=== PATIENT | male | born 1955 | race Caucasian/White ===

== ENCOUNTER 2017-02-06 07:41 | Emergency (ER) | payer BC ==
[~2017-02-06] VITALS: Ht 167.6 cm; Wt 81.6 kg
[2017-02-06 08:59] LABS: BASO % 0.2 % (0.0-1.0); EOS # 0.1 K/mm3 (0.0-0.50); EOS % 0.5 % (0.0-3.0); LARGE UNSTAINED CELL # 0.2 K/mm3 (0.0-0.4); LARGE UNSTAINED CELL % 1.4 % (0.0-4.0); LYMPH # 1.1 K/mm3 (1.5-4.5); LYMPH % 5.9 % (24.0-44.0); MEAN CORPUSCULAR HEMOGLOBIN 31.2 pg (27.0-33.0); MEAN CORPUSCULAR VOLUME 91.8 fl (80.0-96.0); MONO % 6.5 % (0.0-5.0); NEUTROPHILS # 12.7 K/mm3 (1.8-7.7); NEUTROPHILS % 85.5 % (36.0-66.0); PLATELET COUNT, AUTOMATED 191 k/mm3 (150-450); RED CELL DISTRIBUTION WIDTH 12.6 % (11.5-14.5); WHITE BLOOD COUNT 14.9 K/mm3 (4.0-10.0)
[2017-02-06 09:13] LABS: ALBUMIN 3.1 GM/DL (3.2-5.2); ALBUMIN/GLOBULIN RATIO 0.67 (1.00-1.93); ALKALINE PHOSPHATASE 101 U/L (45-117); ALT/SGPT 22 U/L (12-78); ANION GAP 9 MEQ/L (8-16); AST/SGOT 16 U/L (15-37); BILIRUBIN,DIRECT 0.2 MG/DL (0.0-0.2); BILIRUBIN,TOTAL 0.7 MG/DL (0.2-1.0); BLOOD UREA NITROGEN 14 MG/DL (7-18); CALCIUM LEVEL 9.4 MG/DL (8.8-10.2); CARBON DIOXIDE LEVEL 26 MEQ/L (21-32); CHLORIDE LEVEL 101 MEQ/L (98-107); GLOMERULAR FILTRATION RATE > 60.0 (>49); GLUCOSE, FASTING 304 MG/DL (80-110); POTASSIUM SERUM 3.9 MEQ/L (3.5-5.1); SODIUM LEVEL 136 MEQ/L (136-145); TOTAL PROTEIN 7.7 GM/DL (6.4-8.2)
[2017-02-06 09:15] LABS: ERYTHROCYTE SEDIMENTATION RATE 65 mm/hr (0-20)
--- NOTE | 2017-02-06 09:29 | ECGEPIP ---
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
[2017-02-06] MEDS ORDERED: ERTAPENEM SODIUM 1 GM in NS MINI-BAG PLUS 50 ML IV ONE (09:45)
--- NOTE | 2017-02-06 10:02 | REP ---
History of ulcer/osteomyelitis. I have not been given history of recent trauma, however, there is a divergent Lisfranc variant with the first cuneiform displaced medially and the second cuneiform displaced laterally along with abnormal widening between the bases of the 1st and 2nd metatarsals. There is evidence of a comminuted fracture involving all three cuneiforms and I cannot rule out the possibility of a concomitant cuboid fracture. There is a fracture of the navicular along its distal and lateral margins. The bones are demineralized. There is extensive soft tissue swelling. There is a plantar calcaneal heel spur. IMPRESSION: Marked mid foot abnormalities with fractures and Lisfranc divergent variant as described above. Plain film examination cannot rule out osteomyelitis. Signed by Edin Barboza DO 02/06/2017 10:11 A
--- NOTE | 2017-02-06 10:05 | REP ---
REASON: Hypertension. COMPARISON: None. FINDINGS: The superior mediastinal structures are midline. The cardiac silhouette is unremarkable in size, shape, and position. The diaphragmatic surfaces of the lungs are regular, and the costophrenic angles are clear. The pulmonary avendaño are clear. The imaged osseous structures are intact. IMPRESSION: There is no acute cardiopulmonary disease. Signed by Edin Barboza DO 02/06/2017 10:11 A
[2017-02-06 10:50] VITALS: BP 199/84
[2017-02-06] MEDS ORDERED: HumuLIN R (REGULAR) INSULIN (NovoLIN R) **100U/ML** PER UNIT SC STA (11:37)
[2017-02-06] MEDS ORDERED: LISINOPRIL 10 MG TAB PO ONE (13:00)
[2017-02-06 13:21] VITALS: BP 209/71
== END 2017-02-06 14:51 | disposition short-term general hospital (02) ==
LOC: M ED 08:36
DX: E11.618 Type 2 diabetes mellitus with other diabetic arthropathy (principal); I10 Essential (primary) hypertension; M86.172 Other acute osteomyelitis, left ankle and foot; M77.32 Calcaneal spur, left foot; S92.242A Displaced fracture of medial cuneiform of left foot, initial encounter for closed fracture; S92.222A Displaced fracture of lateral cuneiform of left foot, initial encounter for closed fracture; S92.252A Displaced fracture of navicular [scaphoid] of left foot, initial encounter for closed fracture; X58.XXXA Exposure to other specified factors, initial encounter; Y92.9 Unspecified place or not applicable; Y93.9 Activity, unspecified; Y99.9 Unspecified external cause status; Z82.49 Family history of ischemic heart disease and other diseases of the circulatory system; Z83.49 Family history of other endocrine, nutritional and metabolic diseases; Z82.3 Family history of stroke; Z79.4 Long term (current) use of insulin; Z79.899 Other long term (current) drug therapy
CPT/HCPCS: 36415; 71020; 73630; 80048; 80076; 82550; 82553; 83036; 83605; 84443; 85025; 85652; 86140; 87040; 87070; 87077; 87186; 87205; 93005; 93041; 94760; 96372; 96374; 99285; J1335

== ENCOUNTER 2017-02-16 10:28 | Inpatient (IN) | payer BC ==
[~2017-02-16] VITALS: Ht 167.6 cm; Wt 87.6 kg
[2017-02-18] MEDS: MIRALAX *UNIT DOSE* 17GM PACKET PO SCH (09:00)
[2017-02-18] MEDS ORDERED: FLEET ENEMA PR PRN (13:30)
[2017-02-18] MEDS ORDERED: MOM 30ML SUSPENSION UDC PO PRN (13:30)
[2017-02-18 14:00] VITALS: BP 168/74
--- NOTE | 2017-02-18 14:24 | CR.PDOC ---
[facility] Consultation Consultation DATE OF ADMISSION: 02/18/17 ATTENDING: Dr. Rivera PCP: HPI: 61yoM transferred from [facility] to [facility] under the care of Dr Rivera. Pt was treated there after developing a left foot ulcer approximately 2 weeks prior to admission seen in the ED 02/06/17 and transferred to [facility]. He had I/D 02/07 and was found to have sepsis, S aureus/Strep milleri OM as per bone culture. He was newly diagnosed IDDM during the admission with A1c 10.0. Noted to have PVD undergoing left femoral endarterectomy/ Femoral popliteal bypass 02/10/17. Found to have RLE DVT 02/15/17 now on Xarelto. Denies any fevers , chills, weakness, fatigue, DOUGLAS, CP, SOB, cough, palpitations, abdominal pain, N /V/D or changes in bowel or bladder habits. Upon presentation to the hospital the hospitalist team was consulted to assist with medical management. PMHx: OM left foot. Bone culture S aureus/Strep milleri. Seen by ID, Dr Arnav Jang , IV cefazolin until 03/25/17. PICC placed. H/O MSSA/left foot ulcer Left Charcot foot. DM HTN PVD. Iliac artery occlusion, S/P left femoral endarterectomy/Left fem pop bypass 02/10/17. Vascular-Dr Dodge. Peripheral neuropathy CKD2 alcohol use DVT RLE TTE [facility] 02/07/17 EF 55%, nml diastolic function. Thrombocytopenia. Hematology Dr Yaa Jang. PSHX: Left foot wound I/D 02/07 [facility] PICC 02/11 [facility]. S/P left femoral endarterectomy/Left fem pop bypass 02/10/17 [facility] SOCHX: Resides in: [facility] Marital Status: Tobacco use: former smoker, quit 1991 ETOH: 2-3 beers daily Illicit Drugs: Denies FAMHX: Mother: Alive, DM, HTN Father: , CAD, CVA, HTN Siblings: Alive, well Children: Alive, well Unexpected deaths due to medical reasons: None. ROS: As noted in HPI, otherwise 11pt ROS of systems reviewed and unremarkable. PE: GEN: 61yoM, appears stated age. Well-nourished, well developed. No acute distress. Alert and oriented x 3. Flat affect, avoids eye contact. HEENT: Normocephalic, atraumatic. Pupils are equal, round, and reactive to light. Extraocular movements are intact. No nystagmus appreciated. Sclera are nonicteric. Conjunctiva without injection. Nose midline. Nasal turbinates without bogginess. Moist mucous membranes. Dentition fair. Pharynx pink and moist, no cobblestoning. Neck supple, trachea midline. No lymphadenopathy or thyromegaly appreciated. CHEST: Regular rate and rhythm, +S1, +S2 LUNGS: Clear to auscultation bilaterally. No wheezes, rales, or rhonchi. Breathing appears symmetric and easy. Patient is speaking in full sentences. No accessory muscle use. ABD: Round, soft, non-tender, non-distended. +Bowel sounds throughout. No rebound or guarding. No costovertebral angle tenderness. EXT: dressing intact Left foot. 1-2mm distal pretib edema. SKIN: [place], dry, warm. Capillary refill <2sec. No rashes. NEURO: Alert and oriented x 3. Cranial nerves III-XII are intact. No focal deficits appreciated. labs pending. CBC/CMP/UA/UC A&P: 61yoM transferred from [facility] to [facility] under the care of Dr Rivera. Pt was treated there after developing a left foot ulcer approximately 2 weeks prior to admission seen in the ED 02/06/17 and transferred to [facility]. He had I/D 02/07/17 and was found to have S aureus/Strep milleri OM as per bone culture. He was newly diagnosed IDDM during the admission with A1c 10.0. Noted to have PVD undergoing left femoral endarterectomy/ Femoral popliteal bypass 02/10/17. Found to have RLE DVT 02/15/17 now on Xarelto. The patient is admitted to PRU Dr. Rivera's service. 1. Sepsis/Left foot OM, S/P ID 02/07/17. S aureus/Strep Milleri. Seen by ID at [facility]. PICC in place. IV Ancef to be cont'd until 03/25/17. Plan for f/u with ID 2-3 weeks as per notes. Labs pending. 2. PVD/Left femoral endarterectomy/ Left femoral popliteal bypass. Plan for f/u with Vasc Surgery 2 weeks. Rehab as per ARU. Wound care, PT/OT, Pain control,Bowel care 3. IDDM. CC diet, Levemir/SSI. Cont Statin. Arrange podiatry at d/c. 4. RLE DVT. On Xarelto. Plan for outpt f/u with hematology to determine long- term anticoagulation. 5. Thrombocytopenia. Etiology c/w infection/antibiotics. HIT Ab screen/ Serotonin release assay as per [facility] Hematology. Peripheral smear with toxic granulation noted indicative of infection. Monitor CBC. Outpt f/u with hematology 2 weeks. 6. HTN. Continue Norvasc, Lisinopril, Coreg. 7. CKD2. SCr 1.13. Labs pending. 8. Diabetic neuropathy. Patient remains on gabapentin. 9. History of alcohol use. Continue multivitamin and thiamine supplement. 10. Hyperlipidemia. Continue Lipitor 20 mg daily. 11. GERD. Continue Protonix. DVT prophylaxis. Pt on Xarelto as above. Vital Signs/I&O Vital Signs Label Value Date Time Patient Temperature 99.0 degrees F 02/18/17 1400 Temperature Source Temporal 02/18/17 1400 Pulse 72 02/18/17 1400 Respiratory Rate 16 bpm 02/18/17 1400 Blood Pressure Assessment 168/74 (105) 02/18/17 1400 Bedside Pulse Oximetry 96 % 02/18/17 1400 Item Value Date Time Oxygen Delivery Method Room Air 02/18/17 1400 Laboratory Data Labs 24H pending. Allergies Coded Allergies: No Known Allergies (Unverified , 02/06/17) Home Medications Scheduled (Daily Ben) 1 Tab Tab, 1 TAB PO DAILY, (Reported) STARTED AT [facility] (Senna Plus 8.6-50 mg) 1 Tab Tab, 2 TAB PO BID, (Reported) STARTED AT [facility] Amlodipine Besylate (Amlodipine Besylate) 5 Mg Tab, 5 MG PO BID, (Reported) STARTED AT [facility] Atorvastatin Calcium (Atorvastatin Calcium) 20 Mg Tab, 20 MG PO QHS, (Reported) STARTED AT [facility] Bimatoprost (Lumigan) 50 Drop/2.5 Ml Flora, 1 DROP OU QHS, (Reported) Carvedilol (Carvedilol) 12.5 Mg Tab, 12.5 MG PO BID, (Reported) STARTED AT [facility] Cefazolin Sodium (Cefazolin Sodium) 2 Gm/20 Ml Inj, 2 GM IV Q8H, (Reported) STARTED AT [facility] Docusate Sodium (Docusate Sodium) 100 Mg Cap, 100 MG PO BID, (Reported) STARTED AT [facility] Insulin Glargine (Lantus) 1 Units/0.01 Ml Susp, 20 UNITS SC QHS, (Reported) STARTED AT [facility] Insulin Human Lispro (Humalog) 100 Unit/Ml Inj, 1 DOSE SC WM, (Reported) STARTED AT [facility] Lactobacillus Acidophilus (Bacid) 1 Tab Tab, 1 TAB PO BID, (Reported) STARTED AT [facility] Lisinopril (Lisinopril) 20 Mg Tab, 20 MG PO DAILY, (Reported) STARTED AT [facility] Pantoprazole Sodium (Pantoprazole Sodium) 40 Mg Tab, 40 MG PO DAILY, (Reported) STARTED AT [facility] Polyethylene Glycol (Miralax) 1 Pow Pow, 17 GM PO DAILY, (Reported) STARTED AT [facility] Rivaroxaban (Xarelto) 15 Mg Tab, 15 MG PO BID, (Reported) TAKE FOR 19 DAYS - STARTED AT [facility] Thiamine Hcl (Thiamine Hcl) 100 Mg Tab, 100 MG PO DAILY, (Reported) STARTED AT [facility] Timolol Maleate (Timolol Maleate) 0.5 % Flora, 1 DROP OU BID, (Reported) Scheduled PRN Oxycodone HCl (Oxycodone HCl) 10 Mg Tab, 10 MG PO Q4H PRN for PAIN, (Reported) STARTED AT [facility] Nereida Phillips Feb 18, 2017 14:24
[2017-02-18] MEDS ORDERED: CEFA2INJ IV (14:56)
[2017-02-18] MEDS ORDERED: THIA100TA PO (14:56)
[2017-02-18] MEDS ORDERED: ATOR1TAB21 PO (14:56)
[2017-02-18] MEDS ORDERED: PANT40TA2 PO (14:56)
[2017-02-18] MEDS ORDERED: LISI-538 PO (14:56)
[2017-02-18] MEDS ORDERED: OXYC10TA12 PO (14:56)
[2017-02-18] MEDS ORDERED: MIRA33504 PO (14:56)
[2017-02-18] MEDS ORDERED: BACITAB3 PO (14:56)
[2017-02-18] MEDS ORDERED: DOCU100C PO (14:56)
[2017-02-18] MEDS ORDERED: DAILTAB51 PO (14:56)
[2017-02-18] MEDS ORDERED: INSULANT SC (14:56)
[2017-02-18] MEDS ORDERED: SENN1TAB2 PO (14:56)
[2017-02-18] MEDS ORDERED: AMLO5TAB2 PO (14:56)
[2017-02-18] MEDS ORDERED: CARV12.5 PO (14:56)
[2017-02-18] MEDS ORDERED: HUMA100I3 SC (14:56)
[2017-02-18] MEDS ORDERED: XARE15TA PO (14:57)
[2017-02-18] MEDS ORDERED: TIMO5OPD OU (14:58)
[2017-02-18] MEDS ORDERED: BIMA01SOL OU (14:58)
--- NOTE | 2017-02-18 15:33 | PMRNOTEPD ---
PMR Note This is an addendum to the history and physical just dictated. Patient does have a thrombocythemia that has been progressive today being approximately 75, 000 platelets. This is felt by the care team in [place] to be secondary to the MSSA infection. He does have CBC with differential for tomorrow and additional CBC ordered. They felt it was acceptable risk to put patient on the Xarelto to prevent any further DVTs and other clotting problems. DEIRDRE VILLEGAS MD Feb 18, 2017 15:33
[2017-02-18] MEDS ORDERED: HEPARIN SOD (PORCINE) 5000 UNITS/ML VIAL SC SCH (16:00)
--- NOTE | 2017-02-18 16:19 | PMRHPE ---
DATE OF ADMISSION: 02/18/2017 REASON FOR ADMISSION: Rehabilitation of diabetic foot ulcer on the left lower extremity status post 02/10/2017, femoral-popliteal bypass grafting and 02/08/2017, left foot diabetic ulcer debridement, that were done at [facility] in [place]. HISTORY OF PRESENT ILLNESS: The patient is a 61-year-old white male who had unrecognized diabetes mellitus type 2, and had already started developing renal disease, peripheral vascular disease, polyneuropathy, which led to the development of the ulceration on the medial left foot. 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 The patient, in further evaluation, was found to have the other illnesses of diabetes noted above, along with acute on chronic kidney disease, has hypertension. His stay was complicated by the development of a deep venous thrombosis (DVT) he reports of the right leg, and does have palpable cord and discharge instruction report left popliteal vein. Wound did culture two bacteria: Methicillin-sensitive Staphylococcus aureus and Streptococcus aeruginosa, both of which were sensitive to cefazolin, and the patient was treated with that and continues in treatment with it. He is transferred today to [facility] for ongoing care of his medical problems, but also rehabilitation to regain mobility and activities of daily living (ADL) skills to transition to home and home care. It is recommended for the patient that he should also followup with the wound care clinic including hyperbaric oxygen treatments. He is to see Dr. José 03/09/2017, at 1 p.m. at [address] [place] [address], [address] Huggins on 03/02/2017, at 2:15 p.m. at [facility], [address] [place] [address], [id number], [place], and to see Dr. Miranda in oncology in about 2-3 weeks, and his respiratory care assistant for ongoing wound care when he leaves this facility. The patient's past medical history was negative with no basic prior medical problems and no prior surgeries, and the patient was on no prescription medications prior to admission. He has no known drug allergies. He is transferred to us today on: - amlodipine 5 mg every 12 hours - atorvastatin 20 mg nightly - Coreg 12.5 mg twice a day - cefazolin 2 grams infused every eight hours - multivitamin once a day - Colace twice a day by mouth - long-acting insulin 20 units subcutaneous at bedtime, patient to check blood sugars before meals and at bedtime, and use short-acting regular insulin, sliding scale - lactobacillus probiotic one capsule twice a day - lisinopril 20 mg daily - oxycodone recommended 10 mg every four hours as needed for severe pain, maximum of 60 mg per day - pantoprazole 40 mg daily - MiraLax 17 grams daily - Xarelto 15 mg twice a day - Lucy-Colace two tablets of 8.6/50 twice a day - half-strength Dakin's solution to flush wound for cleaning two times a day for the next seven days - thiamine 100 mg daily I am transitioning the oxycodone to OxyContin 10 mg twice a day with oxycodone 5 mg every four hours as needed pain on a 6/10 scale. Also adding Tylenol for pain and fever, and gabapentin 100 mg twice a day, and then 200 mg at bedtime for neurogenic pain from diabetic polyneuropathy. REVIEW OF SYSTEMS: Basically, left foot pain and drainage. Some pain in the left thigh along his femoral-popliteal (fem-pop) bypass surgery, and some pain behind the right knee into the calf on the DVT. Otherwise negative on 12-point system. PHYSICAL EXAMINATION: The patient is a well-nourished, well-developed vbzg-atrnat-dee white male who is alert and oriented times four. Speech is clear, coherent and appropriate. Affect is pleasant and cooperative. He appears to be in mild musculoskeletal distress principally for his left lower extremity. He is lying with the left lower extremity rotated out so there is no pressure on the wound which is enclosed in a bulky dressing, and there is no dressing and erin have been removed for the groin incision from the fem-pop surgery. VITAL SIGNS: Are not yet available from nursing. HEENT: Normocephalic, atraumatic. Pupils show conjugate vision and are equal size and reactive to light and accommodation. Hearing is good. Oropharynx without notable lesion. NECK: Supple. No carotid bruits appreciated on auscultation. LUNGS: Clear in all avendaño to auscultation. HEART: Coronary shows a regular rate and rhythm with normal S1, S2. 2/4 radial pulses. ABDOMEN: Has mild distention with diffuse tympany and some small stool is felt on palpation. Left groin incision is healing well. EXTREMITIES: Motor is intact in bilateral upper extremities. Sensation to light touch and vibration is intact in bilateral upper extremities. In bilateral lower extremities, the patient shows decreased light touch in the distal third of the leg into the foot and normal sensation proximal to that to light touch and normal sensation in both lower extremities for the foot, leg and thigh. LABORATORY AND DIAGNOSTICS: No discharge summary was sent so I do not have any current laboratory, x-ray data or diagnostic data. IMPRESSION/DIAGNOSES: 1. Diabetic ulcer of the left ulcer secondary to diabetic-caused peripheral vascular disease, polyneuropathy. This has resulted in the patient with recent sepsis causing some debilitation, but also an ongoing MSSA and Streptococcus aeruginosa infected left diabetic ulcer that he is not able to bear weight on, and he needs to learn adaptive mobility and activities of daily living (ADLs) to return to home, as well as continue his antibiotic and debridement cleaning treatments to the wound. Therefore, I do feel the patient has extensive medical problems as well as rehabilitation needs that are requiring acute intensive rehabilitation unit. He requires physical and occupational therapy, wound PT, rehabilitation nursing, and medicine and physiatry management. Consideration for possible podiatry consultation will be considered as the patient proceeds in evaluation and treatment here. 2. Diabetes mellitus. The patient is a new type 2 diabetic who has had this silently for quite a while to have all these multiple complications, which were also partially shown by a hemoglobin A1c of 10.0 on admission to [facility]. He will need diabetic education, consistent carbohydrate diet, and at this point in time, is on long-acting insulin at night and sliding scale to gain greater control of his diabetes. 3. Hypertension. This is fairly stable. We will continue with medications noted above. POST-ADMISSION PHYSICIAN EVALUATION: The patient as noted above with multiple medical problems related to diabetes that resulted in the diabetic ulcer, that he is now unable to bear weight on his left lower extremity, needs ongoing treatment including deep venous thrombosis (DVT) prophylaxis, as well as the care as noted above. He is reasonably complex and will benefit from treatment here in an acute intensive rehabilitation environment. Right now, he is notably impaired in mobility and ADLs, and must make significant progress before he is able to transition to home care status, and he is very motivated to do this and does appear quite capable of participating in three hours of physical and occupational therapy per day. It is anticipated he will return home with his who is very supportive to him, and he has a good prognosis for the program and return to home. However, to totally heal the wound and not transition to an amputation, I would say his prognosis is only fair. My estimated length of stay for this gentleman is 7-10 days, depending on how medical management of the infection proceeds and his ability to consistently participate in therapy. I have transitioned him on to some OxyContin to give him some continuous relief, because every time he gets up, the pressure to the lower extremity markedly increases the pain and so, as we are going to have him up and active quite a bit, he will need continuous relief, and I will have backup for severe pain with some oxycodone. Also, I think part of his pain is neurogenic due to the diabetic polyneuropathy, and I am starting him on the gabapentin 100 mg twice a day and 200 at bedtime, and we will look to transition up to a more therapeutic dose as the patient tolerates. Time spent on this chart review, history and physical (H and P), and documentation is greater than 70 minutes.
[2017-02-18] MEDS ORDERED: HumuLIN R (REGULAR) INSULIN (NovoLIN R) **100U/ML** PER UNIT SC SCH ×2 (17:30→21:00)
[2017-02-18] MEDS: RIVAROXABAN 15 MG TAB (XARELTO) PO SCH (17:51)
[2017-02-18] MEDS: HumaLOG INSULIN (NovoLOG) PER UNIT SC SCH ×2 (17:52→21:00)
[2017-02-18] MEDS: SODIUM CHLORIDE 0.9% INJ 10 ML SYR IV PRN (18:40)
[2017-02-18 20:00] VITALS: BP 166/74
[2017-02-18] MEDS: CARVedilol 12.5 MG TAB PO SCH (20:57)
[2017-02-18] MEDS: ATORVASTATIN 20 MG TAB PO SCH (20:58)
[2017-02-18] MEDS: DOCUSATE SODIUM 100 MG CAP PO SCH (20:58)
[2017-02-18] MEDS: GABAPENTIN 100 MG CAP PO SCH (20:58)
[2017-02-18] MEDS: oxyCODONE 10 MG CR TAB PO SCH (20:59)
[2017-02-18] MEDS: LEVEMIR (INSULIN DETEMIR) 1 UNITS/0.01ML SC SCH (20:59)
[2017-02-18] MEDS: SENNA 8.6 MG TAB (SENOKOT) PO SCH (20:59)
[2017-02-18] MEDS: LACTOBACILLUS ACIDOPHILUS CAP (BACID) PO SCH (20:59)
[2017-02-18] MEDS: DAKIN'S 0.25% HALF-STRENGTH SOLN 480 ML TOP SCH (21:00)
[2017-02-19] MEDS: SODIUM CHLORIDE 0.9% INJ 10 ML SYR IV PRN ×3 (00:23→23:13)
[2017-02-19 05:30] VITALS: BP 164/74
[2017-02-19] MEDS: SODIUM CHLORIDE 0.9% INJ 10 ML SYR IV SCH ×2 (06:04→17:11)
[2017-02-19] MEDS: GABAPENTIN 100 MG CAP PO SCH ×3 (06:07→21:05)
[2017-02-19 06:47] LABS: BASO # 0.1 K/mm3 (0.0-0.2); BASO % 0.7 % (0.0-1.0); EOS # 0.4 K/mm3 (0.0-0.50); EOS % 3.8 % (0.0-3.0); LARGE UNSTAINED CELL # 0.2 K/mm3 (0.0-0.4); LARGE UNSTAINED CELL % 1.5 % (0.0-4.0); LYMPH % 15.2 % (24.0-44.0); MEAN CORPUSCULAR HGB CONC 31.7 g/dl (32.0-36.5); MEAN CORPUSCULAR VOLUME 91.5 fl (80.0-96.0); MONO # 0.9 K/mm3 (0.0-0.8); MONO % 7.4 % (0.0-5.0); NEUTROPHILS # 8.4 K/mm3 (1.8-7.7); NEUTROPHILS % 71.4 % (36.0-66.0); RED CELL DISTRIBUTION WIDTH 12.4 % (11.5-14.5); WHITE BLOOD COUNT 11.7 K/mm3 (4.0-10.0)
[2017-02-19 06:56] LABS: ALBUMIN 1.8 GM/DL (3.2-5.2); ALBUMIN/GLOBULIN RATIO 0.49 (1.00-1.93); ALKALINE PHOSPHATASE 62 U/L (45-117); ALT/SGPT 6 U/L (12-78); ANION GAP 6 MEQ/L (8-16); AST/SGOT 17 U/L (15-37); BILIRUBIN,TOTAL 0.3 MG/DL (0.2-1.0); BLOOD UREA NITROGEN 11 MG/DL (7-18); CALCIUM LEVEL 7.9 MG/DL (8.8-10.2); CARBON DIOXIDE LEVEL 32 MEQ/L (21-32); CHLORIDE LEVEL 105 MEQ/L (98-107); CREATININE FOR GFR 0.98 MG/DL (0.70-1.30); GLOMERULAR FILTRATION RATE > 60.0 (>49); GLUCOSE, FASTING 73 MG/DL (80-110); POTASSIUM SERUM 3.7 MEQ/L (3.5-5.1); SODIUM LEVEL 143 MEQ/L (136-145); TOTAL PROTEIN 5.5 GM/DL (6.4-8.2)
[2017-02-19 07:15] LABS: PLATELET COUNT, AUTOMATED 93 k/mm3 (150-450)
[2017-02-19] MEDS: HumaLOG INSULIN (NovoLOG) PER UNIT SC SCH ×4 (07:30→21:00)
[2017-02-19] MEDS: MIRALAX *UNIT DOSE* 17GM PACKET PO SCH (08:35)
[2017-02-19] MEDS: THIAMINE 100 MG TAB PO SCH (08:36)
[2017-02-19] MEDS: PANTOPRAZOLE 40MG TAB (PROTONIX) PO SCH (08:36)
[2017-02-19] MEDS: RIVAROXABAN 15 MG TAB (XARELTO) PO SCH ×2 (08:36→17:11)
[2017-02-19] MEDS: LACTOBACILLUS ACIDOPHILUS CAP (BACID) PO SCH ×2 (08:37→21:05)
[2017-02-19] MEDS: MULTIVITAMINS/MINERALS THERAP 1 TAB PO SCH (08:37)
[2017-02-19] MEDS: SENNA 8.6 MG TAB (SENOKOT) PO SCH ×2 (08:37→21:05)
[2017-02-19] MEDS: DOCUSATE SODIUM 100 MG CAP PO SCH ×2 (08:37→21:04)
[2017-02-19] MEDS: oxyCODONE 10 MG CR TAB PO SCH ×2 (08:37→21:06)
[2017-02-19] MEDS: amLODIPine 5 MG TAB PO SCH (08:38)
[2017-02-19] MEDS: CARVedilol 12.5 MG TAB PO SCH ×2 (08:38→21:06)
[2017-02-19] MEDS: LISINOPRIL 20 MG TAB PO SCH (08:38)
[2017-02-19] MEDS ORDERED: MULTIVITAMINS/MINERALS THERAP 1 TAB PO SCH (09:00)
[2017-02-19] MEDS: TIMOLOL MALEATE 0.5% OPHTH SOLN 5 ML OU SCH (09:00)
[2017-02-19] MEDS ORDERED: CLOPIDOGREL 75 MG TAB PO SCH (09:00)
[2017-02-19] MEDS: DAKIN'S 0.25% HALF-STRENGTH SOLN 480 ML TOP SCH ×2 (12:08→21:07)
[2017-02-19 14:00] VITALS: BP 125/60
[2017-02-19] MEDS: oxyCODONE 5MG TAB PO PRN (14:46)
[2017-02-19] MEDS ORDERED: FUROSEMIDE 20 MG/2 ML VIAL (J1940) IV ONE (15:00)
[2017-02-19 21:00] VITALS: BP 151/83
[2017-02-19] MEDS: LUMIGAN EYE DROPS (PATIENT'S OWN MED) OU SCH (21:04)
[2017-02-19] MEDS: ATORVASTATIN 20 MG TAB PO SCH (21:05)
[2017-02-19] MEDS: LEVEMIR (INSULIN DETEMIR) 1 UNITS/0.01ML SC SCH (21:07)
[2017-02-20 06:00] VITALS: BP 161/73
[2017-02-20] MEDS: GABAPENTIN 100 MG CAP PO SCH ×3 (06:02→20:26)
[2017-02-20] MEDS: SODIUM CHLORIDE 0.9% INJ 10 ML SYR IV SCH ×2 (06:02→16:15)
[2017-02-20] MEDS: HumaLOG INSULIN (NovoLOG) PER UNIT SC SCH ×4 (07:30→20:33)
[2017-02-20] MEDS: PANTOPRAZOLE 40MG TAB (PROTONIX) PO SCH (08:07)
[2017-02-20] MEDS: RIVAROXABAN 15 MG TAB (XARELTO) PO SCH ×2 (08:07→17:41)
[2017-02-20] MEDS: DOCUSATE SODIUM 100 MG CAP PO SCH ×2 (08:07→20:26)
[2017-02-20] MEDS: MULTIVITAMINS/MINERALS THERAP 1 TAB PO SCH (08:07)
[2017-02-20] MEDS: LISINOPRIL 20 MG TAB PO SCH (08:08)
[2017-02-20] MEDS: THIAMINE 100 MG TAB PO SCH (08:08)
[2017-02-20] MEDS: LACTOBACILLUS ACIDOPHILUS CAP (BACID) PO SCH ×2 (08:08→20:24)
[2017-02-20] MEDS: SENNA 8.6 MG TAB (SENOKOT) PO SCH ×2 (08:08→20:24)
[2017-02-20] MEDS: CARVedilol 12.5 MG TAB PO SCH ×2 (08:09→20:25)
[2017-02-20] MEDS: amLODIPine 5 MG TAB PO SCH (08:09)
[2017-02-20] MEDS: MIRALAX *UNIT DOSE* 17GM PACKET PO SCH (08:10)
[2017-02-20] MEDS: TIMOLOL MALEATE 0.5% OPHTH SOLN 5 ML OU SCH (08:10)
[2017-02-20] MEDS: oxyCODONE 10 MG CR TAB PO SCH ×2 (08:10→20:24)
[2017-02-20] MEDS: DAKIN'S 0.25% HALF-STRENGTH SOLN 480 ML TOP SCH ×2 (11:30→20:29)
[2017-02-20] MEDS: oxyCODONE 5MG TAB PO PRN (11:31)
[2017-02-20 14:00] VITALS: BP 111/57
[2017-02-20 20:00] VITALS: BP 142/80
[2017-02-20] MEDS: ATORVASTATIN 20 MG TAB PO SCH (20:26)
[2017-02-20] MEDS: ACETAMINOPHEN TAB 650MG DOSE (2X325MG) PO PRN (20:27)
[2017-02-20] MEDS: LUMIGAN EYE DROPS (PATIENT'S OWN MED) OU SCH (20:32)
[2017-02-20] MEDS: LEVEMIR (INSULIN DETEMIR) 1 UNITS/0.01ML SC SCH (20:32)
[2017-02-20 20:34] LABS: MEAN CORPUSCULAR HEMOGLOBIN 30.9 pg (27.0-33.0); MEAN CORPUSCULAR HGB CONC 34.1 g/dl (32.0-36.5); MEAN CORPUSCULAR VOLUME 90.6 fl (80.0-96.0); RED CELL DISTRIBUTION WIDTH 12.5 % (11.5-14.5); WHITE BLOOD COUNT 12.3 K/mm3 (4.0-10.0)
[2017-02-20 20:57] LABS: CREATININE FOR GFR 1.45 MG/DL (0.70-1.30); GLOMERULAR FILTRATION RATE 52.3 (>49)
[2017-02-20 20:58] LABS: ALBUMIN 1.9 GM/DL (3.2-5.2); ALBUMIN/GLOBULIN RATIO 0.49 (1.00-1.93); BILIRUBIN,TOTAL 0.3 MG/DL (0.2-1.0); CALCIUM LEVEL 7.6 MG/DL (8.8-10.2); POTASSIUM SERUM 3.8 MEQ/L (3.5-5.1); TOTAL PROTEIN 5.8 GM/DL (6.4-8.2)
[2017-02-21] MEDS: SODIUM CHLORIDE 0.9% INJ 10 ML SYR IV PRN ×2 (00:02→00:49)
[2017-02-21] MEDS: SODIUM CHLORIDE 0.9% INJ 10 ML SYR IV SCH ×2 (05:57→17:37)
[2017-02-21 06:00] VITALS: BP 138/70
[2017-02-21] MEDS: GABAPENTIN 100 MG CAP PO SCH ×3 (08:34→20:50)
[2017-02-21] MEDS: PANTOPRAZOLE 40MG TAB (PROTONIX) PO SCH (08:34)
[2017-02-21] MEDS: amLODIPine 5 MG TAB PO SCH (08:34)
[2017-02-21] MEDS: HumaLOG INSULIN (NovoLOG) PER UNIT SC SCH ×4 (08:34→20:51)
[2017-02-21] MEDS: DOCUSATE SODIUM 100 MG CAP PO SCH ×2 (08:35→20:50)
[2017-02-21] MEDS: LISINOPRIL 20 MG TAB PO SCH (08:35)
[2017-02-21] MEDS: LACTOBACILLUS ACIDOPHILUS CAP (BACID) PO SCH ×2 (08:35→20:50)
[2017-02-21] MEDS: MULTIVITAMINS/MINERALS THERAP 1 TAB PO SCH (08:35)
[2017-02-21] MEDS: oxyCODONE 10 MG CR TAB PO SCH ×2 (08:35→20:56)
[2017-02-21] MEDS: CARVedilol 12.5 MG TAB PO SCH ×2 (08:35→20:55)
[2017-02-21] MEDS: THIAMINE 100 MG TAB PO SCH (08:36)
[2017-02-21] MEDS: MIRALAX *UNIT DOSE* 17GM PACKET PO SCH (08:36)
[2017-02-21] MEDS: TIMOLOL MALEATE 0.5% OPHTH SOLN 5 ML OU SCH (08:36)
[2017-02-21] MEDS: SENNA 8.6 MG TAB (SENOKOT) PO SCH ×2 (08:37→20:50)
[2017-02-21] MEDS: DAKIN'S 0.25% HALF-STRENGTH SOLN 480 ML TOP SCH (08:37)
[2017-02-21] MEDS: RIVAROXABAN 15 MG TAB (XARELTO) PO SCH ×2 (08:38→17:37)
[2017-02-21 09:21] LABS: MEAN CORPUSCULAR HEMOGLOBIN 29.8 pg (27.0-33.0); MEAN CORPUSCULAR HGB CONC 32.9 g/dl (32.0-36.5); MEAN CORPUSCULAR VOLUME 90.7 fl (80.0-96.0); RED CELL DISTRIBUTION WIDTH 12.4 % (11.5-14.5); WHITE BLOOD COUNT 12.6 K/mm3 (4.0-10.0)
--- NOTE | 2017-02-21 10:24 | IPNPDOC ---
Cv/Cvn Cv Tsc System Operator Progress Note DATE OF SERVICE: 02/21/17 DATE OF ADMISSION: Feb 18, 2017 at 13:39 INPATIENT REHABILITATION ADMISSION DAY: #3 SUBJECTIVE: Patient is a 61-year-old white male with new-onset diabetes with polyneuropathy and peripheral vascular disease leading to diabetic ulcer of left foot and left femoral popiteal bypass. Patient with some pain overall doing better without other complaints. Patient very motivated and working with therapy. ALLERGIES: See Below MEDICATIONS: Reviewed, see below. OBJECTIVE: VITAL SIGNS: Please see below. PHYSICAL EXAMINATION: GENERAL: Well-nourished well-developed middle-aged white male in mild musculoskeletal distress favoring his left lower extremity which she is doing very good job with keeping from weightbearing on it. He is alert and oriented 4. Speech is clear coherent and appropriate. Affect is pleasant and cooperative. HEENT: Normocephalic/atraumatic. CARDIOVASCULAR: Regular rate and rhythm with normal S1 and S2 and normal 2 out 4 bilateral radial pulses. LUNGS: All avendaño are clear to auscultation with good air movement. ABDOMEN: Benign with normal bowel sounds in all quadrants. NEUROLOGICAL: As above with good motor control of bilateral upper extremities and right lower extremity. SKIN: Healing Left groin incision but still draining left foot incision. LABORATORY DATA: Reviewed. Please see below. MICROBIOLOGY: Please see below. IMAGING: No imaging during this admission. DVT prophylaxis ordered?: Patient doing well on Xeralto. ASSESSMENT AND PLAN: 1. Rehabilitation of diabetic foot ulcer due to polyneuropathy of diabetes and peripheral vascular disease of diabetes: Patient doing well in following instructions and learning mobility/transfer and ADL activities with physical and occupational therapy. 2. Type 2 diabetes mellitus: Late sugars of been under fairly good control since admission , so no change in treatment at this time. 3. Diabetic left foot wound: Wound care consult has been sent and anticipate recommendations soon. Patient continuing on IV Ancef. Wound cultures pending. 4. Anemia: The anemia is improving slowly but white count is also rising slowly and will need to continue to be monitored. 5. Acute on chronic renal disease: BUN still rising creatinine still elevated will continue to with medical consultants. TIME SPENT: Chart Review, examination and documentation greater than 35 minutes. Allergies Coded Allergies: No Known Allergies (Unverified , 02/06/17) Vital Signs Vital Signs Date Time Temp Pulse Resp B/P (MAP) Pulse Ox O2 Delivery O2 Flow Rate FiO2 02/21/17 08:35 18 02/21/17 08:34 78 138/70 02/21/17 06:00 99.1 90 Room Air Laboratory Data CBC/BMP Laboratory Tests 02/20/17 20:21 Red Blood Count 2.85 L, Mean Corpuscular Volume 90.6, Mean Corpuscular Hemoglobin 30.9, Mean Corpuscular Hemoglobin Concent 34.1, Red Cell Distribution Width 12.5, Calcium Level 7.6 L, Aspartate Amino Transf (AST/SGOT) 20, Alanine Aminotransferase (ALT/SGPT) 6 L, Alkaline Phosphatase 62, Total Bilirubin 0.3, Total Protein 5.8 L, Albumin 1.9 L 02/21/17 08:55 Red Blood Count 3.10 L, Mean Corpuscular Volume 90.7, Mean Corpuscular Hemoglobin 29.8, Mean Corpuscular Hemoglobin Concent 32.9, Red Cell Distribution Width 12.4 Labs 24H Laboratory Tests 2 02/20/17 12:01: Bedside Glucose (Misc Panel) 201H 02/20/17 16:23: Bedside Glucose (Misc Panel) 100 02/20/17 20:20: Bedside Glucose (Misc Panel) 191H 02/20/17 20:21: Anion Gap 6L, Glomerular Filtration Rate 52.3, Blood Urea Nitrogen 19#H, Creatinine 1.45H, Sodium Level 137, Potassium Level 3.8, Chloride Level 101, Carbon Dioxide Level 30, Calcium Level 7.6L, Aspartate Amino Transf (AST/SGOT) 20, Alanine Aminotransferase (ALT/SGPT) 6L, Alkaline Phosphatase 62, Total Bilirubin 0.3, Total Protein 5.8L, Albumin 1.9L, Albumin/Globulin Ratio 0.49L 02/21/17 06:01: Bedside Glucose (Misc Panel) 113 Microbiology Microbiology 02/20/17 Blood Culture, Received Pending 02/20/17 Blood Culture, Received Pending 02/18/17 Urine Culture - Final, Complete 02/20/17 Wound Culture, Received Pending Current Medications Current Medications Current Medications Acetaminophen (Tylenol Tab) 650 mg Q4HP PRN PO MILD PAIN (PS 1-4) Last administered on 02/20/17t 20:27; Start 02/18/17 at 13:30; Stop 03/20/17 at 13:29 Amlodipine Besylate (Norvasc) 5 mg DAILY PO Last administered on 02/21/17 08:34 ; Start 02/19/17 at 09:00; Stop 03/21/17 at 08:59 Atorvastatin Calcium (Lipitor) 20 mg QHS PO Last administered on 02/20/17 20: 26; Start 02/18/17 at 21:00; Stop 03/20/17 at 20:59 Carvedilol (COReg) 12.5 mg BID PO Last administered on 02/21/17 08:35; Start at 21:00; Stop 03/20/17 at 20:59 Cefazolin Sodium/ Dextrose 2 gm/IV Miscellaneous Supplies 50 ml @ 75 mls/hr Q8H IV Last administered on 02/21/17 08:36; Start 02/18/17 at 16:00; Stop 02/25/17 at 15:59 Clopidogrel Bisulfate (PLAVix) 75 mg DAILY PO ; Start 02/19/17 at 09:00; Stop at 08:59; Status UNV Docusate Sodium (Colace) 100 mg BID PO Last administered on 02/21/17 08:35; Start 02/18/17 at 21:00; Stop 03/20/17 at 20:59 Gabapentin (Neurontin) 100 mg BID@0700,1300 PO Last administered on 02/21/17 08 :34; Start 02/19/17 at 07:00; Stop 03/21/17 at 06:59 Gabapentin (Neurontin) 200 mg QHS PO Last administered on 02/20/17 20:26; Start 02/18/17 at 21:00; Stop 03/20/17 at 20:59 Heparin Sodium (Heparin (Flush)) 200 units ASDIRECTED PRN IV SEE LABEL COMMENTS Last administered on 02/21/17 00:49; Start 02/18/17 at 18:30; Stop at 18:29 Heparin Sodium (Heparin (Flush)) 200 units PICC IV Last administered on 16:15; Start 02/19/17 at 06:00; Stop 03/21/17 at 05:59 Heparin Sodium (Porcine) (Heparin) 5,000 units RQ8H SC ; Start 02/18/17 at 16:00 ; Stop 02/23/17 at 15:59; Status UNV Home Med (Med Rec Complete!) ASDIRECTED XX ; Start 02/18/17 at 15:00; Stop at 15:14; Status DC Insulin Detemir (Levemir Insulin) 20 units QHS SC Last administered on 20:32; Start 02/18/17 at 21:00; Stop 03/20/17 at 20:59 Insulin Human Lispro (HumaLOG INSULIN) See Protocol Table AC SC Last administered on 02/21/17 08:34; Start 02/18/17 at 17:30; Stop 03/20/17 at 17:29 Insulin Human Lispro (HumaLOG INSULIN) See Protocol Table QHS SC ; Start at 21:00; Stop 03/20/17 at 20:59 Insulin Human Regular (HumuLIN R INSULIN) Sliding Scale 0U for 0-1... AC SC ; Start 02/18/17 at 17:30; Stop 02/18/17 at 17:30; Status DC Insulin Human Regular (HumuLIN R INSULIN) Sliding Scale 0U for 0-1... QHS SC ; Start 02/18/17 at 21:00; Stop 02/18/17 at 21:00; Status DC Lactobacillus Acidophilus (Bacid) 1 ea BID PO Last administered on 02/21/17 08: 35; Start 02/18/17 at 21:00; Stop 03/20/17 at 20:59 Lisinopril (Prinivil) 20 mg DAILY PO Last administered on 02/21/17 08:35; Start 02/19/17 at 09:00; Stop 03/21/17 at 08:59 Magnesium Hydroxide (Milk Of Magnesia) 30 ml DAILYPRN PRN PO CONSTIPATION; Start 02/18/17 at 13:30; Stop 03/20/17 at 13:29 Multivitamins (Theragram-M) 1 tab DAILY PO ; Start 02/19/17 at 09:00; Stop 02/19 at 09:00; Status DC Multivitamins (Theragram-M) 1 tab DAILY PO Last administered on 02/21/17 08:35 ; Start 02/19/17 at 09:00; Stop 03/21/17 at 08:59 Oxycodone HCl (OxyCONTIN) 10 mg BID PO Last administered on 02/21/17 08:35; Start 02/18/17 at 21:00; Stop 02/25/17 at 12:00 Oxycodone HCl (Roxicodone, Oxyir) 5 mg Q6HP PRN PO PAIN SCALE 6-10 Last administered on 02/20/17 11:31; Start 02/18/17 at 15:00; Stop 02/25/17 at 12:00 Pantoprazole Sodium (Protonix) 40 mg DAILY PO Last administered on 02/21/17 08: 34; Start 02/19/17 at 09:00; Stop 03/21/17 at 08:59 Patient Own Medication (Patient'S Own Med) 1 DROP QHS OU Last administered on 20:32; Start 02/19/17 at 21:00; Stop 03/21/17 at 20:59 Polyethylene Glycol (Miralax) 1 pkt DAILY PO Last administered on 02/20/17 08: 10; Start 02/18/17 at 09:00; Stop 03/20/17 at 08:59 Rivaroxaban (Xarelto) 15 mg BID@08,18 PO Last administered on 02/21/17 08:38; Start 02/18/17 at 18:00; Stop 03/09/17 at 12:00 Senna (Senokot) 2 tab BID PO Last administered on 02/20/17 20:24; Start at 21:00; Stop 03/20/17 at 20:59 Sodium Biphosphate/ Sodium Phosphate (Fleet Enema) 1 ea DAILYPRN PRN SD CONSTIPATION; Start 02/18/17 at 13:30; Stop 03/20/17 at 13:29 Sodium Hypochlorite (Dakin'S Solution) 1/2 strength flush... BID TOP Last administered on 02/21/17 08:37; Start 02/18/17 at 21:00; Stop 03/20/17 at 20:59 Sodium Chloride (Saline Lock Flush) 10 ML PICC IV Last administered on 16:15; Start 02/19/17 at 06:00; Stop 03/21/17 at 05:59 Sodium Chloride (Saline Lock Flush) 10ML ASDIRECTED PRN IV SEE LABEL COMMENTS Last administered on 02/21/17 00:49; Start 02/18/17 at 18:30; Stop 03/20/17 at 18:29 Thiamine HCl (Thiamine HCl) 100 mg DAILY PO Last administered on 02/21/17 08:36 ; Start 02/19/17 at 09:00; Stop 03/21/17 at 08:59 Timolol Maleate (Timoptic 0.5% Ophth Flora) 1 drop QAM OU Last administered on 08:36; Start 02/19/17 at 09:00; Stop 03/21/17 at 08:59 DEIRDRE VILLEGAS MD February 21, 2017 10:24
[2017-02-21 14:00] VITALS: BP 153/71
[2017-02-21 20:00] VITALS: BP 175/81
[2017-02-21] MEDS: ATORVASTATIN 20 MG TAB PO SCH (20:50)
[2017-02-21] MEDS: LEVEMIR (INSULIN DETEMIR) 1 UNITS/0.01ML SC SCH (20:51)
[2017-02-21] MEDS: LUMIGAN EYE DROPS (PATIENT'S OWN MED) OU SCH (20:52)
[2017-02-21] MEDS: ACETAMINOPHEN TAB 650MG DOSE (2X325MG) PO PRN (20:56)
[2017-02-22] MEDS: SODIUM CHLORIDE 0.9% INJ 10 ML SYR IV SCH ×2 (05:52→17:43)
[2017-02-22] MEDS: DAKIN'S 0.25% HALF-STRENGTH SOLN 480 ML TOP SCH ×3 (05:53→20:28)
[2017-02-22] MEDS: GABAPENTIN 100 MG CAP PO SCH ×3 (05:53→20:26)
[2017-02-22 06:00] VITALS: BP 138/66
[2017-02-22] MEDS: ACETAMINOPHEN TAB 650MG DOSE (2X325MG) PO PRN (06:15)
[2017-02-22] MEDS: HumaLOG INSULIN (NovoLOG) PER UNIT SC SCH ×4 (07:59→20:26)
[2017-02-22] MEDS: MIRALAX *UNIT DOSE* 17GM PACKET PO SCH (09:00)
[2017-02-22] MEDS: THIAMINE 100 MG TAB PO SCH (09:02)
[2017-02-22] MEDS: MULTIVITAMINS/MINERALS THERAP 1 TAB PO SCH (09:02)
[2017-02-22] MEDS: LACTOBACILLUS ACIDOPHILUS CAP (BACID) PO SCH ×2 (09:02→20:26)
[2017-02-22] MEDS: amLODIPine 5 MG TAB PO SCH (09:03)
[2017-02-22] MEDS: oxyCODONE 10 MG CR TAB PO SCH ×2 (09:03→20:27)
[2017-02-22] MEDS: PANTOPRAZOLE 40MG TAB (PROTONIX) PO SCH (09:03)
[2017-02-22] MEDS: CARVedilol 12.5 MG TAB PO SCH ×2 (09:04→20:26)
[2017-02-22] MEDS: LISINOPRIL 20 MG TAB PO SCH (09:04)
[2017-02-22] MEDS: RIVAROXABAN 15 MG TAB (XARELTO) PO SCH ×2 (09:04→17:43)
[2017-02-22] MEDS: DOCUSATE SODIUM 100 MG CAP PO SCH ×2 (09:04→20:26)
[2017-02-22] MEDS: SENNA 8.6 MG TAB (SENOKOT) PO SCH ×2 (09:05→20:26)
[2017-02-22] MEDS: TIMOLOL MALEATE 0.5% OPHTH SOLN 5 ML OU SCH (09:05)
[2017-02-22 14:00] VITALS: BP 142/65
--- NOTE | 2017-02-22 15:01 | IPNPDOC ---
G[facility] Aide Progress Note DATE OF SERVICE: 02/22/2017 DATE OF ADMISSION: Feb 18, 2017 at 13:39 INPATIENT REHABILITATION ADMISSION DAY: #4 SUBJECTIVE: Patient is a 61-year-old white male with diabetic left foot ulcer secondary to diabetic neuropathy and peripheral vascular disease. Patient notes that his pain trying about 4 out of 10 which is tolerable and denies any GI/, pulmonary or cardiac problems. ALLERGIES: See Below MEDICATIONS: Reviewed, see below. OBJECTIVE: VITAL SIGNS: Please see below. PHYSICAL EXAMINATION: GENERAL: Well-nourished well-developed middle-aged white male ambulating with a walker when see PT and earlier using manual wheelchair mobility doing fairly good at keeping off of his left foot with the diabetic ulcer. Patient appears to be in very mild musculoskeletal distress. HEENT: Normocephalic atraumatic. CARDIOVASCULAR: Regular rate and rhythm with normal S1 and S2 without S3-S4 murmurs or rubs. 2 out 4 bilateral radial pulses. LUNGS: All avendaño clear to auscultation. ABDOMEN: Normal bowel sounds in all quadrants abdomen is soft and nontender. NEUROLOGICAL: Patient is alert and oriented 4. Speech is clear coherent and appropriate. Affect is slightly anxious but he is very pleasant and cooperative to staff. Patient able focus on and work hard in the activities as directed by therapy and nursing and is seen to be incorporating the recommendations into his techniques. Balance is good. Bilateral upper extremity and right lower extremity motor is good and patient is doing good job of monitoring and keeping off of his left lower extremity (foot). SKIN: No change. LABORATORY DATA: Reviewed. Please see below. MICROBIOLOGY: Please see below. IMAGING: No new. DVT prophylaxis ordered?: Patient continues on Xarelto. ASSESSMENT AND PLAN: 1. Rehabilitation of left foot ulcer secondary to diabetic polyneuropathy/ peripheral vascular disease: Patient as anticipated is doing a very good job of learning safe mobility with wheelchair walker and is advancing his transfers technique. Patient needs to also make improvements with ADLs which I did not observe him and OT today. Overall still anticipate patient progressing well enough to transition to home on Tuesday with home care: Nursing, PT and OT. 2. Diabetic ulcer: Patient seems to be responding to antibiotics and nutrition in that is hemoglobin and hematocrit are increasing/reducing his level of anemia. However he is also increasing his white count which I suspect is a sign of fighting infection along with the low-grade fevers he has been having the last 24 hours plus. We'll continue to monitor these and continue the IV Ancef. 3. Anemia: as noted above is improving. 4. Diabetes under good control at this time. TIME SPENT: Chart Review, examination and documentation greater than 25 minutes. Allergies Coded Allergies: No Known Allergies (Unverified , 02/06/17) Vital Signs Vital Signs Date Time Temp Pulse Resp B/P (MAP) Pulse Ox O2 Delivery O2 Flow Rate FiO2 02/22/17 09:04 75 138/66 02/22/17 09:03 18 02/22/17 06:00 100.0 92 Room Air Laboratory Data Labs 24H Laboratory Tests 2 02/21/17 16:37: Bedside Glucose (Misc Panel) 105 02/21/17 20:07: Bedside Glucose (Misc Panel) 154H 02/22/17 06:34: Bedside Glucose (Misc Panel) 95 02/22/17 11:28: Bedside Glucose (Misc Panel) 98 Microbiology Microbiology 02/20/17 Blood Culture - Preliminary, Resulted No growth after 24 hours . All specim... 02/20/17 Blood Culture - Preliminary, Resulted No growth after 24 hours . All specim... 02/18/17 Urine Culture - Final, Complete 02/20/17 Wound Culture - Final, Complete Current Medications Current Medications Current Medications Acetaminophen (Tylenol Tab) 650 mg Q4HP PRN PO MILD PAIN (PS 1-4) Last administered on 02/22/17 06:15; Start 02/18/17 at 13:30; Stop 03/20/17 at 13:29 Amlodipine Besylate (Norvasc) 5 mg DAILY PO Last administered on 02/22/17 09:03 ; Start 02/19/17 at 09:00; Stop 03/21/17 at 08:59 Atorvastatin Calcium (Lipitor) 20 mg QHS PO Last administered on 02/21/17 20:50 ; Start 02/18/17 at 21:00; Stop 03/20/17 at 20:59 Carvedilol (COReg) 12.5 mg BID PO Last administered on 02/22/17 09:04; Start at 21:00; Stop 03/20/17 at 20:59 Cefazolin Sodium/ Dextrose 2 gm/IV Miscellaneous Supplies 50 ml @ 75 mls/hr Q8H IV Last administered on 02/22/17 09:02; Start 02/18/17 at 16:00; Stop 02/25/17 at 15:59 Clopidogrel Bisulfate (PLAVix) 75 mg DAILY PO ; Start 02/19/17 at 09:00; Stop at 08:59; Status UNV Docusate Sodium (Colace) 100 mg BID PO Last administered on 02/22/17 09:04; Start 02/18/17 at 21:00; Stop 03/20/17 at 20:59 Gabapentin (Neurontin) 100 mg BID@0700,1300 PO Last administered on 02/22/17 12 :55; Start 02/19/17 at 07:00; Stop 03/21/17 at 06:59 Gabapentin (Neurontin) 200 mg QHS PO Last administered on 02/21/17 20:50; Start 02/18/17 at 21:00; Stop 03/20/17 at 20:59 Heparin Sodium (Heparin (Flush)) 200 units ASDIRECTED PRN IV SEE LABEL COMMENTS Last administered on 02/21/17 00:49; Start 02/18/17 at 18:30; Stop at 18:29 Heparin Sodium (Heparin (Flush)) 200 units PICC IV Last administered on 05:52; Start 02/19/17 at 06:00; Stop 03/21/17 at 05:59 Heparin Sodium (Porcine) (Heparin) 5,000 units RQ8H SC ; Start 02/18/17 at 16:00 ; Stop 02/23/17 at 15:59; Status UNV Home Med (Med Rec Complete!) ASDIRECTED XX ; Start 02/18/17 at 15:00; Stop at 15:14; Status DC Insulin Detemir (Levemir Insulin) 20 units QHS SC Last administered on 20:51; Start 02/18/17 at 21:00; Stop 03/20/17 at 20:59 Insulin Human Lispro (HumaLOG INSULIN) See Protocol Table AC SC Last administered on 02/21/17 17:37; Start 02/18/17 at 17:30; Stop 03/20/17 at 17:29 Insulin Human Lispro (HumaLOG INSULIN) See Protocol Table [facility] SC ; Start at 21:00; Stop 03/20/17 at 20:59 Insulin Human Regular (HumuLIN R INSULIN) Sliding Scale 0U for 0-1... SC ; Start 02/18/17 at 17:30; Stop 02/18/17 at 17:30; Status DC Insulin Human Regular (HumuLIN R INSULIN) Sliding Scale 0U for 0-1... [facility] SC ; Start 02/18/17 at 21:00; Stop 02/18/17 at 21:00; Status DC Lactobacillus Acidophilus (Bacid) 1 ea BID PO Last administered on 02/22/17 09: 02; Start 02/18/17 at 21:00; Stop 03/20/17 at 20:59 Lisinopril (Prinivil) 20 mg DAILY PO Last administered on 02/22/17 09:04; Start 02/19/17 at 09:00; Stop 03/21/17 at 08:59 Magnesium Hydroxide (Milk Of Magnesia) 30 ml DAILYPRN PRN PO CONSTIPATION; Start 02/18/17 at 13:30; Stop 03/20/17 at 13:29 Multivitamins (Theragram-M) 1 tab DAILY PO ; Start 02/19/17 at 09:00; Stop 02/19 at 09:00; Status DC Multivitamins (Theragram-M) 1 tab DAILY PO Last administered on 02/22/17 09:02 ; Start 02/19/17 at 09:00; Stop 03/21/17 at 08:59 Oxycodone HCl (OxyCONTIN) 10 mg BID PO Last administered on 02/22/17 09:03; Start 02/18/17 at 21:00; Stop 02/25/17 at 12:00 Oxycodone HCl (Roxicodone, Oxyir) 5 mg Q6HP PRN PO PAIN SCALE 6-10 Last administered on 02/20/17 11:31; Start 02/18/17 at 15:00; Stop 02/25/17 at 12:00 Pantoprazole Sodium (Protonix) 40 mg DAILY PO Last administered on 02/22/17 09: 03; Start 02/19/17 at 09:00; Stop 03/21/17 at 08:59 Patient Own Medication (Patient'S Own Med) 1 DROP QHS OU Last administered on 20:52; Start 02/19/17 at 21:00; Stop 03/21/17 at 20:59 Polyethylene Glycol (Miralax) 1 pkt DAILY PO Last administered on 02/20/17 08: 10; Start 02/18/17 at 09:00; Stop 03/20/17 at 08:59 Rivaroxaban (Xarelto) 15 mg BID@18 PO Last administered on 02/22/17 09:04; Start 02/18/17 at 18:00; Stop 03/09/17 at 12:00 Senna (Senokot) 2 tab BID PO Last administered on 02/21/17 20:50; Start at 21:00; Stop 03/20/17 at 20:59 Sodium Biphosphate/ Sodium Phosphate (Fleet Enema) 1 ea DAILYPRN PRN IN CONSTIPATION; Start 02/18/17 at 13:30; Stop 03/20/17 at 13:29 Sodium Hypochlorite (Dakin'S Solution) 1/2 strength flush... BID TOP Last administered on 02/22/17 09:05; Start 02/18/17 at 21:00; Stop 03/20/17 at 20:59 Sodium Chloride (Saline Lock Flush) 10 ML PICC IV Last administered on 05:52; Start 02/19/17 at 06:00; Stop 03/21/17 at 05:59 Sodium Chloride (Saline Lock Flush) 10ML ASDIRECTED PRN IV SEE LABEL COMMENTS Last administered on 02/21/17 00:49; Start 02/18/17 at 18:30; Stop 03/20/17 at 18:29 Thiamine HCl (Thiamine HCl) 100 mg DAILY PO Last administered on 02/22/17 09:02 ; Start 02/19/17 at 09:00; Stop 03/21/17 at 08:59 Timolol Maleate (Timoptic 0.5% Ophth Flora) 1 drop QAM OU Last administered on 09:05; Start 02/19/17 at 09:00; Stop 03/21/17 at 08:59 DEIRDRE VILLEGAS MD February 22, 2017 15:01
[2017-02-22 20:00] VITALS: BP 156/72
[2017-02-22] MEDS: ATORVASTATIN 20 MG TAB PO SCH (20:26)
[2017-02-22] MEDS: LEVEMIR (INSULIN DETEMIR) 1 UNITS/0.01ML SC SCH (20:26)
[2017-02-22] MEDS: LUMIGAN EYE DROPS (PATIENT'S OWN MED) OU SCH (20:27)
[2017-02-23] MEDS: GABAPENTIN 100 MG CAP PO SCH ×3 (05:58→21:52)
[2017-02-23] MEDS: SODIUM CHLORIDE 0.9% INJ 10 ML SYR IV SCH ×2 (05:58→18:00)
[2017-02-23 06:00] VITALS: BP 129/64
[2017-02-23 07:18] LABS: MEAN CORPUSCULAR HEMOGLOBIN 30.2 pg (27.0-33.0); MEAN CORPUSCULAR HGB CONC 33.2 g/dl (32.0-36.5); MEAN CORPUSCULAR VOLUME 91.2 fl (80.0-96.0); RED CELL DISTRIBUTION WIDTH 12.4 % (11.5-14.5)
[2017-02-23] MEDS: HumaLOG INSULIN (NovoLOG) PER UNIT SC SCH ×4 (07:30→21:00)
[2017-02-23 07:44] LABS: ANION GAP 6 MEQ/L (8-16); BLOOD UREA NITROGEN 22 MG/DL (7-18); CARBON DIOXIDE LEVEL 30 MEQ/L (21-32); CHLORIDE LEVEL 100 MEQ/L (98-107); CREATININE FOR GFR 1.24 MG/DL (0.70-1.30); GLOMERULAR FILTRATION RATE > 60.0 (>49); GLUCOSE, FASTING 72 MG/DL (80-110); POTASSIUM SERUM 3.8 MEQ/L (3.5-5.1); SODIUM LEVEL 136 MEQ/L (136-145)
[2017-02-23] MEDS: SODIUM CHLORIDE 0.9% INJ 10 ML SYR IV PRN (08:39)
[2017-02-23] MEDS: PANTOPRAZOLE 40MG TAB (PROTONIX) PO SCH (08:41)
[2017-02-23] MEDS: ACETAMINOPHEN TAB 650MG DOSE (2X325MG) PO PRN (08:41)
[2017-02-23] MEDS: MULTIVITAMINS/MINERALS THERAP 1 TAB PO SCH (08:42)
[2017-02-23] MEDS: RIVAROXABAN 15 MG TAB (XARELTO) PO SCH ×2 (08:42→17:48)
[2017-02-23] MEDS: LISINOPRIL 20 MG TAB PO SCH (08:44)
[2017-02-23] MEDS: THIAMINE 100 MG TAB PO SCH (08:44)
[2017-02-23] MEDS: oxyCODONE 10 MG CR TAB PO SCH ×2 (08:45→21:53)
[2017-02-23] MEDS: amLODIPine 5 MG TAB PO SCH (08:46)
[2017-02-23] MEDS: CARVedilol 12.5 MG TAB PO SCH ×2 (08:46→21:52)
[2017-02-23] MEDS: LACTOBACILLUS ACIDOPHILUS CAP (BACID) PO SCH ×2 (08:47→21:52)
[2017-02-23] MEDS: TIMOLOL MALEATE 0.5% OPHTH SOLN 5 ML OU SCH (08:47)
[2017-02-23] MEDS: SENNA 8.6 MG TAB (SENOKOT) PO SCH ×2 (08:50→21:51)
[2017-02-23] MEDS: DOCUSATE SODIUM 100 MG CAP PO SCH ×2 (08:50→21:51)
[2017-02-23] MEDS: DAKIN'S 0.25% HALF-STRENGTH SOLN 480 ML TOP SCH (08:51)
[2017-02-23] MEDS: MIRALAX *UNIT DOSE* 17GM PACKET PO SCH (09:00)
--- NOTE | 2017-02-23 13:03 | IPNPDOC ---
Engineering Production Liaison Progress Note DATE OF SERVICE: 02/23/17 DATE OF ADMISSION: Feb 18, 2017 at 13:39 INPATIENT REHABILITATION ADMISSION DAY: #5 SUBJECTIVE: Patient is a 61-year-old white male with diabetic left foot ulcer secondary to diabetic neuropathy and peripheral vascular disease. Patient notes that his pain trying about 4 out of 10 which is tolerable and denies any GI/, pulmonary or cardiac problems. ALLERGIES: See Below MEDICATIONS: Reviewed, see below. OBJECTIVE: VITAL SIGNS: Please see below. PHYSICAL EXAMINATION: GENERAL: Well-nourished well-developed middle-aged white male ambulating with a walker when see PT and earlier using manual wheelchair mobility doing fairly good at keeping off of his left foot with the diabetic ulcer. Patient appears to be in very mild musculoskeletal distress. HEENT: Normocephalic atraumatic. CARDIOVASCULAR: Regular rate and rhythm with normal S1 and S2 without S3-S4 murmurs or rubs. 2 out 4 bilateral radial pulses. LUNGS: All avendaño clear to auscultation. ABDOMEN: Normal bowel sounds in all quadrants abdomen is soft and nontender. NEUROLOGICAL: Patient is alert and oriented 4. Speech is clear coherent and appropriate. Affect is slightly anxious but he is very pleasant and cooperative to staff. Patient able focus on and work hard in the activities as directed by therapy and nursing and is seen to be incorporating the recommendations into his techniques. Balance is good. Bilateral upper extremity and right lower extremity motor is good and patient is doing good job of monitoring and keeping off of his left lower extremity (foot). SKIN: No change. LABORATORY DATA: Reviewed. Please see below. MICROBIOLOGY: Please see below. IMAGING: No new. DVT prophylaxis ordered?: Patient continues on Xarelto. ASSESSMENT AND PLAN: 1. Rehabilitation of left foot ulcer secondary to diabetic polyneuropathy/ peripheral vascular disease: Patient as anticipated is doing a very good job of learning safe mobility with wheelchair, walker, crutches and is advancing his transfers technique. He did 4 stairs in PT today with rail and one crutch. Overall still anticipate patient progressing well enough to transition to home on Tuesday with home care: Nursing, PT and OT. 2. Diabetic ulcer: Little drainage and wound culture was negative along with Blood cultures times 2. Patient has had good AC and QHS Blood Sugars except for lows (60s) on 02/20 that he did not feel or notice. I will recommend patient's PCP consult Endocrine to optimize home management program as diet/Metformin and low levels of insulin with meals is usually keeping Blood sugars in the 70 to 130 range. IV Ancef till early March. TIME SPENT: Chart Review, examination and documentation greater than 25 minutes. Allergies Coded Allergies: No Known Allergies (Unverified , 02/06/17) Vital Signs Vital Signs Date Time Temp Pulse Resp B/P (MAP) Pulse Ox O2 Delivery O2 Flow Rate FiO2 02/23/17 08:46 76 02/23/17 08:45 18 02/23/17 08:44 148/70 02/23/17 06:00 100.1 93 Room Air Laboratory Data CBC/BMP Laboratory Tests 02/23/17 07:01 Red Blood Count 2.91 L, Mean Corpuscular Volume 91.2, Mean Corpuscular Hemoglobin 30.2, Mean Corpuscular Hemoglobin Concent 33.2, Red Cell Distribution Width 12.4, Calcium Level 8.0 L Labs 24H Laboratory Tests 2 02/22/17 16:32: Bedside Glucose (Misc Panel) 156H 02/22/17 19:48: Bedside Glucose (Misc Panel) 175H 02/23/17 06:51: Bedside Glucose (Misc Panel) 82 02/23/17 07:01: Anion Gap 6L, Glomerular Filtration Rate > 60.0, Blood Urea Nitrogen 22H, Creatinine 1.24, Sodium Level 136, Potassium Level 3.8, Chloride Level 100, Carbon Dioxide Level 30, Calcium Level 8.0L 02/23/17 12:04: Bedside Glucose (Misc Panel) 89 Microbiology Microbiology 02/20/17 Blood Culture - Preliminary, Resulted No Growth after 48 hours. All Specime... 02/20/17 Blood Culture - Preliminary, Resulted No Growth after 48 hours. All Specime... 02/18/17 Urine Culture - Final, Complete 02/20/17 Wound Culture - Final, Complete Current Medications Current Medications Current Medications Acetaminophen (Tylenol Tab) 650 mg Q4HP PRN PO MILD PAIN (PS 1-4) Last administered on 02/23/17 08:41; Start 02/18/17 at 13:30; Stop 03/20/17 at 13:29 Amlodipine Besylate (Norvasc) 5 mg DAILY PO Last administered on 02/23/17 08:46 ; Start 02/19/17 at 09:00; Stop 03/21/17 at 08:59 Atorvastatin Calcium (Lipitor) 20 mg QHS PO Last administered on 02/22/17 20:26 ; Start 02/18/17 at 21:00; Stop 03/20/17 at 20:59 Carvedilol (COReg) 12.5 mg BID PO Last administered on 02/23/17 08:46; Start at 21:00; Stop 03/20/17 at 20:59 Cefazolin Sodium 2 gm/Dextrose 50 ml @ 75 mls/hr Q8H IV ; Start 02/23/17 at 16:00 ; Stop 03/02/17 at 15:59 Cefazolin Sodium/ Dextrose 2 gm/IV Miscellaneous Supplies 50 ml @ 75 mls/hr Q8H IV Last administered on 02/23/17 08:40; Start 02/18/17 at 16:00; Stop 02/23/17 at 09:01; Status DC Clopidogrel Bisulfate (PLAVix) 75 mg DAILY PO ; Start 02/19/17 at 09:00; Stop at 08:59; Status UNV Docusate Sodium (Colace) 100 mg BID PO Last administered on 02/23/17 08:50; Start 02/18/17 at 21:00; Stop 03/20/17 at 20:59 Gabapentin (Neurontin) 100 mg BID@0700,1300 PO Last administered on 02/23/17 05 :58; Start 02/19/17 at 07:00; Stop 03/21/17 at 06:59 Gabapentin (Neurontin) 200 mg QHS PO Last administered on 02/22/17 20:26; Start 02/18/17 at 21:00; Stop 03/20/17 at 20:59 Heparin Sodium (Heparin (Flush)) 200 units ASDIRECTED PRN IV SEE LABEL COMMENTS Last administered on 02/21/17 00:49; Start 02/18/17 at 18:30; Stop at 18:29 Heparin Sodium (Heparin (Flush)) 200 units PICC IV Last administered on 05:58; Start 02/19/17 at 06:00; Stop 03/21/17 at 05:59 Heparin Sodium (Porcine) (Heparin) 5,000 units RQ8H SC ; Start 02/18/17 at 16:00 ; Stop 02/23/17 at 15:59; Status UNV Home Med (Med Rec Complete!) ASDIRECTED XX ; Start 02/18/17 at 15:00; Stop at 15:14; Status DC Insulin Detemir (Levemir Insulin) 20 units QHS SC Last administered on 20:26; Start 02/18/17 at 21:00; Stop 03/20/17 at 20:59 Insulin Human Lispro (HumaLOG INSULIN) See Protocol Table AC SC Last administered on 02/22/17 17:43; Start 02/18/17 at 17:30; Stop 03/20/17 at 17:29 Insulin Human Lispro (HumaLOG INSULIN) See Protocol Table QHS SC ; Start at 21:00; Stop 03/20/17 at 20:59 Insulin Human Regular (HumuLIN R INSULIN) Sliding Scale 0U for 0-1... AC SC ; Start 02/18/17 at 17:30; Stop 02/18/17 at 17:30; Status DC Insulin Human Regular (HumuLIN R INSULIN) Sliding Scale 0U for 0-1... QHS SC ; Start 02/18/17 at 21:00; Stop 02/18/17 at 21:00; Status DC Lactobacillus Acidophilus (Bacid) 1 ea BID PO Last administered on 02/23/17 08: 47; Start 02/18/17 at 21:00; Stop 03/20/17 at 20:59 Lisinopril (Prinivil) 20 mg DAILY PO Last administered on 02/23/17 08:44; Start 02/19/17 at 09:00; Stop 03/21/17 at 08:59 Magnesium Hydroxide (Milk Of Magnesia) 30 ml DAILYPRN PRN PO CONSTIPATION; Start 02/18/17 at 13:30; Stop 03/20/17 at 13:29 Multivitamins (Theragram-M) 1 tab DAILY PO ; Start 02/19/17 at 09:00; Stop 02/19 at 09:00; Status DC Multivitamins (Theragram-M) 1 tab DAILY PO Last administered on 02/23/17 08:42 ; Start 02/19/17 at 09:00; Stop 03/21/17 at 08:59 Oxycodone HCl (OxyCONTIN) 10 mg BID PO Last administered on 02/23/17 08:45; Start 02/18/17 at 21:00; Stop 02/25/17 at 12:00 Oxycodone HCl (Roxicodone, Oxyir) 5 mg Q6HP PRN PO PAIN SCALE 6-10 Last administered on 02/20/17 11:31; Start 02/18/17 at 15:00; Stop 02/25/17 at 12:00 Pantoprazole Sodium (Protonix) 40 mg DAILY PO Last administered on 02/23/17 08: 41; Start 02/19/17 at 09:00; Stop 03/21/17 at 08:59 Patient Own Medication (Patient'S Own Med) 1 DROP QHS OU Last administered on 20:27; Start 02/19/17 at 21:00; Stop 03/21/17 at 20:59 Polyethylene Glycol (Miralax) 1 pkt DAILY PO Last administered on 02/20/17 08: 10; Start 02/18/17 at 09:00; Stop 03/20/17 at 08:59 Rivaroxaban (Xarelto) 15 mg BID@,18 PO Last administered on 02/23/17 08:42; Start 02/18/17 at 18:00; Stop 03/09/17 at 12:00 Senna (Senokot) 2 tab BID PO Last administered on 02/23/17 08:50; Start at 21:00; Stop 03/20/17 at 20:59 Sodium Biphosphate/ Sodium Phosphate (Fleet Enema) 1 ea DAILYPRN PRN [place] CONSTIPATION; Start 02/18/17 at 13:30; Stop 03/20/17 at 13:29 Sodium Hypochlorite (Dakin'S Solution) 1/2 strength flush... BID TOP Last administered on 02/23/17 08:51; Start 02/18/17 at 21:00; Stop 03/20/17 at 20:59 Sodium Chloride (Saline Lock Flush) 10 ML PICC IV Last administered on 05:58; Start 02/19/17 at 06:00; Stop 03/21/17 at 05:59 Sodium Chloride (Saline Lock Flush) 10ML ASDIRECTED PRN IV SEE LABEL COMMENTS Last administered on 02/23/17 08:39; Start 02/18/17 at 18:30; Stop 03/20/17 at 18:29 Thiamine HCl (Thiamine HCl) 100 mg DAILY PO Last administered on 02/23/17 08:44 ; Start 02/19/17 at 09:00; Stop 03/21/17 at 08:59 Timolol Maleate (Timoptic 0.5% Ophth Flora) 1 drop QAM OU Last administered on 08:47; Start 02/19/17 at 09:00; Stop 03/21/17 at 08:59 DEIRDRE VILLEGAS MD February 23, 2017 13:03
[2017-02-23 14:27] VITALS: BP 129/63
[2017-02-23] MEDS: LUMIGAN EYE DROPS (PATIENT'S OWN MED) OU SCH (21:00)
[2017-02-23 21:30] VITALS: BP 143/70
[2017-02-23] MEDS: ATORVASTATIN 20 MG TAB PO SCH (21:51)
[2017-02-23] MEDS: LEVEMIR (INSULIN DETEMIR) 1 UNITS/0.01ML SC SCH (21:51)
[2017-02-24] MEDS: SODIUM CHLORIDE 0.9% INJ 10 ML SYR IV PRN ×2 (01:08→09:46)
[2017-02-24 06:00] VITALS: BP 151/71
[2017-02-24] MEDS: SODIUM CHLORIDE 0.9% INJ 10 ML SYR IV SCH ×2 (06:14→17:47)
[2017-02-24] MEDS: GABAPENTIN 100 MG CAP PO SCH ×3 (06:14→21:40)
[2017-02-24] MEDS: HumaLOG INSULIN (NovoLOG) PER UNIT SC SCH ×4 (07:30→21:00)
[2017-02-24] MEDS: MULTIVITAMINS/MINERALS THERAP 1 TAB PO SCH (08:49)
[2017-02-24] MEDS: amLODIPine 5 MG TAB PO SCH (08:49)
[2017-02-24] MEDS: RIVAROXABAN 15 MG TAB (XARELTO) PO SCH ×2 (08:49→17:44)
[2017-02-24] MEDS: oxyCODONE 10 MG CR TAB PO SCH ×2 (08:49→21:41)
[2017-02-24] MEDS: DOCUSATE SODIUM 100 MG CAP PO SCH ×2 (08:49→21:39)
[2017-02-24] MEDS: LACTOBACILLUS ACIDOPHILUS CAP (BACID) PO SCH ×2 (08:49→21:40)
[2017-02-24] MEDS: THIAMINE 100 MG TAB PO SCH (08:50)
[2017-02-24] MEDS: PANTOPRAZOLE 40MG TAB (PROTONIX) PO SCH (08:50)
[2017-02-24] MEDS: LISINOPRIL 20 MG TAB PO SCH (08:50)
[2017-02-24] MEDS: SENNA 8.6 MG TAB (SENOKOT) PO SCH ×2 (08:50→21:40)
[2017-02-24] MEDS: MIRALAX *UNIT DOSE* 17GM PACKET PO SCH (08:51)
[2017-02-24] MEDS: CARVedilol 12.5 MG TAB PO SCH ×2 (08:51→21:40)
[2017-02-24] MEDS: TIMOLOL MALEATE 0.5% OPHTH SOLN 5 ML OU SCH (08:56)
[2017-02-24 14:00] VITALS: BP 127/61
--- NOTE | 2017-02-24 15:17 | IPNPDOC ---
Practice Representative Progress Note DATE OF SERVICE: 02/24/17 DATE OF ADMISSION: Feb 18, 2017 at 13:39 INPATIENT REHABILITATION ADMISSION DAY: #6 SUBJECTIVE: Patient is a 61-year-old white male with diabetic left foot ulcer secondary to diabetic neuropathy and peripheral vascular disease. Patient notes that his pain trying about 4 out of 10 which is tolerable and denies any GI/, pulmonary or cardiac problems. ALLERGIES: See Below MEDICATIONS: Reviewed, see below. OBJECTIVE: VITAL SIGNS: Please see below. PHYSICAL EXAMINATION: GENERAL: Well-nourished well-developed middle-aged white male ambulating with a walker when see PT doing fairly good at keeping off of his left foot with the diabetic ulcer including stairs. Patient appears to be in very mild musculoskeletal distress. HEENT: Normocephalic atraumatic. CARDIOVASCULAR: Regular rate and rhythm with normal S1 and S2 without S3-S4 murmurs or rubs. 2 out 4 bilateral radial pulses. LUNGS: All avendaño clear to auscultation. ABDOMEN: Normal bowel sounds in all quadrants abdomen is soft and nontender. NEUROLOGICAL: Patient is alert and oriented 4. Speech is clear coherent and appropriate. Affect is slightly anxious but he is very pleasant and cooperative to staff. Patient able focus on and work hard in the activities as directed by therapy and nursing and is seen to be incorporating the recommendations into his techniques. Balance is good. Bilateral upper extremity and right lower extremity motor is good and patient is doing good job of monitoring and keeping off of his left lower extremity (foot). SKIN: Very mild erythema and serosanguineous drainage at popliteal surgery incision, but no older or purulence seen at this time. No appreciable drainage from the left foot ulcer. Femoral artery site healing very well again without a inflammation signs. LABORATORY DATA: Reviewed. Please see below. MICROBIOLOGY: Please see below. IMAGING: No new. DVT prophylaxis ordered?: Patient continues on Xarelto. ASSESSMENT AND PLAN: 1. Rehabilitation of left foot ulcer secondary to diabetic polyneuropathy/ peripheral vascular disease: Patient as anticipated is doing a very good job of learning safe mobility with wheelchair, walker, crutches and is advancing his transfers technique. He did 4 stairs in PT today with rail and one crutch. Overall, after reviewing patient team has need for infusion of Ancef Q8hrs, family training and wound care with home care: Nursing, PT and OT safe discharge to home is not felt to be practical by Tuesday. Therefore, we will focus on getting in for family training on ADLs/Transfers/Mobility, along with wound dressing and trial/training on car transfers. 2. Diabetic ulcer: Little drainage and wound culture was negative along with Blood cultures times 2. Patient has had good AC and QHS Blood Sugars. I will recommend patient's PCP consult Endocrine to optimize home management program as diet/Metformin and low levels of insulin with meals is usually keeping Blood sugars in the 70 to 130 range. IV Ancef till early March.(03/25/17) I will consult Dr. Trivedi/Wound Cllinic and Dr. Perez for ID for following and managing wounds and antibiotics in the outpatient environment after discussing it with the team and the patient. TIME SPENT: Chart Review, examination and documentation >35 minutes. Allergies Coded Allergies: No Known Allergies (Unverified , 02/06/17) Vital Signs Vital Signs Date Time Temp Pulse Resp B/P (MAP) Pulse Ox O2 Delivery O2 Flow Rate FiO2 02/24/17 14:00 98.7 75 18 127/61 (83) 95 Room Air Laboratory Data Labs 24H Laboratory Tests 2 02/23/17 16:47: Bedside Glucose (Misc Panel) 99 02/23/17 20:23: Bedside Glucose (Misc Panel) 191H 02/24/17 06:36: Bedside Glucose (Misc Panel) 72L 02/24/17 11:26: Bedside Glucose (Misc Panel) 81 Microbiology Microbiology 02/20/17 Blood Culture - Preliminary, Resulted No Growth after 72 hours. All specime... 02/20/17 Blood Culture - Preliminary, Resulted No Growth after 72 hours. All specime... 02/18/17 Urine Culture - Final, Complete 02/20/17 Wound Culture - Final, Complete Current Medications Current Medications Current Medications Acetaminophen (Tylenol Tab) 650 mg Q4HP PRN PO MILD PAIN (PS 1-4) Last administered on 02/23/17 08:41; Start 02/18/17 at 13:30; Stop 03/20/17 at 13:29 Amlodipine Besylate (Norvasc) 5 mg DAILY PO Last administered on 02/24/17 08:49 ; Start 02/19/17 at 09:00; Stop 03/21/17 at 08:59 Atorvastatin Calcium (Lipitor) 20 mg QHS PO Last administered on 02/23/17 21:51 ; Start 02/18/17 at 21:00; Stop 03/20/17 at 20:59 Carvedilol (COReg) 12.5 mg BID PO Last administered on 02/24/17 08:51; Start at 21:00; Stop 03/20/17 at 20:59 Cefazolin Sodium 2 gm/Dextrose 50 ml @ 75 mls/hr Q8H IV Last administered on 08:48; Start 02/23/17 at 16:00; Stop 03/02/17 at 15:59 Cefazolin Sodium/ Dextrose 2 gm/IV Miscellaneous Supplies 50 ml @ 75 mls/hr Q8H IV Last administered on 02/23/17 08:40; Start 02/18/17 at 16:00; Stop 02/23/17 at 09:01; Status DC Clopidogrel Bisulfate (PLAVix) 75 mg DAILY PO ; Start 02/19/17 at 09:00; Stop at 08:59; Status UNV Docusate Sodium (Colace) 100 mg BID PO Last administered on 02/24/17 08:49; Start 02/18/17 at 21:00; Stop 03/20/17 at 20:59 Gabapentin (Neurontin) 100 mg BID@0700,1300 PO Last administered on 02/24/17 12 :59; Start 02/19/17 at 07:00; Stop 03/21/17 at 06:59 Gabapentin (Neurontin) 200 mg QHS PO Last administered on 02/23/17 21:52; Start 02/18/17 at 21:00; Stop 03/20/17 at 20:59 Heparin Sodium (Heparin (Flush)) 200 units ASDIRECTED PRN IV SEE LABEL COMMENTS Last administered on 02/24/17 09:46; Start 02/18/17 at 18:30; Stop at 18:29 Heparin Sodium (Heparin (Flush)) 200 units PICC IV Last administered on 06:14; Start 02/19/17 at 06:00; Stop 03/21/17 at 05:59 Heparin Sodium (Porcine) (Heparin) 5,000 units RQ8H SC ; Start 02/18/17 at 16:00 ; Stop 02/23/17 at 15:59; Status UNV Home Med (Med Rec Complete!) ASDIRECTED XX ; Start 02/18/17 at 15:00; Stop at 15:14; Status DC Insulin Detemir (Levemir Insulin) 20 units QHS SC Last administered on 21:51; Start 02/18/17 at 21:00; Stop 03/20/17 at 20:59 Insulin Human Lispro (HumaLOG INSULIN) See Protocol Table AC SC Last administered on 02/22/17 17:43; Start 02/18/17 at 17:30; Stop 03/20/17 at 17:29 Insulin Human Lispro (HumaLOG INSULIN) See Protocol Table QHS SC ; Start at 21:00; Stop 03/20/17 at 20:59 Insulin Human Regular (HumuLIN R INSULIN) Sliding Scale 0U for 0-1... AC SC ; Start 02/18/17 at 17:30; Stop 02/18/17 at 17:30; Status DC Insulin Human Regular (HumuLIN R INSULIN) Sliding Scale 0U for 0-1... QHS SC ; Start 02/18/17 at 21:00; Stop 02/18/17 at 21:00; Status DC Lactobacillus Acidophilus (Bacid) 1 ea BID PO Last administered on 02/24/17 08: 49; Start 02/18/17 at 21:00; Stop 03/20/17 at 20:59 Lisinopril (Prinivil) 20 mg DAILY PO Last administered on 02/24/17 08:50; Start 02/19/17 at 09:00; Stop 03/21/17 at 08:59 Magnesium Hydroxide (Milk Of Magnesia) 30 ml DAILYPRN PRN PO CONSTIPATION; Start 02/18/17 at 13:30; Stop 03/20/17 at 13:29 Multivitamins (Theragram-M) 1 tab DAILY PO ; Start 02/19/17 at 09:00; Stop 02/19 at 09:00; Status DC Multivitamins (Theragram-M) 1 tab DAILY PO Last administered on 02/24/17 08:49 ; Start 02/19/17 at 09:00; Stop 03/21/17 at 08:59 Oxycodone HCl (OxyCONTIN) 10 mg BID PO Last administered on 02/24/17 08:49; Start 02/18/17 at 21:00; Stop 02/25/17 at 12:00 Oxycodone HCl (Roxicodone, Oxyir) 5 mg Q6HP PRN PO PAIN SCALE 6-10 Last administered on 02/20/17 11:31; Start 02/18/17 at 15:00; Stop 02/25/17 at 12:00 Pantoprazole Sodium (Protonix) 40 mg DAILY PO Last administered on 02/24/17 08: 50; Start 02/19/17 at 09:00; Stop 03/21/17 at 08:59 Patient Own Medication (Patient'S Own Med) 1 DROP QHS OU Last administered on 21:00; Start 02/19/17 at 21:00; Stop 03/21/17 at 20:59 Polyethylene Glycol (Miralax) 1 pkt DAILY PO Last administered on 02/20/17 08: 10; Start 02/18/17 at 09:00; Stop 03/20/17 at 08:59 Rivaroxaban (Xarelto) 15 mg BID@,18 PO Last administered on 02/24/17 08:49; Start 02/18/17 at 18:00; Stop 03/09/17 at 12:00 Senna (Senokot) 2 tab BID PO Last administered on 02/24/17 08:50; Start at 21:00; Stop 03/20/17 at 20:59 Sodium Biphosphate/ Sodium Phosphate (Fleet Enema) 1 ea DAILYPRN PRN [place] CONSTIPATION; Start 02/18/17 at 13:30; Stop 03/20/17 at 13:29 Sodium Hypochlorite (Dakin'S Solution) 1/2 strength flush... BID TOP Last administered on 02/23/17 08:51; Start 02/18/17 at 21:00; Stop 02/23/17 at 15:31; Status DC Sodium Chloride (Saline Lock Flush) 10 ML PICC IV Last administered on 06:14; Start 02/19/17 at 06:00; Stop 03/21/17 at 05:59 Sodium Chloride (Saline Lock Flush) 10ML ASDIRECTED PRN IV SEE LABEL COMMENTS Last administered on 02/24/17 09:46; Start 02/18/17 at 18:30; Stop 03/20/17 at 18:29 Thiamine HCl (Thiamine HCl) 100 mg DAILY PO Last administered on 02/24/17 08:50 ; Start 02/19/17 at 09:00; Stop 03/21/17 at 08:59 Timolol Maleate (Timoptic 0.5% Ophth Flora) 1 drop QAM OU Last administered on 08:56; Start 02/19/17 at 09:00; Stop 03/21/17 at 08:59 DEIRDRE VILLEGAS MD February 24, 2017 15:17
[2017-02-24] MEDS: SANTYL OINT 30GM TOP SCH (18:00)
[2017-02-24] MEDS: AQUAPHOR **100GM** OINT TOP SCH (18:00)
[2017-02-24 21:00] VITALS: BP 144/69
[2017-02-24] MEDS: LUMIGAN EYE DROPS (PATIENT'S OWN MED) OU SCH (21:00)
--- NOTE | 2017-02-24 21:24 | CR ---
DATE OF CONSULTATION: 02/24/2017 TELEMEDICINE CONSULT This is regarding a left diabetic foot wound, Hernandez grade 3. HISTORY OF PRESENT ILLNESS: Obtained from patient's admission record and discussion via telemedicine with the patient and Dr. Miguel Rivera, who was present in the patient's room. 61-year-old male, recently diagnosed with diabetes, who appears older than his stated age, was operated on in [place] for limb salvage involving a left diabetic foot wound. This required a left femoral-popliteal artery bypass, which was performed on 02/10/2017. The diabetic foot wound which was exacerbated by peripheral vascular disease stabilized, and the patient was discharged to [facility] for rehabilitation. The patient has multiple comorbidities including advanced renal disease secondary to his diabetes, diabetic neuropathy and recently diagnosed right deep venous thrombosis for which he is undergoing anticoagulation therapy. Original wound cultures showed Staphylococcus aureus and Strep anginosus, both of which were sensitive to cefazolin for which the patient was treated. Further workup revealed osteomyelitis involving the left mid foot. The patient will obtain a peripherally inserted central catheter (PICC) line for 6- 8 weeks of intravenous (IV) antibiotic therapy to treat the osteomyelitis. Ancef was prescribed. Originally the wound was treated with half strength Dakin's solution and a wet to dry dressing. The left femoral-popliteal artery bypass is patent, the inguinal incision appears clean and has healed. The popliteal incision located on the medial infrapopliteal area shows mild erythema with an isolated small blister formation. There is serous fluid within the blister which measures less than 1.0 cm x 1.0 cm and is located just off the incision line. There is no wound dehiscence present and no purulent drainage or signs of graft infection. The left foot on the medial midfoot area shows a wound measuring 5.0 cm x 2.0 cm with a wound depth of 0.5 cm. This wound base shows granulation tissue with isolated areas of epithelialization covered by fibrin slough. There is no bone, tendon or fascia exposed on visual exam. The patient does have sensation, and the wound is mildly tender to palpation. Wound edges are fixed without tunneling or undermining and the periwound shows no erythema, maceration or ischemic change. The patient's vital signs are stable with a low grade temperature of 100.2. Hemoglobin A1c is10. Wound care should include discontinuation of Dakin's solution, which is satisfactory for an initial treatment of necrotic tissue but should not be continued more than 3-4 days of which the patient has had. Wet-to-dry dressings should also be discontinued and replaced with a foam dressing to encourage moist wound care. The treatment will be Vashe, wound cleanser applied to the wound for 10 minutes, and then placing Santyl, a collagenase enzyme debrider on the wound base a nickel thick and then covering the wound with a foam dressing. This should be done on a daily basis. Vashe can also be used on the distal bypass incision, and this area should be covered with a foam dressing. The patient will have a PICC line and IV antibiotics will be initiated to treat his osteomyelitis. As this is a Hernandez grade 3 diabetic foot wound, hyperbaric oxygen therapy is indicated to improve oxygenation to the wound, which is hypoxic by nature. Hyperbaric oxygen (HBO) therapy will also potentiate his antibiotic therapy, will increase wound macrophage activity and induce wound neovascularization. Treatment for a Hernandez grade 3 diabetic foot wound associated with osteomyelitis would be 90-minute sessions 5 days a week at 2 TIMO for a total of 40 treatments. This would be performed on a daily basis 5 days per week. The patient would be periodically evaluated once a week for wound debridement and to assess the wound. The patient's nutritional status appears satisfactory; however, this should be supplemented with Hosea, an amino acid supplement, and Glucerna for added protein to improve wound healing. With further evaluation of the wound, additional wound treatment modalities can be considered. The patient will be scheduled at the wound clinic for wound care evaluation and followup and to orient him for HBO therapy. Thank you for this consultation. TONY
[2017-02-24] MEDS: ATORVASTATIN 20 MG TAB PO SCH (21:40)
[2017-02-24] MEDS: LEVEMIR (INSULIN DETEMIR) 1 UNITS/0.01ML SC SCH (21:41)
[2017-02-25] MEDS: SODIUM CHLORIDE 0.9% INJ 10 ML SYR IV PRN (00:38)
[2017-02-25 02:00] VITALS: BP 160/72
[2017-02-25 06:00] VITALS: BP 162/77
[2017-02-25] MEDS: GABAPENTIN 100 MG CAP PO SCH ×3 (06:24→22:11)
[2017-02-25] MEDS: SODIUM CHLORIDE 0.9% INJ 10 ML SYR IV SCH ×2 (06:24→17:48)
[2017-02-25] MEDS: HumaLOG INSULIN (NovoLOG) PER UNIT SC SCH ×4 (06:50→21:00)
[2017-02-25] MEDS: TIMOLOL MALEATE 0.5% OPHTH SOLN 5 ML OU SCH (09:00)
[2017-02-25] MEDS: LACTOBACILLUS ACIDOPHILUS CAP (BACID) PO SCH ×2 (09:19→22:09)
[2017-02-25] MEDS: RIVAROXABAN 15 MG TAB (XARELTO) PO SCH ×2 (09:19→17:47)
[2017-02-25] MEDS: MIRALAX *UNIT DOSE* 17GM PACKET PO SCH (09:19)
[2017-02-25] MEDS: MULTIVITAMINS/MINERALS THERAP 1 TAB PO SCH (09:20)
[2017-02-25] MEDS: DOCUSATE SODIUM 100 MG CAP PO SCH ×2 (09:20→22:11)
[2017-02-25] MEDS: THIAMINE 100 MG TAB PO SCH (09:20)
[2017-02-25] MEDS: oxyCODONE 10 MG CR TAB PO SCH (09:20)
[2017-02-25] MEDS: PANTOPRAZOLE 40MG TAB (PROTONIX) PO SCH (09:20)
[2017-02-25] MEDS: SENNA 8.6 MG TAB (SENOKOT) PO SCH ×2 (09:20→22:11)
[2017-02-25] MEDS: CARVedilol 12.5 MG TAB PO SCH ×2 (09:23→22:10)
[2017-02-25] MEDS: amLODIPine 5 MG TAB PO SCH (09:23)
[2017-02-25] MEDS: LISINOPRIL 20 MG TAB PO SCH (09:23)
[2017-02-25] MEDS: AQUAPHOR **100GM** OINT TOP SCH (09:24)
[2017-02-25] MEDS: SANTYL OINT 30GM TOP SCH (09:24)
--- NOTE | 2017-02-25 13:05 | IPNPDOC ---
[facility] Coordinator Progress Note DATE OF SERVICE: 02/25/17 DATE OF ADMISSION: Feb 18, 2017 at 13:39 INPATIENT REHABILITATION ADMISSION DAY: #7 SUBJECTIVE: Patient is a 61-year-old white male with left diabetic foot ulcers secondary to diabetic polyneuropathy and peripheral vascular disease. Patient is somewhat frustrated by not being able go home today. However we were able to yet some good family training in today. Additional training and having the get the home ready for patient's return to improve safety. Also patient be evaluated by Dr. Dave Perez to assess current antibiotic regimen and take over ID management of the infected foot. Dr. Trivedi's consultation last night is also appreciated and will help get patient set up for community care on the foot and hyperbaric oxygen. Patient without complaints of fever, chills, pain or GI symptoms. ALLERGIES: See Below MEDICATIONS: Reviewed, see below. OBJECTIVE: VITAL SIGNS: Please see below. PHYSICAL EXAMINATION: GENERAL: Well-nourished well-developed middle-aged white male who is alert and oriented 4. Speech is clear coherent and appropriate. Affect shows a low frustration but he is pleasant and cooperative with staff. Patient is in very mild musculoskeletal distress in the left lower extremity. HEENT: Normocephalic/atraumatic. CARDIOVASCULAR: Regular rate and rhythm with normal S1 and S2 with good color and warmth to all extremities and 2/4 radial pulses and palpable dorsalis pedis pulse. LUNGS: All avendaño clear to auscultation. ABDOMEN: Benign with normal bowel sounds in all quadrants. NEUROLOGICAL: Motor intact in bilateral upper and lower extremities with some guarding of the left lower extremity and some distal decrease in light touch in the feet and ankles. SKIN: Left foot arch with an oval ulcer approximately 3.5 x 1.5 centimeters without drainage or significant surrounding erythema. Left calf with popliteal incision line from the femoropopliteal small blister triangular in shape about 1.4 x 0.7 cm but no drainage or significant erythema around the wound. Left groin popliteal incision healing well drainage or inflammation. LABORATORY DATA: Reviewed. Please see below. MICROBIOLOGY: Please see below. IMAGING: No new imaging. DVT prophylaxis ordered?: Patient continues on Xarelto. ASSESSMENT AND PLAN: 1. Rehabilitation left diabetic foot ulcer with type 2 diabetes, peripheral vascular disease/polyneuropathy : Patient continuing to do well with training still can benefit from endurance but main point of care at this time is gaining family training and home environment ready for patient to return. This includes home infusion. The family training and home care goal should be reached on Tuesday . 2. Anemia: Will recheck CBC this weekend and watch for any further rise in white blood count. 3. Diabetes mellitus type 2: Patient has a fear of needles which makes fingersticks and self injection potentially difficult. Fortunately patient has been running consistently in the 80-200 range. Therefore he will probably not need insulin when he goes home but to watch his diet and continue with his other medications. TIME SPENT: Chart Review, examination and documentation greater than 25 minutes. Allergies Coded Allergies: No Known Allergies (Unverified , 02/06/17) Vital Signs Vital Signs Date Time Temp Pulse Resp B/P (MAP) Pulse Ox O2 Delivery O2 Flow Rate FiO2 02/25/17 09:23 66 02/25/17 09:23 156/74 02/25/17 09:20 18 02/25/17 06:00 99.0 94 Room Air Laboratory Data Labs 24H Laboratory Tests 2 02/24/17 16:45: Bedside Glucose (Misc Panel) 135H 02/24/17 21:28: Bedside Glucose (Misc Panel) 167H 02/25/17 06:43: Bedside Glucose (Misc Panel) 80 02/25/17 11:23: C-Reactive Protein, Quantitative 7.21H 02/25/17 11:31: Bedside Glucose (Misc Panel) 67L Microbiology Microbiology 02/20/17 Blood Culture - Preliminary, Resulted No Growth after 72 hours. All specime... 02/20/17 Blood Culture - Preliminary, Resulted No Growth after 72 hours. All specime... 02/18/17 Urine Culture - Final, Complete 02/20/17 Wound Culture - Final, Complete Current Medications Current Medications Current Medications Acetaminophen (Tylenol Tab) 650 mg Q4HP PRN PO MILD PAIN (PS 1-4) Last administered on 02/23/17 08:41; Start 02/18/17 at 13:30; Stop 03/20/17 at 13:29 Amlodipine Besylate (Norvasc) 5 mg DAILY PO Last administered on 02/25/17 09:23 ; Start 02/19/17 at 09:00; Stop 03/21/17 at 08:59 Atorvastatin Calcium (Lipitor) 20 mg QHS PO Last administered on 02/24/17 21:40 ; Start 02/18/17 at 21:00; Stop 03/20/17 at 20:59 Carvedilol (COReg) 12.5 mg BID PO Last administered on 02/25/17 09:23; Start at 21:00; Stop 03/20/17 at 20:59 Cefazolin Sodium 2 gm/Dextrose 50 ml @ 75 mls/hr Q8H IV Last administered on 09:19; Start 02/23/17 at 16:00; Stop 03/02/17 at 15:59 Cefazolin Sodium/ Dextrose 2 gm/IV Miscellaneous Supplies 50 ml @ 75 mls/hr Q8H IV Last administered on 02/23/17 08:40; Start 02/18/17 at 16:00; Stop 02/23/17 at 09:01; Status DC Clopidogrel Bisulfate (PLAVix) 75 mg DAILY PO ; Start 02/19/17 at 09:00; Stop at 08:59; Status UNV Collagenase (Santyl) 1 dose DAILY TOP Last administered on 02/25/17 09:24; Start 02/24/17 at 09:00; Stop 03/26/17 at 08:59 Docusate Sodium (Colace) 100 mg BID PO Last administered on 02/25/17 09:20; Start 02/18/17 at 21:00; Stop 03/20/17 at 20:59 Emollient Ointment (Aquaphor) 1 dose DAILY TOP Last administered on 02/25/17 09 :24; Start 02/24/17 at 09:00; Stop 03/26/17 at 08:59 Gabapentin (Neurontin) 100 mg BID@0700,1300 PO Last administered on 02/25/17 06 :24; Start 02/19/17 at 07:00; Stop 03/21/17 at 06:59 Gabapentin (Neurontin) 200 mg QHS PO Last administered on 02/24/17 21:40; Start 02/18/17 at 21:00; Stop 03/20/17 at 20:59 Heparin Sodium (Heparin (Flush)) 200 units ASDIRECTED PRN IV SEE LABEL COMMENTS Last administered on 02/25/17 00:38; Start 02/18/17 at 18:30; Stop at 18:29 Heparin Sodium (Heparin (Flush)) 200 units PICC IV Last administered on 06:25; Start 02/19/17 at 06:00; Stop 03/21/17 at 05:59 Heparin Sodium (Porcine) (Heparin) 5,000 units RQ8H SC ; Start 02/18/17 at 16:00 ; Stop 02/23/17 at 15:59; Status UNV Home Med (Med Rec Complete!) ASDIRECTED XX ; Start 02/18/17 at 15:00; Stop at 15:14; Status DC Insulin Detemir (Levemir Insulin) 10 units QHS SC ; Start 02/25/17 at 21:00; Stop 03/27/17 at 20:59 Insulin Detemir (Levemir Insulin) 20 units QHS SC Last administered on 21:41; Start 02/18/17 at 21:00; Stop 02/25/17 at 12:12; Status DC Insulin Human Lispro (HumaLOG INSULIN) See Protocol Table AC SC Last administered on 02/24/17 17:46; Start 02/18/17 at 17:30; Stop 03/20/17 at 17:29 Insulin Human Lispro (HumaLOG INSULIN) See Protocol Table QHS SC ; Start at 21:00; Stop 03/20/17 at 20:59 Insulin Human Regular (HumuLIN R INSULIN) Sliding Scale 0U for 0-1... AC SC ; Start 02/18/17 at 17:30; Stop 02/18/17 at 17:30; Status DC Insulin Human Regular (HumuLIN R INSULIN) Sliding Scale 0U for 0-1... QHS SC ; Start 02/18/17 at 21:00; Stop 02/18/17 at 21:00; Status DC Lactobacillus Acidophilus (Bacid) 1 ea BID PO Last administered on 02/25/17 09: 19; Start 02/18/17 at 21:00; Stop 03/20/17 at 20:59 Lisinopril (Prinivil) 20 mg DAILY PO Last administered on 02/25/17 09:23; Start 02/19/17 at 09:00; Stop 03/21/17 at 08:59 Magnesium Hydroxide (Milk Of Magnesia) 30 ml DAILYPRN PRN PO CONSTIPATION; Start 02/18/17 at 13:30; Stop 03/20/17 at 13:29 Multivitamins (Theragram-M) 1 tab DAILY PO ; Start 02/19/17 at 09:00; Stop 02/19 at 09:00; Status DC Multivitamins (Theragram-M) 1 tab DAILY PO Last administered on 02/25/17 09:20 ; Start 02/19/17 at 09:00; Stop 03/21/17 at 08:59 Oxycodone HCl (OxyCONTIN) 10 mg BID PO Last administered on 02/25/17 09:20; Start 02/18/17 at 21:00; Stop 02/25/17 at 12:00; Status DC Oxycodone HCl (Roxicodone, Oxyir) 5 mg Q6HP PRN PO PAIN SCALE 6-10 Last administered on 02/20/17 11:31; Start 02/18/17 at 15:00; Stop 02/25/17 at 12:00 ; Status DC Pantoprazole Sodium (Protonix) 40 mg DAILY PO Last administered on 02/25/17 09: 20; Start 02/19/17 at 09:00; Stop 03/21/17 at 08:59 Patient Own Medication (Patient'S Own Med) 1 DROP QHS OU Last administered on 21:00; Start 02/19/17 at 21:00; Stop 03/21/17 at 20:59 Polyethylene Glycol (Miralax) 1 pkt DAILY PO Last administered on 02/25/17 09: 19; Start 02/18/17 at 09:00; Stop 03/20/17 at 08:59 Rivaroxaban (Xarelto) 15 mg BID@,18 PO Last administered on 02/25/17 09:19; Start 02/18/17 at 18:00; Stop 03/09/17 at 12:00 Senna (Senokot) 2 tab BID PO Last administered on 02/25/17 09:20; Start at 21:00; Stop 03/20/17 at 20:59 Sodium Biphosphate/ Sodium Phosphate (Fleet Enema) 1 ea DAILYPRN PRN [place] CONSTIPATION; Start 02/18/17 at 13:30; Stop 03/20/17 at 13:29 Sodium Hypochlorite (Dakin'S Solution) 1/2 strength flush... BID TOP Last administered on 02/23/17 08:51; Start 02/18/17 at 21:00; Stop 02/23/17 at 15:31; Status DC Sodium Chloride (Saline Lock Flush) 10 ML PICC IV Last administered on 06:24; Start 02/19/17 at 06:00; Stop 03/21/17 at 05:59 Sodium Chloride (Saline Lock Flush) 10ML ASDIRECTED PRN IV SEE LABEL COMMENTS Last administered on 02/25/17 00:38; Start 02/18/17 at 18:30; Stop 03/20/17 at 18:29 Thiamine HCl (Thiamine HCl) 100 mg DAILY PO Last administered on 02/25/17 09:20 ; Start 02/19/17 at 09:00; Stop 03/21/17 at 08:59 Timolol Maleate (Timoptic 0.5% Ophth Flora) 1 drop QAM OU Last administered on 09:00; Start 02/19/17 at 09:00; Stop 03/21/17 at 08:59 DEIRDRE VILLEGAS MD February 25, 2017 13:05
[2017-02-25 14:00] VITALS: BP 160/72
--- NOTE | 2017-02-25 16:50 | CR ---
DATE OF CONSULTATION: 02/25/2017 REASON FOR CONSULTATION: Asked to consult for antibiotic management and followup of Staphylococcus aureus sepsis with left foot osteomyelitis polymicrobial infection. HISTORY OF PRESENT ILLNESS: Mr. Stewart is a 61-year-old gentleman with no significant past medical history until he presented to the emergency room on February 06 with complaint of left foot infection and abscess. The patient had not had medical care in many years. He had had a sore on his foot for about a month prior to admission. Then he developed fever, chills, large amount of drainage, came to our emergency room on 02/06. He had positive blood cultures for Staphylococcus aureus, methicillin-sensitive Staphylococcus aureus (MSSA), and the wound culture was positive for MSSA Streptococcus milleri and anginosis. The patient was transferred to [facility] for vascular intervention. He was also diagnosed with diabetes and Charcot neuropathy. He was found to have peripheral vascular disease and underwent a femoral popliteal bypass. His left leg bypass was done on 02/[address] Huggins. He also developed a deep venous thrombosis (DVT) of the right lower extremity. The patient was started on broad-spectrum antibiotic, eventually was switched to intravenous (IV) cefazolin 2 grams every eight hours based on positive culture results, and he was transferred to rehabilitation on 02/18 at [facility]. His is a licensed practical nurse (DISPOSAL MAN). 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 He feels better. His anticipated discharge date from rehab is on Tuesday, except that he has been reluctant to do his own IV antibiotics. PAST MEDICAL HISTORY: 1. History significant for diabetic foot ulcer, diabetes mellitus; HbA1c was 10. 2. Hypertension. 3. Peripheral vascular disease. 4. Chronic kidney disease stage II. 5. Alcohol use. 6. MSSA sepsis with positive blood cultures on 02/06 and left foot abscess with osteomyelitis and Charcot arthropathy. 7. DVT. PAST SURGICAL HISTORY: 1. Bilateral cataract surgeries done in 2012 at [facility]. 2. Left femoral-popliteal bypass on 02/10 MEDICATIONS: - Levemir 10 units subcutaneous at bedtime - Santyl one dose topically daily - Aquaphor - cefazolin 2 grams IV every eight hours - multivitamin one tablet daily - Norvasc 5 mg by mouth daily - lisinopril 20 mg by mouth daily - Protonix 40 mg by mouth daily - thiamine 100 mg daily - Timolol one drop both eyes every morning - gabapentin 100 mg by mouth twice a day and 200 mg by mouth at bedtime - Lipitor 20 mg by mouth at bedtime - Colace 100 mg by mouth twice a day - probiotics one tablet by mouth twice a day - senna two tablets by mouth twice a day - Coreg 12.5 mg daily - Xarelto 15 mg by mouth twice a day - insulin sliding scale ALLERGIES: No known drug allergies. LABORATORY DATA White count was 10 on 02/23, hemoglobin 8.8, hematocrit 26.5, platelets 138. His white count on 02/19 admission to [facility] was 11.7. Sodium 136, potassium 3.8, chloride 100, bicarb 30, BUN 22, creatinine 1.24, glucose 72, calcium 8. CRP is 7.21 down from 37.9 on 02/06. Albumin 1.9. MICROBIOLOGY: Blood cultures on 02/06 two sets were positive for MSSA. Left foot culture had MSSA and Streptococcus milleri and mitis. Urine culture 02/18 negative. Blood cultures 02/20 two sets are negative. Wound culture left foot was no growth either. IMAGING: Chest x-ray done on 02/06 was negative, and foot x-ray showed marked mid foot deformity with fractures and diversion and Lisfranc diverging variant with displaced cuneiform and first and second metatarsals. Extensive soft tissue swelling. PHYSICAL EXAMINATION: GENERAL: On physical exam, he is a pleasant healthy man in no acute distress. VITAL SIGNS: Temperature is 98.7. Temperature maximum (T-max) today was 99, pulse 62, respirations 18, blood pressure 160/72, oxygen saturation 98% on room air. Last fever was on 02/23, was 100.1. HEART: Normal S1, S2. No murmurs, rubs or gallops appreciated. LUNGS: Clear. No wheezes, rales or rhonchi. ABDOMEN: Obese, soft, nontender. No visceromegaly. BACK: No costovertebral angle tenderness. EXTREMITIES: Right foot +1 pitting edema. No clubbing or cyanosis. Left foot has medial incision along the mid metatarsal measuring about 5 cm with surrounding swelling, some maceration of the skin, serosanguineous discharge, +1 dorsalis pedis pulses appreciated, +2 pitting edema of the ankle. NEUROLOGIC: Exam is normal, alert and oriented times three. IMPRESSION: This is a 61-year-old gentleman with a new diagnosis of diabetes type 2 with a diabetic foot ulcer, osteomyelitis with Staphylococcus aureus, Streptococcus anginosis and milleri on foot culture, and Staphylococcus aureus sepsis with positive blood cultures. He had a transthoracic echocardiogram done at [facility] which was negative for vegetation with an ejection fraction of 55%. He underwent bypass surgery to his left leg with a femoral-popliteal bypass. He had a deep venous thrombosis (DVT) of his right calf. He is currently on Xarelto. The patient has slowly improved and will need IV antibiotics for total of six weeks. PLAN: Continue IV cefazolin 2 grams every eight hours. End of treatment will be March 25, 2017. [facility] has been consulted and they will do the teaching on Tuesday morning. The patient will have weekly blood work with complete blood count (CBC), C-reactive protein (CRP), erythrocyte sedimentation rate (ESR), basic profile. I have discussed the case with Dmitriy Paula from [facility]. He will followup in my office two weeks prior after discharge.
[2017-02-25 20:00] VITALS: BP 135/61
[2017-02-25] MEDS: LUMIGAN EYE DROPS (PATIENT'S OWN MED) OU SCH (21:00)
[2017-02-25] MEDS: ATORVASTATIN 20 MG TAB PO SCH (22:11)
[2017-02-25] MEDS: LEVEMIR (INSULIN DETEMIR) 1 UNITS/0.01ML SC SCH (22:13)
[2017-02-26 06:00] VITALS: BP 169/72
[2017-02-26] MEDS: GABAPENTIN 100 MG CAP PO SCH ×3 (06:05→20:29)
[2017-02-26] MEDS: SODIUM CHLORIDE 0.9% INJ 10 ML SYR IV SCH ×2 (06:05→17:37)
[2017-02-26] MEDS: RIVAROXABAN 15 MG TAB (XARELTO) PO SCH ×2 (08:27→17:37)
[2017-02-26] MEDS: HumaLOG INSULIN (NovoLOG) PER UNIT SC SCH ×4 (08:27→19:55)
[2017-02-26] MEDS: PANTOPRAZOLE 40MG TAB (PROTONIX) PO SCH (08:28)
[2017-02-26] MEDS: LACTOBACILLUS ACIDOPHILUS CAP (BACID) PO SCH ×2 (08:28→20:28)
[2017-02-26] MEDS: MULTIVITAMINS/MINERALS THERAP 1 TAB PO SCH (08:28)
[2017-02-26] MEDS: THIAMINE 100 MG TAB PO SCH (08:28)
[2017-02-26] MEDS: LISINOPRIL 20 MG TAB PO SCH (08:28)
[2017-02-26] MEDS: SENNA 8.6 MG TAB (SENOKOT) PO SCH ×2 (08:29→20:29)
[2017-02-26] MEDS: DOCUSATE SODIUM 100 MG CAP PO SCH ×2 (08:29→20:30)
[2017-02-26] MEDS: MIRALAX *UNIT DOSE* 17GM PACKET PO SCH (08:29)
[2017-02-26] MEDS: CARVedilol 12.5 MG TAB PO SCH ×2 (08:29→20:29)
[2017-02-26] MEDS: AQUAPHOR **100GM** OINT TOP SCH (08:30)
[2017-02-26] MEDS: SANTYL OINT 30GM TOP SCH (08:30)
[2017-02-26] MEDS: TIMOLOL MALEATE 0.5% OPHTH SOLN 5 ML OU SCH (08:31)
[2017-02-26] MEDS: amLODIPine 5 MG TAB PO SCH (08:32)
[2017-02-26 14:00] VITALS: BP 164/74
[2017-02-26] MEDS: SODIUM CHLORIDE 0.9% INJ 10 ML SYR IV PRN ×2 (15:36→16:36)
[2017-02-26 20:00] VITALS: BP 163/77
[2017-02-26] MEDS: LEVEMIR (INSULIN DETEMIR) 1 UNITS/0.01ML SC SCH (20:30)
[2017-02-26] MEDS: ATORVASTATIN 20 MG TAB PO SCH (20:30)
[2017-02-26] MEDS: LUMIGAN EYE DROPS (PATIENT'S OWN MED) OU SCH (20:31)
[2017-02-27] MEDS: SODIUM CHLORIDE 0.9% INJ 10 ML SYR IV PRN ×4 (00:21→16:26)
[2017-02-27 06:00] VITALS: BP 166/78
[2017-02-27] MEDS: GABAPENTIN 100 MG CAP PO SCH ×3 (06:02→20:58)
[2017-02-27] MEDS: SODIUM CHLORIDE 0.9% INJ 10 ML SYR IV SCH ×2 (06:02→17:32)
[2017-02-27] MEDS: RIVAROXABAN 15 MG TAB (XARELTO) PO SCH ×2 (07:50→17:10)
[2017-02-27] MEDS: HumaLOG INSULIN (NovoLOG) PER UNIT SC SCH ×4 (07:51→20:59)
[2017-02-27] MEDS: TIMOLOL MALEATE 0.5% OPHTH SOLN 5 ML OU SCH (09:00)
[2017-02-27] MEDS: ACETAMINOPHEN TAB 650MG DOSE (2X325MG) PO PRN (09:42)
[2017-02-27] MEDS: MULTIVITAMINS/MINERALS THERAP 1 TAB PO SCH (09:44)
[2017-02-27] MEDS: MIRALAX *UNIT DOSE* 17GM PACKET PO SCH (09:44)
[2017-02-27] MEDS: PANTOPRAZOLE 40MG TAB (PROTONIX) PO SCH (09:45)
[2017-02-27] MEDS: LACTOBACILLUS ACIDOPHILUS CAP (BACID) PO SCH ×2 (09:45→20:58)
[2017-02-27] MEDS: LISINOPRIL 20 MG TAB PO SCH (09:46)
[2017-02-27] MEDS: SENNA 8.6 MG TAB (SENOKOT) PO SCH ×2 (09:47→20:57)
[2017-02-27] MEDS: CARVedilol 12.5 MG TAB PO SCH ×2 (09:47→20:58)
[2017-02-27] MEDS: amLODIPine 5 MG TAB PO SCH (09:48)
[2017-02-27] MEDS: DOCUSATE SODIUM 100 MG CAP PO SCH ×2 (09:48→20:57)
[2017-02-27] MEDS: THIAMINE 100 MG TAB PO SCH (09:48)
[2017-02-27] MEDS: SANTYL OINT 30GM TOP SCH (09:50)
[2017-02-27] MEDS: AQUAPHOR **100GM** OINT TOP SCH (09:50)
[2017-02-27 14:00] VITALS: BP 165/77
[2017-02-27 20:00] VITALS: BP 173/78
[2017-02-27] MEDS: LEVEMIR (INSULIN DETEMIR) 1 UNITS/0.01ML SC SCH (20:57)
[2017-02-27] MEDS: LUMIGAN EYE DROPS (PATIENT'S OWN MED) OU SCH (20:58)
[2017-02-27] MEDS: ATORVASTATIN 20 MG TAB PO SCH (20:58)
[2017-02-28] MEDS: SODIUM CHLORIDE 0.9% INJ 10 ML SYR IV PRN ×2 (00:43→09:54)
[2017-02-28] MEDS: GABAPENTIN 100 MG CAP PO SCH (05:57)
[2017-02-28] MEDS: SODIUM CHLORIDE 0.9% INJ 10 ML SYR IV SCH (05:58)
[2017-02-28 06:00] VITALS: BP 160/80
[2017-02-28] MEDS: HumaLOG INSULIN (NovoLOG) PER UNIT SC SCH (08:35)
[2017-02-28] MEDS: LACTOBACILLUS ACIDOPHILUS CAP (BACID) PO SCH (08:36)
[2017-02-28] MEDS: THIAMINE 100 MG TAB PO SCH (08:36)
[2017-02-28] MEDS: PANTOPRAZOLE 40MG TAB (PROTONIX) PO SCH (08:42)
[2017-02-28] MEDS: MULTIVITAMINS/MINERALS THERAP 1 TAB PO SCH (08:43)
[2017-02-28] MEDS: DOCUSATE SODIUM 100 MG CAP PO SCH (08:43)
[2017-02-28] MEDS: SENNA 8.6 MG TAB (SENOKOT) PO SCH (08:43)
[2017-02-28] MEDS: RIVAROXABAN 15 MG TAB (XARELTO) PO SCH (08:43)
[2017-02-28] MEDS: CARVedilol 12.5 MG TAB PO SCH (08:46)
[2017-02-28 08:47] VITALS: BP 158/80
[2017-02-28] MEDS: LISINOPRIL 20 MG TAB PO SCH (08:47)
[2017-02-28] MEDS: amLODIPine 5 MG TAB PO SCH (08:47)
[2017-02-28] MEDS: TIMOLOL MALEATE 0.5% OPHTH SOLN 5 ML OU SCH (08:50)
[2017-02-28] MEDS: SANTYL OINT 30GM TOP SCH (08:52)
[2017-02-28] MEDS: AQUAPHOR **100GM** OINT TOP SCH (08:52)
[2017-02-28] MEDS: MIRALAX *UNIT DOSE* 17GM PACKET PO SCH (09:00)
[2017-02-28] MEDS ORDERED: TIMO5OPD OU (09:50)
[2017-02-28] MEDS ORDERED: LISI-538 PO (09:50)
[2017-02-28] MEDS ORDERED: PANT40TA2 PO (09:50)
[2017-02-28] MEDS ORDERED: XARE15TA PO (09:50)
[2017-02-28] MEDS ORDERED: SANT250O8 TOP ×2 (09:50→10:11)
[2017-02-28] MEDS ORDERED: AMLO5TAB2 PO (09:50)
[2017-02-28] MEDS ORDERED: CARV12.5 PO (09:50)
[2017-02-28] MEDS ORDERED: THIA100TA PO (09:50)
[2017-02-28] MEDS ORDERED: AQUA100OI TOP ×2 (09:50→10:11)
[2017-02-28] MEDS ORDERED: GABA-279 PO (09:50)
[2017-02-28] MEDS ORDERED: ATOR1TAB21 PO (09:50)
--- NOTE | 2017-02-28 15:59 | PMRDS ---
DATE OF ADMISSION: 02/18/2017 DATE OF DISCHARGE: 02/28/2017 DISCHARGE DIAGNOSES: 1. Rehabilitation of left foot diabetic ulcer secondary to diabetic-caused peripheral vascular disease and polyneuropathy. 2. Unrecognized type 2 diabetes mellitus with peripheral vascular disease and polyneuropathy and left foot ulcer. 3. Atherosclerotic cardiovascular disease, including hypertension and hyperlipidemia. 4. Hypoalbuminemia. 5. Status post left femoral popliteal bypass artery grafting on 02/10/2017 after having had his left foot ulcer debrided by dials supervisor on 02/08/2017. 6. Deep vein thrombosis (DVT), right leg, prior to this admission. 7. Patient with methicillin-sensitive Staphylococcus aureus (MSSA) and Streptococcal aeruginosa of the diabetic foot ulcer on the left. 8. Moderate anemia with thrombocytopenia. HISTORY: Patient found by to have ulcer on his left foot that he had been continuing to go work and walk on and he went and saw his dials supervisor on 02/08/2017, had debridement of the wound, and then was transferred down to [facility] for vascular surgery evaluation and management on 02/10/2017, and underwent a left femoral popliteal artery bypass to treat the peripheral vascular disease and hopefully regain some improvement in the polyneuropathy that had led to the left foot ulceration. The patient progressed in therapy there and was referred to [facility] for rehabilitation of his polyneuropathy-caused left foot ulcer and was admitted on 02/18/2017. PROCEDURES: None. DIAGNOSTIC/LABORATORY DATA: Patient with elevated white count on admission of 11.7 and hemoglobin and hematocrit diminished at 8.9/28.1%. As the patient progressed in therapy, he continued to show stability in the hemoglobin and hematocrit and his white count decreased to 10.0. Electrolytes remained stable throughout admission, though his BUN did climb mildly as he as here to 22 but had normal creatinine and glomerular filtration rate. The patient's albumin, however, remains low in the 1.8 to 1.9 range during prior evaluations. Blood sugars, however, on consistent-carbohydrate diet with four times a day blood sugar checks before meals and at bedtime and sliding scale tended to remain in the 70-190 range for most of the admission, generally in the 70-140 range. The patient participated in physical and occupations therapy, going from dynamic sitting and standing balance being fair plus to being good minus on these, and going from ambulating with occasional near assist in basic activities of daily living (ADLs) to modified-independent, and ambulating from 60 feet increased to greater than 90, and wheelchair mobility became greater than 100 feet with the patient able to do four steps up and down repeatedly. COMPLICATIONS: None. DISCHARGE PLAN: The patient is discharged to home with home care services to continue his Ancef 2 grams every eight hours infusions, he is to followup on that with Dr. Estella Perez of infectious disease in approximately two weeks. He is to see Dr. Huggins on 03/12/2017 as previously scheduled for followup on his vascular surgery. The patient has been assessed with palliative medicine by Dr. Trivedi will see him within the week and patient to see one of the residents for establishing primary care followup at the [facility] within two weeks. He is to have a referral by his new primary care provider (PCP) to Dr. Miranda to followup on platelets and other blood abnormalities. During the admission, platelets have climbed from admission at 93,000 to 138,000. DISCHARGE MEDICATIONS: - amlodipine 5 mg by mouth daily - atorvastatin 20 mg by mouth at bedtime - Coreg 12.5 mg by mouth twice a day - Santyl collagenase to foot ulcer daily - Aquaphor emollient ointment to treat skin around wounds daily - gabapentin 100 mg twice a day and 200 mg at bedtime - lisinopril 20 mg by mouth daily - pantoprazole 40 mg by mouth daily - Xarelto 15 mg twice a day for anticoagulation - thiamine 100 mg by mouth daily, he probably should be able to discontinue this after a month - timolol malleate 0.5% solution one drop each eye every morning - cephazolin sodium 2 grams per 20 mL infusion every eight hours to continue until 03/25/2017 - multivitamin daily - probiotic tablet by mouth twice a day The patient has not required opiate management of his pain. Simple Tylenol has been effective for him. The patient will continue with physical and occupational therapy as well as wound care and home antibiotic management with home infusion. TIME SPENT ON DISCHARGE: Greater than 35 minutes.
== END 2017-02-28 11:50 | disposition home health service (06) | DRG 380 ==
LOC: M PM&R 02-18 13:39
PROVIDERS: ADMIT Physical Medicine & Rehabilitation; ATTEND Physical Medicine & Rehabilitation
DX: E11.621 Type 2 diabetes mellitus with foot ulcer (principal); N17.9 Acute kidney failure, unspecified; E11.29 Type 2 diabetes mellitus with other diabetic kidney complication; L97.529 Non-pressure chronic ulcer of other part of left foot with unspecified severity; E11.42 Type 2 diabetes mellitus with diabetic polyneuropathy; E11.51 Type 2 diabetes mellitus with diabetic peripheral angiopathy without gangrene; D69.6 Thrombocytopenia, unspecified; E88.09 Other disorders of plasma-protein metabolism, not elsewhere classified; I12.9 Hypertensive chronic kidney disease with stage 1 through stage 4 chronic kidney disease, or unspecified chronic kidney disease; R26.9 Unspecified abnormalities of gait and mobility; E78.5 Hyperlipidemia, unspecified; N18.2 Chronic kidney disease, stage 2 (mild); K21.9 Gastro-esophageal reflux disease without esophagitis; F10.10 Alcohol abuse, uncomplicated; D64.9 Anemia, unspecified; Z79.899 Other long term (current) drug therapy; Z79.4 Long term (current) use of insulin; Z86.718 Personal history of other venous thrombosis and embolism; Z95.9 Presence of cardiac and vascular implant and graft, unspecified; Z87.891 Personal history of nicotine dependence; Z79.01 Long term (current) use of anticoagulants; Z83.3 Family history of diabetes mellitus; Z82.49 Family history of ischemic heart disease and other diseases of the circulatory system

== ENCOUNTER → 2017-03-07 | Outpatient (REF) | payer BC ==
[~2017-03-07] MED LIST: AMLO5TAB2 PO; AQUA100OI TOP; ATOR1TAB21 PO; BACITAB3 PO; BIMA01SOL OU; CARV12.5 PO; CEFA2INJ IV; DAILTAB51 PO; DOCU100C PO; GABA-279 PO; HUMA100I3 SC; INSULANT SC; LISI-538 PO; MIRA33504 PO; OXYC10TA12 PO; PANT40TA2 PO; SANT250O8 TOP; SENN1TAB2 PO; THIA100TA PO; TIMO5OPD OU; XARE15TA PO
== END ==
LOC: M LAB REF 13:59
PROVIDERS: ATTEND Internal Medicine Infectious Disease
DX: M86.9 Osteomyelitis, unspecified (principal)

== ENCOUNTER → 2017-03-08 | Outpatient (REF) | payer BC ==
[2017-03-08 14:05] LABS: ANION GAP 5 MEQ/L (8-16); BLOOD UREA NITROGEN 13 MG/DL (7-18); CALCIUM LEVEL 8.5 MG/DL (8.8-10.2); CARBON DIOXIDE LEVEL 31 MEQ/L (21-32); CHLORIDE LEVEL 104 MEQ/L (98-107); CREATININE FOR GFR 0.93 MG/DL (0.70-1.30); GLOMERULAR FILTRATION RATE > 60.0 (>49); GLUCOSE, FASTING 235 MG/DL (80-110); SODIUM LEVEL 140 MEQ/L (136-145)
[2017-03-08 14:08] LABS: POTASSIUM SERUM 4.8 MEQ/L (3.5-5.1)
== END ==
LOC: M LAB REF 13:16
PROVIDERS: ATTEND Internal Medicine Infectious Disease
DX: M86.9 Osteomyelitis, unspecified (principal)

== ENCOUNTER → 2017-03-10 | Outpatient (REF) | payer BC ==
[2017-03-10 15:56] LABS: MEAN CORPUSCULAR HEMOGLOBIN 28.8 pg (27.0-33.0); MEAN CORPUSCULAR HGB CONC 32.9 g/dl (32.0-36.5); MEAN CORPUSCULAR VOLUME 87.4 fl (80.0-96.0); RED CELL DISTRIBUTION WIDTH 13.5 % (11.5-14.5); WHITE BLOOD COUNT 8.1 K/mm3 (4.0-10.0)
[2017-03-10 16:52] LABS: ANION GAP 9 MEQ/L (8-16); BLOOD UREA NITROGEN 15 MG/DL (7-18); CALCIUM LEVEL 8.4 MG/DL (8.8-10.2); CARBON DIOXIDE LEVEL 29 MEQ/L (21-32); CHLORIDE LEVEL 101 MEQ/L (98-107); CREATININE FOR GFR 0.88 MG/DL (0.70-1.30); GLOMERULAR FILTRATION RATE > 60.0 (>49); GLUCOSE, FASTING 137 MG/DL (80-110); POTASSIUM SERUM 3.5 MEQ/L (3.5-5.1); SODIUM LEVEL 139 MEQ/L (136-145)
== END ==
LOC: M LAB REF 15:21
PROVIDERS: ATTEND Family Medicine
DX: E11.51 Type 2 diabetes mellitus with diabetic peripheral angiopathy without gangrene (principal)

== ENCOUNTER → 2017-03-15 | Outpatient (REF) | payer BC ==
[2017-03-15 18:17] LABS: BASO % 0.7 % (0.0-1.0); EOS # 0.6 K/mm3 (0.0-0.50); EOS % 7.3 % (0.0-3.0); LARGE UNSTAINED CELL # 0.2 K/mm3 (0.0-0.4); LARGE UNSTAINED CELL % 3.1 % (0.0-4.0); LYMPH # 1.9 K/mm3 (1.5-4.5); LYMPH % 24.3 % (24.0-44.0); MEAN CORPUSCULAR HEMOGLOBIN 28.4 pg (27.0-33.0); MEAN CORPUSCULAR HGB CONC 33.1 g/dl (32.0-36.5); MEAN CORPUSCULAR VOLUME 85.9 fl (80.0-96.0); MONO # 0.7 K/mm3 (0.0-0.8); MONO % 9.4 % (0.0-5.0); NEUTROPHILS # 4.2 K/mm3 (1.8-7.7); NEUTROPHILS % 55.2 % (36.0-66.0); PLATELET COUNT, AUTOMATED 213 k/mm3 (150-450); RED CELL DISTRIBUTION WIDTH 13.4 % (11.5-14.5); WHITE BLOOD COUNT 7.7 K/mm3 (4.0-10.0)
[2017-03-15 18:44] LABS: ANION GAP 9 MEQ/L (8-16); BLOOD UREA NITROGEN 34 MG/DL (7-18); CALCIUM LEVEL 8.6 MG/DL (8.8-10.2); CARBON DIOXIDE LEVEL 28 MEQ/L (21-32); CHLORIDE LEVEL 104 MEQ/L (98-107); CREATININE FOR GFR 1.22 MG/DL (0.70-1.30); GLOMERULAR FILTRATION RATE > 60.0 (>49); GLUCOSE, FASTING 188 MG/DL (80-110); SODIUM LEVEL 141 MEQ/L (136-145)
[2017-03-15 19:04] LABS: ERYTHROCYTE SEDIMENTATION RATE 3 mm/hr (0-20)
== END ==
LOC: M LAB REF 17:27
PROVIDERS: ATTEND Internal Medicine Infectious Disease
DX: M86.9 Osteomyelitis, unspecified (principal)

== ENCOUNTER → 2017-03-22 | Outpatient (REF) | payer BC | LOC: M LAB REF 16:30 | PROVIDERS: ATTEND Surgery | DX: E11.621 Type 2 diabetes mellitus with foot ulcer (principal) ==

== ENCOUNTER → 2017-05-18 | Outpatient (CLI) | payer BC ==
[~2017-05-18] MED LIST changes: +BACITAB PO; -BACITAB3 PO; +CLEO300C2 PO; -DOCU100C PO; +DOCU100C16 PO; +METF500T13 PO; +POTA20TA FT; +PROT1TAB2 PO; +TIMO0.5S29 OU; -TIMO5OPD OU
== END ==
LOC: M WUC 14:44
PROVIDERS: ATTEND Family Medicine
DX: E11.621 Type 2 diabetes mellitus with foot ulcer (principal)

== ENCOUNTER 2017-05-22 16:21 | Emergency (ER) | payer BC ==
[~2017-05-22] VITALS: Ht 167.6 cm; Wt 72.7 kg
[~2017-05-22 16:21] MED LIST changes: -CLEO300C2 PO; -METF500T13 PO; -POTA20TA FT; -PROT1TAB2 PO
[2017-05-22 16:22] VITALS: BP 168/77
[2017-05-22] MEDS ORDERED: POTA20TA FT (16:36)
[2017-05-22] MEDS ORDERED: METF500T13 PO (16:36)
[2017-05-22] MEDS ORDERED: PROT1TAB2 PO (16:36)
[2017-05-22] MEDS ORDERED: CLEO300C2 PO (16:48)
== END 2017-05-22 17:12 | disposition home or self-care (01) ==
LOC: M ED 16:21
DX: S91.302A Unspecified open wound, left foot, initial encounter (principal); X58.XXXA Exposure to other specified factors, initial encounter; Y92.9 Unspecified place or not applicable; Y93.9 Activity, unspecified; Y99.9 Unspecified external cause status; E78.00 Pure hypercholesterolemia, unspecified; I10 Essential (primary) hypertension; E11.9 Type 2 diabetes mellitus without complications; Z87.891 Personal history of nicotine dependence; Z79.899 Other long term (current) drug therapy; Z79.84 Long term (current) use of oral hypoglycemic drugs

== ENCOUNTER → 2017-05-27 | Outpatient (CLI) | payer BC ==
[~2017-05-27] MED LIST changes: +CLEO300C2 PO; +METF500T13 PO; +POTA20TA FT; +PROT1TAB2 PO
--- NOTE | 2017-05-27 16:46 | REP ---
HISTORY: Foot ulcer. COMPARISON: 02/06/2017 There is a new abnormal lucency seen involving the base of the first metatarsal with abnormal subluxation of the first cuneiform medially, which has increased from the prior exam. There is irregularity and a moth-eaten pattern involving the base of the first metatarsal. This, too, represents a change from the prior exam. The bones are markedly demineralized and degenerative change seen throughout the foot. IMPRESSION: Multiple midfoot abnormalities. Osteomyelitis cannot be ruled out. A Charcot's joint is suspected. The Lisfranc variant seen on the prior exam is again noted and it is unchanged with a separation between the bases of the first and second metatarsals. The comminuted fractures involving the cuneiforms are not as well imaged today compared to the prior exam. Some callus formation from healing may be occurring. MRI is recommended to search for marrow edema. Signed by Edin Barboza DO 05/27/2017 04:58 P
== END ==
LOC: M WUC 15:13
PROVIDERS: ATTEND Family Medicine
DX: E11.621 Type 2 diabetes mellitus with foot ulcer (principal)

== ENCOUNTER → 2017-07-08 | Outpatient (REF) | payer BC | LOC: M LAB REF 11:30 | PROVIDERS: ATTEND Surgery | DX: E11.621 Type 2 diabetes mellitus with foot ulcer (principal) ==

== ENCOUNTER 2017-07-17 12:47 | Emergency (ER) | payer BC ==
[~2017-07-17] VITALS: Ht 167.6 cm; Wt 68.2 kg
[2017-07-17] MEDS ORDERED: cefTRIAXone SOD 1 GM VIAL (J0696) IM ONE (14:00)
[2017-07-17] MEDS ORDERED: CLINDAMYCIN 150 MG CAP PO ONE (14:00)
[2017-07-17] MEDS ORDERED: CLEO300C2 PO (14:11)
[2017-07-17 14:44] VITALS: BP 168/71
== END 2017-07-17 14:44 | disposition home or self-care (01) ==
LOC: M ED 12:47
DX: L03.031 Cellulitis of right toe (principal); I10 Essential (primary) hypertension; E11.9 Type 2 diabetes mellitus without complications; I25.10 Atherosclerotic heart disease of native coronary artery without angina pectoris; Z95.1 Presence of aortocoronary bypass graft; Z79.899 Other long term (current) drug therapy; Z79.84 Long term (current) use of oral hypoglycemic drugs
CPT/HCPCS: 87070; 87077; 87205; 96372; 99282; J0696

== ENCOUNTER → 2017-07-18 | Outpatient (REF) | payer BC ==
[2017-07-19 16:26] LABS: MEAN CORPUSCULAR HEMOGLOBIN 29.3 pg (27.0-33.0); MEAN CORPUSCULAR HGB CONC 30.9 g/dl (32.0-36.5); MEAN CORPUSCULAR VOLUME 94.8 fl (80.0-96.0); RED CELL DISTRIBUTION WIDTH 15.3 % (11.5-14.5); WHITE BLOOD COUNT 9.7 10^3/uL (4.0-10.0)
[2017-07-19 16:46] LABS: ALBUMIN 3.4 GM/DL (3.2-5.2); ALBUMIN/GLOBULIN RATIO 1.03 (1.00-1.93); ALKALINE PHOSPHATASE 66 U/L (45-117); ALT/SGPT 23 U/L (12-78); ANION GAP 9 MEQ/L (8-16); AST/SGOT 10 U/L (15-37); BILIRUBIN,TOTAL 0.3 MG/DL (0.2-1.0); BLOOD UREA NITROGEN 32 MG/DL (7-18); CALCIUM LEVEL 9.1 MG/DL (8.8-10.2); CARBON DIOXIDE LEVEL 25 MEQ/L (21-32); CHLORIDE LEVEL 110 MEQ/L (98-107); CREATININE FOR GFR 1.27 MG/DL (0.70-1.30); GLOMERULAR FILTRATION RATE > 60.0 (>49); GLUCOSE, FASTING 128 MG/DL (80-110); POTASSIUM SERUM 4.3 MEQ/L (3.5-5.1); SODIUM LEVEL 144 MEQ/L (136-145); TOTAL PROTEIN 6.7 GM/DL (6.4-8.2)
== END ==
LOC: M LAB REF 12:44
PROVIDERS: ATTEND Surgery
DX: E11.621 Type 2 diabetes mellitus with foot ulcer (principal)

== ENCOUNTER → 2017-07-25 | Outpatient (CLI) | payer BC ==
[2017-07-25 16:27] LABS: CREATININE FOR GFR 1.3 MG/DL (0.70-1.30); GLOMERULAR FILTRATION RATE 59.4 (>49)
== END ==
LOC: M WUC 10:37
PROVIDERS: ATTEND Surgery Vascular Surgery
DX: I70.211 Atherosclerosis of native arteries of extremities with intermittent claudication, right leg (principal)

== ENCOUNTER → 2017-11-19 | Outpatient (CLI) | payer BC ==
[2017-11-19 12:31] LABS: ESTIMATED AVERAGE GLUCOSE 134 MG/DL (60-110); HEMOGLOBIN A1c 6.3 %
[2017-11-19 12:46] LABS: CREATININE, URINE 91.9 MG/DL; MALB URINE SIEMENS 9.3 MG/L; MAU/CREAT RATIO 10.1 MCG/MG (0.0-30.0)
== END ==
LOC: M LAB 11:29
DX: E11.51 Type 2 diabetes mellitus with diabetic peripheral angiopathy without gangrene (principal)
CPT/HCPCS: 83036

== ENCOUNTER → 2018-02-17 | Outpatient (CLI) | payer BC ==
[2018-02-17 19:36] LABS: ANION GAP 6 MEQ/L (8-16); BLOOD UREA NITROGEN 29 MG/DL (7-18); CALCIUM LEVEL 9.3 MG/DL (8.8-10.2); CARBON DIOXIDE LEVEL 27 MEQ/L (21-32); CHLORIDE LEVEL 109 MEQ/L (98-107); CREATININE FOR GFR 1.14 MG/DL (0.70-1.30); GLOMERULAR FILTRATION RATE > 60.0 (>49); GLUCOSE, FASTING 128 MG/DL (70-100); POTASSIUM SERUM 4.7 MEQ/L (3.5-5.1); SODIUM LEVEL 142 MEQ/L (136-145)
[2018-02-17 19:41] LABS: ESTIMATED AVERAGE GLUCOSE 140 MG/DL (60-110); HEMOGLOBIN A1c 6.5 %
== END ==
LOC: M WUC 17:19
DX: E11.621 Type 2 diabetes mellitus with foot ulcer (principal)
CPT/HCPCS: 83036

== ENCOUNTER → 2018-03-08 | Outpatient (CLI) | payer BC ==
[2018-03-08 19:48] LABS: ANION GAP 5 MEQ/L (8-16); BLOOD UREA NITROGEN 30 MG/DL (7-18); CALCIUM LEVEL 8.9 MG/DL (8.8-10.2); CARBON DIOXIDE LEVEL 29 MEQ/L (21-32); CHLORIDE LEVEL 109 MEQ/L (98-107); CREATININE FOR GFR 1.29 MG/DL (0.70-1.30); GLOMERULAR FILTRATION RATE 59.7 (>49); GLUCOSE, FASTING 127 MG/DL (70-100); POTASSIUM SERUM 4.4 MEQ/L (3.5-5.1); SODIUM LEVEL 143 MEQ/L (136-145)
[2018-03-08 20:24] LABS: CREATININE, URINE 59.3 MG/DL; MALB URINE SIEMENS 5.3 MG/L; MAU/CREAT RATIO 8.9 MCG/MG (0.0-30.0)
== END ==
LOC: M WUC 16:43
DX: I10 Essential (primary) hypertension (principal)
CPT/HCPCS: 82043

== ENCOUNTER → 2018-03-22 | Outpatient (CLI) | payer BC | LOC: M RAD 07:36 | DX: I10 Essential (primary) hypertension (principal) ==

== ENCOUNTER → 2018-03-23 | Outpatient (CLI) | payer BC | LOC: M WUC 16:29 | DX: I10 Essential (primary) hypertension (principal); Z53.9 Procedure and treatment not carried out, unspecified reason ==

== ENCOUNTER → 2018-03-26 | Outpatient (CLI) | payer BC ==
[2018-03-26 12:22] LABS: ALBUMIN 3.7 GM/DL (3.2-5.2); THYROID STIMULATING HORMONE 0.982 uIU/ML (0.358-3.740)
[2018-03-31 00:08] LABS: DOPAMINE 496 ug/g Creat (0-348); DOPAMINE, URINE 400 ug/L (Undefined); EPINEPHRINE 11 ug/g Creat (0-19); METANEPHRINE PLASMA 92 pg/mL (0-62); NOREPINEPHRINE 65 ug/g Creat (0-111); NOREPINEPHRINE UR 52 ug/L (Undefined); NORMETANEPHRINE PLASMA 111 pg/mL (0-145)
[2018-03-31 00:08] LABS: ALDOSTERONE 2.7 ng/dL (0.0-30.0)
== END ==
LOC: M LAB 10:23
DX: I10 Essential (primary) hypertension (principal)
CPT/HCPCS: 82040

== ENCOUNTER → 2018-08-06 | Outpatient (CLI) | payer BC ==
[2018-08-06 08:56] LABS: HEMATOCRIT 35.8 % (42.0-52.0); HEMOGLOBIN 11.6 g/dl (13.5-17.5)
[2018-08-06 09:23] LABS: ANION GAP 5 MEQ/L (8-16); BLOOD UREA NITROGEN 35 MG/DL (7-18); CARBON DIOXIDE LEVEL 29 MEQ/L (21-32); CHLORIDE LEVEL 112 MEQ/L (98-107); CHOLESTEROL LEVEL 136 MG/DL (<200); CHOLESTEROL RISK RATIO 2.385 (<5); CREATININE FOR GFR 1.26 MG/DL (0.70-1.30); GLOMERULAR FILTRATION RATE > 60.0 (>49); GLUCOSE, FASTING 136 MG/DL (70-100); HDL CHOLESTEROL 57 MG/DL (>40); LDL CHOLESTEROL 68 MG/DL (<100); NON-HDL-C 79 MG/DL; POTASSIUM SERUM 4.4 MEQ/L (3.5-5.1); SODIUM LEVEL 146 MEQ/L (136-145); TRIGLYCERIDES LEVEL 55 MG/DL (<150)
[2018-08-06 10:02] LABS: ESTIMATED AVERAGE GLUCOSE 126 MG/DL (60-110)
== END ==
LOC: M LAB 08:40
DX: E78.5 Hyperlipidemia, unspecified (principal); E11.9 Type 2 diabetes mellitus without complications; I10 Essential (primary) hypertension
CPT/HCPCS: 83036

== ENCOUNTER → 2018-08-27 | Outpatient (CLI) | payer BC ==
[2018-08-30 00:08] LABS: HOMOCYST(E)INE SERUM 15.6 umol/L (0.0-15.0)
[2018-08-31 08:06] LABS: Methylmalonic Acid 167 nmol/L (0-378)
== END ==
LOC: M LAB 08:11
DX: G62.9 Polyneuropathy, unspecified (principal)
CPT/HCPCS: 82607

== ENCOUNTER → 2018-08-27 | Outpatient (CLI) | payer BC ==
[2018-08-27 09:34] LABS: ANION GAP 8 MEQ/L (8-16); BLOOD UREA NITROGEN 29 MG/DL (7-18); CALCIUM LEVEL 9.5 MG/DL (8.8-10.2); CARBON DIOXIDE LEVEL 26 MEQ/L (21-32); CHLORIDE LEVEL 108 MEQ/L (98-107); CREATININE FOR GFR 1.21 MG/DL (0.70-1.30); GLOMERULAR FILTRATION RATE > 60.0 (>49); GLUCOSE, FASTING 169 MG/DL (70-100); POTASSIUM SERUM 4.5 MEQ/L (3.5-5.1); SODIUM LEVEL 142 MEQ/L (136-145)
== END ==
LOC: M LAB 08:06
DX: I10 Essential (primary) hypertension (principal)
CPT/HCPCS: 80048

== ENCOUNTER → 2019-01-22 | Outpatient (CLI) | payer BC ==
[~2019-01-22] MED LIST changes: -AMLO5TAB2 PO; +AMLO5TAB6 PO; -CEFA2INJ IV; +CEFA2INJ3 IV; +GABA-1171 PO; -GABA-279 PO; +KLOR20TA42 FT; -PANT40TA2 PO; +PANT40TA3 PO; -POTA20TA FT
[2019-01-22 11:33] LABS: CALCIUM LEVEL 9.3 MG/DL (8.8-10.2); CREATININE FOR GFR 1.39 MG/DL (0.70-1.30); GLOMERULAR FILTRATION RATE 54.6 (>49); POTASSIUM SERUM 4.8 MEQ/L (3.5-5.1)
== END ==
LOC: M LAB 09:55
PROVIDERS: ATTEND Family Medicine
DX: E11.51 Type 2 diabetes mellitus with diabetic peripheral angiopathy without gangrene (principal)

== ENCOUNTER → 2019-04-09 | Outpatient (CLI) | payer BC ==
[~2019-04-09] MED LIST changes: -SENN1TAB2 PO; +SENN1TAB40 PO
[2019-04-09 11:43] LABS: CALCIUM LEVEL 9.6 MG/DL (8.8-10.2); CREATININE FOR GFR 1.31 MG/DL (0.70-1.30); GLOMERULAR FILTRATION RATE 58.5 (>49); POTASSIUM SERUM 5.7 MEQ/L (3.5-5.1)
== END ==
LOC: M LAB 09:30
PROVIDERS: ATTEND Family Medicine
DX: E11.51 Type 2 diabetes mellitus with diabetic peripheral angiopathy without gangrene (principal)

== ENCOUNTER → 2019-04-23 | Outpatient (CLI) | payer BC, MEDICARE ==
[~2019-04-23] MED LIST changes: +SENN-53 PO; -SENN1TAB40 PO
[2019-04-23 09:55] LABS: CALCIUM LEVEL 9.3 MG/DL (8.8-10.2); CREATININE FOR GFR 1.4 MG/DL (0.70-1.30); GLOMERULAR FILTRATION RATE 54.1 (>49); POTASSIUM SERUM 4.5 MEQ/L (3.5-5.1)
[2019-04-23 10:05] LABS: CREATININE, URINE 79.4 MG/DL; MALB URINE SIEMENS 10.4 MG/L
== END ==
LOC: M LAB 08:48
PROVIDERS: ATTEND Family Medicine
DX: E11.51 Type 2 diabetes mellitus with diabetic peripheral angiopathy without gangrene (principal); E87.5 Hyperkalemia

== ENCOUNTER → 2019-08-08 | Outpatient (CLI) | payer BC ==
[2019-08-08 10:17] LABS: CALCIUM LEVEL 9.5 MG/DL (8.8-10.2); CREATININE FOR GFR 1.55 MG/DL (0.70-1.30); GLOMERULAR FILTRATION RATE 48.1 (>49); POTASSIUM SERUM 4.7 MEQ/L (3.5-5.1)
[2019-08-08 10:24] LABS: HEMOGLOBIN A1c 6.2 %
== END ==
LOC: M LAB 09:25
PROVIDERS: ATTEND Family Medicine
DX: E11.51 Type 2 diabetes mellitus with diabetic peripheral angiopathy without gangrene (principal); R79.89 Other specified abnormal findings of blood chemistry

== ENCOUNTER → 2019-12-24 | Outpatient (CLI) | payer BC ==
[2019-12-24 09:49] LABS: APPEARANCE, URINE CLEAR (CLEAR); BACTERIA, URINE AUTO NEGATIVE (NEGATIVE); BILIRUBIN, URINE AUTO NEGATIVE (NEGATIVE); BLOOD, URINE BLOOD NEGATIVE (NEGATIVE); COLOR, URINE YELLOW (YELLOW); GLUCOSE, URINE (UA) AUTO NEGATIVE (NEGATIVE); KETONE, URINE AUTO NEGATIVE (NEGATIVE); LEUKOCYTE ESTERASE, URINE AUTO NEGATIVE (NEGATIVE); NITRITE, URINE AUTO NEGATIVE (NEGATIVE); PROTEIN, URINE AUTO NEGATIVE (NEGATIVE); RBC, URINE AUTO 1 /HPF (0-3); SPECIFIC GRAVITY URINE AUTO 1.013 (1.002-1.035); SQUAMOUS EPITHELIAL CELL UR AU 0 /HPF (0-6); UROBILINOGEN, URINE AUTO 0.2 mg/dL (0.0-2.0); WBC, URINE AUTO 1 /HPF (0-3)
[2019-12-24 09:56] LABS: BASO # 0.1 10^3/uL (0.0-0.2); BASO % 0.7 % (0.0-1.0); EOS # 0.2 10^3/uL (0.0-0.5); HEMATOCRIT 35.2 % (42.0-52.0); HEMOGLOBIN 11.6 g/dl (13.5-17.5); LYMPH # 1.6 10^3/uL (1.5-5.0); LYMPH % 21.5 % (24.0-44.0); MEAN CORPUSCULAR VOLUME 97.2 fl (80.0-96.0); MONO # 0.9 10^3/uL (0.0-0.8); MONO % 11.1 % (0.0-5.0); NEUTROPHILS # 4.8 10^3/uL (1.5-8.5); NEUTROPHILS % 63.3 % (36.0-66.0); PLATELET COUNT, AUTOMATED 165 10^3/uL (150-450); RED BLOOD COUNT 3.62 10^6/uL (4.30-6.10); WHITE BLOOD COUNT 7.6 10^3/uL (4.0-10.0)
[2019-12-24 10:15] LABS: CALCIUM LEVEL 8.4 MG/DL (8.8-10.2); CHOLESTEROL RISK RATIO 3.72 (<5); CREATININE FOR GFR 1.41 MG/DL (0.70-1.30); GLOMERULAR FILTRATION RATE 53.5 (>49); POTASSIUM SERUM 4.8 MEQ/L (3.5-5.1)
[2019-12-24 10:34] LABS: CREATININE, URINE 84.7 MG/DL; MALB URINE SIEMENS 51.2 MG/L; MAU/CREAT RATIO 60.4 MCG/MG (0.0-30.0)
[2019-12-24 10:40] LABS: HEMOGLOBIN A1c 6.1 %
== END ==
LOC: M LAB 09:05
PROVIDERS: ATTEND Family Medicine
DX: E11.51 Type 2 diabetes mellitus with diabetic peripheral angiopathy without gangrene (principal); D64.9 Anemia, unspecified; R79.89 Other specified abnormal findings of blood chemistry; E78.5 Hyperlipidemia, unspecified

== ENCOUNTER → 2020-01-04 | Outpatient (REF) | payer BC | LOC: M LAB REF 17:25 | PROVIDERS: ATTEND Dermatology | DX: D04.9 Carcinoma in situ of skin, unspecified (principal) ==

== ENCOUNTER → 2020-02-05 | Outpatient (REF) | payer BC ==
[2020-02-05 11:34] LABS: ALBUMIN 4.1 GM/DL (3.2-5.2); CALCIUM LEVEL 9.4 MG/DL (8.8-10.2); FERRITIN 670 NG/ML (26-388); IRON (FE) 125 UG/DL (65-175); PERCENT SATURATION 35.9 % (19.7-50.0); TOTAL IRON BINDING CAPACITY 348 UG/DL (250-450)
[2020-02-05 11:41] LABS: FOLATE > 24.0 NG/ML; VITAMIN B12 LEVEL 461 PG/ML
== END ==
LOC: M SFHCLERA 08:45
PROVIDERS: ATTEND Family Medicine
DX: D64.9 Anemia, unspecified (principal); E83.51 Hypocalcemia

== ENCOUNTER → 2020-03-19 | Outpatient (REF) | payer BC ==
[2020-03-19 11:32] LABS: BASO # 0.1 10^3/uL (0.0-0.2); BASO % 0.7 % (0.0-1.0); EOS # 0.1 10^3/uL (0.0-0.5); EOS % 1.9 % (0.0-3.0); HEMATOCRIT 34.7 % (42.0-52.0); HEMOGLOBIN 11.8 g/dl (13.5-17.5); LYMPH # 1.8 10^3/uL (1.5-5.0); LYMPH % 24.6 % (24.0-44.0); MEAN CORPUSCULAR HEMOGLOBIN 32.5 pg (27.0-33.0); MEAN CORPUSCULAR VOLUME 95.6 fl (80.0-96.0); NEUTROPHILS # 4.2 10^3/uL (1.5-8.5); NEUTROPHILS % 58.4 % (36.0-66.0); PLATELET COUNT, AUTOMATED 177 10^3/uL (150-450); RED BLOOD COUNT 3.63 10^6/uL (4.30-6.10); WHITE BLOOD COUNT 7.3 10^3/uL (4.0-10.0)
[2020-03-19 12:13] LABS: ALBUMIN 3.8 GM/DL (3.2-5.2); BILIRUBIN,TOTAL 0.6 MG/DL (0.2-1.0); CALCIUM LEVEL 8.9 MG/DL (8.8-10.2); CREATININE FOR GFR 1.86 MG/DL (0.70-1.30); GLOMERULAR FILTRATION RATE 38.9 (>49); POTASSIUM SERUM 4.8 MEQ/L (3.5-5.1); TOTAL PROTEIN 7.3 GM/DL (6.4-8.2)
[2020-03-19 13:06] LABS: PERCENT SATURATION 34.5 % (19.7-50.0)
== END ==
LOC: M SFHCLERA 09:57
PROVIDERS: ATTEND Family Medicine
DX: R79.89 Other specified abnormal findings of blood chemistry (principal)

== ENCOUNTER → 2020-03-21 | Outpatient (REF) | payer BC ==
[2020-03-21 11:37] LABS: BASO % 0.6 % (0.0-1.0); EOS # 0.1 10^3/uL (0.0-0.5); EOS % 1.5 % (0.0-3.0); HEMATOCRIT 33.3 % (42.0-52.0); HEMOGLOBIN 11.2 g/dl (13.5-17.5); LYMPH # 1.7 10^3/uL (1.5-5.0); MEAN CORPUSCULAR HEMOGLOBIN 32.1 pg (27.0-33.0); MEAN CORPUSCULAR HGB CONC 33.6 g/dl (32.0-36.5); MEAN CORPUSCULAR VOLUME 95.4 fl (80.0-96.0); MONO # 0.9 10^3/uL (0.0-0.8); MONO % 12.5 % (0.0-5.0); NEUTROPHILS # 4.5 10^3/uL (1.5-8.5); NEUTROPHILS % 61.8 % (36.0-66.0); PLATELET COUNT, AUTOMATED 183 10^3/uL (150-450); RED BLOOD COUNT 3.49 10^6/uL (4.30-6.10); WHITE BLOOD COUNT 7.3 10^3/uL (4.0-10.0)
[2020-03-21 12:04] LABS: ERYTHROCYTE SEDIMENTATION RATE 39 mm/hr (0-20)
[2020-03-21 12:12] LABS: C REACTIVE PROTEIN QUANTITATIV < 0.30 MG/DL (0.00-0.30); FERRITIN 555 NG/ML (26-388)
[2020-03-24 12:50] LABS: BLOOD UREA NITROGEN 31 MG/DL (7-18); CALCIUM LEVEL 8.7 MG/DL (8.8-10.2); CARBON DIOXIDE LEVEL 21 MEQ/L (21-32); CHLORIDE LEVEL 106 MEQ/L (98-107); CREATININE FOR GFR 1.65 MG/DL (0.70-1.30); GLOMERULAR FILTRATION RATE 44.7 (>49); GLUCOSE, FASTING 139 MG/DL (70-100); POTASSIUM SERUM 4.6 MEQ/L (3.5-5.1); SODIUM LEVEL 140 MEQ/L (136-145)
== END ==
LOC: M SFHCLERA 09:53
PROVIDERS: ATTEND Family Medicine
DX: R79.89 Other specified abnormal findings of blood chemistry (principal)

== ENCOUNTER → 2020-03-26 | Outpatient (CLI) | payer BC ==
--- NOTE | 2020-03-27 06:49 | REP ---
Clinical: History of bilateral bypass graft with pain. Technique: Real time minaya scale and color Doppler evaluation of the bilateral lower extremity arterial vasculature using linear high frequency transducer. Findings: Right lower extremity demonstrates a patent femoral - popliteal bypass graft with reversed flow noted at the level of the popliteal artery anastomoses. Extensive atheromatous plaquing is noted at the common femoral artery significant stenosis at the origin of the profunda. The superficial femoral artery is occluded and the calf vessels demonstrate extensive calcified atherosclerotic changes. Left lower extremity demonstrates a patent femoral - popliteal bypass graft. There appears to be moderate stenosis of the common femoral artery proximal to the graft with primarily monophasic with arterial wave patterns noted through the left lower extremity. Superficial femoral artery is occluded. Peak systolic velocities (cm/sec) RIGHT LEFT Common femoral artery 101 (triphasic) 273 (monophasic) Profunda femoris 358 (monophasic) 91 (monophasic) SFA (proximal) 159 occluded SFA (mid) occluded occluded SFA (distal) occluded occluded Popliteal artery 79 (monophasic) 116 (monophasic) TIMO (prox.) 50 (biphasic) 35 (monophasic) Tibioperoneal trunk 60 (monophasic) 93 (biphasic) FEDERAL AGENT (prox.) 46 (monophasic) 38 (monophasic) FEDERAL AGENT (distal) 57 (biphasic) 76 (biphasic) TIMO (distal) 51 (biphasic) 57 (biphasic) Bypass graft (proximal) 157 (biphasic) 189 (monophasic) Bypass graft (mid) 75 (biphasic) 70 (monophasic) Bypass graft (distal) 116 (biphasic) 126 (monophasic) Impression: 1. Extensive Atheromatous changes as described above. 2. Patent bilateral bypass graft noted. Electronically Signed by Srinivasa Mondragon MD 03/27/2020 06:41 A
== END ==
LOC: M RAD 11:30
PROVIDERS: ATTEND Surgery Vascular Surgery
DX: I77.1 Stricture of artery (principal); Z48.812 Encounter for surgical aftercare following surgery on the circulatory system

== ENCOUNTER 2020-06-06 10:25 | Day surgery (SDC) | payer BC ==
[~2020-06-06 10:25] MED LIST changes: +AMLO1TAB24 PO; -AMLO5TAB6 PO; +PANT40TA29 PO; -PANT40TA3 PO; +propofoL 200 MG/20 ML VIAL ONE
[2020-06-06] MEDS ORDERED: fentaNYL 100 MCG/2 ML INJECTION (J3010) ONE (10:51)
== END 2020-06-06 11:40 | disposition home or self-care (01) ==
LOC: M SDC 10:25
PROVIDERS: ATTEND Internal Medicine Gastroenterology
DX: Z12.11 Encounter for screening for malignant neoplasm of colon (principal); Z86.010 Personal history of colon polyps; D12.5 Benign neoplasm of sigmoid colon; D12.4 Benign neoplasm of descending colon; K57.30 Diverticulosis of large intestine without perforation or abscess without bleeding; K64.8 Other hemorrhoids; I73.9 Peripheral vascular disease, unspecified; E11.69 Type 2 diabetes mellitus with other specified complication; Z79.84 Long term (current) use of oral hypoglycemic drugs; Z79.899 Other long term (current) drug therapy; Z88.8 Allergy status to other drugs, medicaments and biological substances
CPT/HCPCS: 45385; 88305; J3010

== ENCOUNTER → 2020-06-11 | Outpatient (REF) | payer BC ==
[~2020-06-11] MED LIST changes: -propofoL 200 MG/20 ML VIAL ONE
== END ==
LOC: M LAB REF 16:28
PROVIDERS: ATTEND Physician Assistant
DX: D23.5 Other benign neoplasm of skin of trunk (principal)

== ENCOUNTER → 2020-07-15 | Outpatient (CLI) | payer BC ==
[2020-07-15 09:08] LABS: APPEARANCE, URINE CLEAR (CLEAR); BACTERIA, URINE AUTO NEGATIVE (NEGATIVE); BILIRUBIN, URINE AUTO NEGATIVE (NEGATIVE); BLOOD, URINE BLOOD NEGATIVE (NEGATIVE); COLOR, URINE YELLOW (YELLOW); GLUCOSE, URINE (UA) AUTO NEGATIVE (NEGATIVE); KETONE, URINE AUTO NEGATIVE (NEGATIVE); LEUKOCYTE ESTERASE, URINE AUTO NEGATIVE (NEGATIVE); NITRITE, URINE AUTO NEGATIVE (NEGATIVE); PROTEIN, URINE AUTO NEGATIVE (NEGATIVE); RBC, URINE AUTO 2 /HPF (0-3); SQUAMOUS EPITHELIAL CELL UR AU 1 /HPF (0-6); UROBILINOGEN, URINE AUTO 0.2 mg/dL (0.0-2.0); WBC, URINE AUTO 1 /HPF (0-3)
[2020-07-15 09:11] LABS: BASO # 0.1 10^3/uL (0.0-0.2); BASO % 0.7 % (0.0-1.0); EOS # 0.1 10^3/uL (0.0-0.5); EOS % 2.1 % (0.0-3.0); HEMATOCRIT 34.1 % (42.0-52.0); HEMOGLOBIN 11.4 g/dl (13.5-17.5); LYMPH # 1.7 10^3/uL (1.5-5.0); LYMPH % 25.1 % (24.0-44.0); MEAN CORPUSCULAR HEMOGLOBIN 32.7 pg (27.0-33.0); MEAN CORPUSCULAR HGB CONC 33.4 g/dl (32.0-36.5); MEAN CORPUSCULAR VOLUME 97.7 fl (80.0-96.0); MONO # 0.8 10^3/uL (0.0-0.8); MONO % 12.4 % (0.0-5.0); NEUTROPHILS % 59.3 % (36.0-66.0); PLATELET COUNT, AUTOMATED 172 10^3/uL (150-450); RED BLOOD COUNT 3.49 10^6/uL (4.30-6.10); WHITE BLOOD COUNT 6.7 10^3/uL (4.0-10.0)
[2020-07-15 09:29] LABS: CREATININE FOR GFR 1.35 MG/DL (0.70-1.30); GLOMERULAR FILTRATION RATE 56.3 (>49); POTASSIUM SERUM 4.4 MEQ/L (3.5-5.1)
[2020-07-15 09:40] LABS: CREATININE, URINE 63.1 MG/DL; CREATININE,RANDOM URINE 63.1 MG/DL; MALB URINE SIEMENS 26.3 MG/L; MAU/CREAT RATIO 41.6 MCG/MG (0.0-30.0)
[2020-07-15 14:34] LABS: HEMOGLOBIN A1c 5.9 %
== END ==
LOC: M LAB 08:33
PROVIDERS: ATTEND Family Medicine
DX: E11.9 Type 2 diabetes mellitus without complications (principal)

== ENCOUNTER → 2020-10-07 | Outpatient (CLI) | payer BC ==
--- NOTE | 2020-10-07 14:26 | REP ---
INDICATION: ATHEROSCLEROSIS PERLITA LEGS,CAROTID OCCLUSI/STENOSIS. COMPARISON: 03/26/2020. FINDINGS: Right lower extremity: Brachial peak systole: -- mmHg Dorsalis pedis peak systole: -- mmHg IMPLEMENTATION CONSULTANT peak systole: -- mmHg SATNAM: -- FRUIT EXPRESS AGENT: 122 velocity, biphasic phasicity Profunda: 62 velocity, monophasic phasicity SFA prox: 129 velocity, monophasic phasicity SFA mid: Occluded velocity, -- phasicity SFA dist: Occluded velocity, -- phasicity Pop: Reversed velocity, -- phasicity TIMO prox: 67 velocity, biphasic phasicity Tib/P tr: -- velocity, -- phasicity IMPLEMENTATION CONSULTANT pr: 60 velocity, monophasic phasicity IMPLEMENTATION CONSULTANT dst: 81 velocity, biphasic phasicity TIMO dst: 43 velocity, biphasic phasicity Brachial peak systole: -- mmHg Dorsalis pedis peak systole: -- mmHg IMPLEMENTATION CONSULTANT peak systole: -- mmHg SATNAM: -- FRUIT EXPRESS AGENT: 182 velocity, biphasic phasicity Profunda: 118 velocity, monophasic phasicity SFA prox: 50 velocity, bidirectional phasicity SFA mid: Occluded velocity, -- phasicity SFA dist: Occluded velocity, -- phasicity Pop: Reversed velocity, -- phasicity TIMO prox: 63 velocity, biphasic phasicity Tib/P tr: -- velocity, -- phasicity IMPLEMENTATION CONSULTANT pr: 37 velocity, biphasic phasicity IMPLEMENTATION CONSULTANT dst: 79 velocity, monophasic phasicity TIMO dst: 65 velocity, monophasic phasicity Right fem-pop bypass graft: Proximal: 167 biphasic Mid: 73 biphasic Distal 79 biphasic Left fem-pop bypass graft: Proximal: 170 biphasic Mid 80 monophasic Distal 120 monophasic IMPRESSION: Heavily calcified common femoral arteries bilaterally. The fem-pop bypass grafts are patent bilaterally. There is no significant stenosis. The calf [place] arteries are heavily calcified. The findings are essentially unchanged from the comparison study. <Electronically signed by Sergo Núñez > 10/07/20 [id number]
--- NOTE | 2020-10-07 14:41 | REP ---
INDICATION: ATHEROSCLEROSIS PERLITA LEGS,CAROTID OCCLUSI/STENOSIS COMPARISON: None. TECHNIQUE: Real-time ultrasound evaluation and duplex Doppler interrogation of the extracranial carotid vasculature is performed. FINDINGS: Antegrade flow is observed in both vertebral arteries. Right carotid: The right common carotid artery shows diffuse intimal thickening but is otherwise unremarkable. There moderate mixed plaquing in the right carotid bulb and proximal ICA on two-dimensional scanning. Color flow and spectral Doppler interrogation on the right show a significant turbulent flow in the bulb and ICA. Elevated systolic ICA velocity period. Velocity chart right carotid: Right CCA PSV: 91 cm/S Right ICA PSV: 165 cm/S Right ICA EDV: 32 cm/S Right ECA PSV: 172 cm/S Right ICA/CCA ratio: 1.8 Left carotid: The left common carotid artery shows diffuse intimal thickening but is otherwise unremarkable. There is moderate mixed plaquing in the left carotid bulb and proximal ICA on two-dimensional scanning. Color flow and spectral Doppler interrogation are unremarkable on the left except for some turbulent flow in the proximal ICA. Velocity chart left carotid: Left CCA PSV: 115 cm/S Left ICA PSV: 113 cm/S Left ICA EDV: 25 cm/S Left ECA PSV: 132 cm/S Left ICA/CCA ratio: 1.0 IMPRESSION: 50-69% category narrowing in the right internal carotid artery by Doppler velocity criteria. Heavily calcified moderate plaquing. Less than 50% category narrowing in the left ICA by Doppler velocity criteria. Heavily calcified moderate plaquing. <Electronically signed by Casey Razo > 10/07/20 [id number]
== END ==
LOC: M RAD 12:05
DX: I65.23 Occlusion and stenosis of bilateral carotid arteries (principal); I70.6 Atherosclerosis of nonbiological bypass graft(s) of the extremities; Z48.812 Encounter for surgical aftercare following surgery on the circulatory system

== ENCOUNTER → 2020-10-23 | Outpatient (CLI) | payer BC ==
[2020-10-23 11:33] LABS: ALBUMIN 4.1 GM/DL (3.2-5.2); BILIRUBIN,TOTAL 0.6 MG/DL (0.2-1.0); CALCIUM LEVEL 9.6 MG/DL (8.8-10.2); CHOLESTEROL RISK RATIO 3.416 (<5); CREATININE FOR GFR 1.59 MG/DL (0.70-1.30); GLOMERULAR FILTRATION RATE 46.6 (>49); POTASSIUM SERUM 5.3 MEQ/L (3.5-5.1); TOTAL PROTEIN 7.9 GM/DL (6.4-8.2)
== END ==
LOC: M LAB 10:32
PROVIDERS: ATTEND Nurse Practitioner Family
DX: E78.00 Pure hypercholesterolemia, unspecified (principal)

== ENCOUNTER → 2020-10-23 | Outpatient (CLI) | payer BC ==
[2020-10-23 11:25] LABS: HEMOGLOBIN A1c 5.5 %
[2020-10-23 11:33] LABS: CALCIUM LEVEL 9.2 MG/DL (8.8-10.2); CHOLESTEROL RISK RATIO 3.482 (<5); CREATININE FOR GFR 1.56 MG/DL (0.70-1.30); GLOMERULAR FILTRATION RATE 47.6 (>49); POTASSIUM SERUM 5.4 MEQ/L (3.5-5.1)
== END ==
LOC: M LAB 10:30
PROVIDERS: ATTEND Family Medicine
DX: E11.51 Type 2 diabetes mellitus with diabetic peripheral angiopathy without gangrene (principal)

== ENCOUNTER → 2020-10-31 | Outpatient (CLI) | payer BC ==
[2020-10-31 11:22] LABS: CALCIUM LEVEL 9.2 MG/DL (8.8-10.2); CREATININE FOR GFR 1.34 MG/DL (0.70-1.30); GLOMERULAR FILTRATION RATE 56.8 (>49); POTASSIUM SERUM 4.4 MEQ/L (3.5-5.1)
== END ==
LOC: M LAB 10:03
PROVIDERS: ATTEND Family Medicine
DX: R79.89 Other specified abnormal findings of blood chemistry (principal)

== ENCOUNTER → 2020-12-01 | Outpatient (REF) | payer BC ==
[~2020-12-01] MED LIST changes: -LISI-538 PO; +LISI20TA33 PO
== END ==
LOC: M LAB REF 12:06
PROVIDERS: ATTEND Surgery
DX: E11.621 Type 2 diabetes mellitus with foot ulcer (principal)

== ENCOUNTER → 2020-12-02 | Outpatient (POV) | payer BC ==
--- NOTE | 2020-12-03 12:13 | IRCOV ---
[facility] IR Consult Office Visit IR Consult Office Visit DATE: Dec 02, 2020 Patient agreed to this telephone consultation. I spent 30 minutes reviewing patient's records, imaging and talking to the patient. REASON FOR CONSULTATION/CHIEF COMPLAINT: Nonhealing left lower extremity ulcer. HISTORY OF PRESENT ILLNESS: 65-year-old diabetic male with nonhealing left lower extremity ulcer. Patient states he had severe bilateral lower extremity intermittent claudication and rest pain in 2017 at which time he underwent bilateral femoropopliteal Pop bypass grafting in 2017. His ulcer and pain improves after this. He's had prior right fifth toe amputation. No left lower extremity amputations. Over the last few months, he described a callus developed over the bony prominence on his left lower extremity. This then progressed to an ulcer. He is under the care of wound care. He denies current rest pain. He states his feet feel warm and the color is good. He denies swelling. He denies chest pain, shortness of breath, orthopnea or paroxysmal nocturnal dyspnea. He is an ex-smoker and quit 20 years ago. ALLERGIES: Please see below. HOME MEDICATIONS: Please see below. PAST MEDICAL HISTORY: Right lower extremity DVT 2017 PAD Diabetes Hypercholesterolemia Hypertension Right foot ulcer Sepsis Right toe amputation Charcot foot PAST SURGICAL HISTORY: Popliteal bypass 2017 Cataract FAMILY HISTORY: Noncontributory. SOCIAL HISTORY: Ex-smoker. Quit 20 years ago. Denies alcohol or drugs. REVIEW OF SYSTEMS: Otherwise negative. PHYSICAL EXAMINATION: No video on patient side. LABORATORY DATA: No recent labs. Imaging: I personally reviewed the lower extremity ultrasound performed September 2020. Patent left lower extremity femoropopliteal bypass. Monophasic waveforms below the knee. ASSESSMENT/PLAN: 65-year-old male arteriopath with nonhealing left lower extremity ulcer. Patient would benefit from angiography to look for areas of stenosis which may be treated with angioplasty and/or stenting. We discussed the risks and benefits of the procedure and patient would like to proceed. We'll schedule the patient for left lower extremity angiogram and intervention. Thank you for this referral. CC Dr. Trivedi Allergies Coded Allergies: No Known Allergies (Unverified , 02/06/17) Home Medications Scheduled Atorvastatin Calcium (Atorvastatin Calcium), 20 MG PO QHS Carvedilol (Carvedilol), 12.5 MG PO BID Clindamycin Hcl (Cleocin HCl), 300 MG PO Q6H Gabapentin (Gabapentin), 200 MG PO ASDIRECTED Lisinopril (Lisinopril), 20 MG PO DAILY Metformin HCl (Metformin HCl), 500 MG PO BID, (Reported) Multivitamin (Daily Ben), 1 TAB PO DAILY, (Reported) Pantoprazole Sodium (Protonix), 40 MG PO DAILY, (Reported) Rivaroxaban (Xarelto), 15 MG PO BID@08,18 Timolol Maleate (Timolol Maleate), 1 DROP OU QAM Miscellaneous Medications Potassium Chloride (Klor-Con M20), 20 MEQ FT, (Reported) MIGUEL AMIN MD Dec 03, 2020 12:13
== END ==
LOC: M TMIRPOV 08:15
PROVIDERS: ATTEND Radiology Diagnostic Radiology
DX: I70.245 Atherosclerosis of native arteries of left leg with ulceration of other part of foot (principal); E11.622 Type 2 diabetes mellitus with other skin ulcer; L97.529 Non-pressure chronic ulcer of other part of left foot with unspecified severity; E78.00 Pure hypercholesterolemia, unspecified; I10 Essential (primary) hypertension; Z79.84 Long term (current) use of oral hypoglycemic drugs; Z79.899 Other long term (current) drug therapy; Z89.421 Acquired absence of other right toe(s)

== ENCOUNTER → 2020-12-22 | Outpatient (CLI) | payer BC ==
[~2020-12-22] MED LIST changes: +CHLO125TA PO; +DOXY1CAP60 PO; +ISOVUE-300 61% 50ML VIAL As Ordered ONE; +LIDOCAINE 1% MDV 20ML VIAL As Ordered ONE; +LISI40TA4 PO; +METO100T5 PO; +MIDAZOLAM INJ 2MG/2ML VIAL (J2250 PER 1MG) As Ordered ONE; +NORV5TAB PO; +PLAV1TAB2 PO; +PROMETHAZINE INJ 25 MG/ML VIAL (J2550) As Ordered ONE; +SPIR-10 PO; +diphenhydrAMINE 50MG/ML VIAL (J1200) As Ordered ONE; +fentaNYL 100 MCG/2 ML INJECTION (J3010) As Ordered ONE
[2020-12-22 08:23] LABS: INR 1.01; PROTHROMBIN TIME 13.5 SECONDS (12.5-14.3)
[2020-12-22 08:24] LABS: HEMATOCRIT 30.6 % (42.0-52.0); HEMOGLOBIN 9.9 g/dl (13.5-17.5); MEAN CORPUSCULAR HEMOGLOBIN 30.6 pg (27.0-33.0); MEAN CORPUSCULAR HGB CONC 32.4 g/dl (32.0-36.5); MEAN CORPUSCULAR VOLUME 94.4 fl (80.0-96.0); PLATELET COUNT, AUTOMATED 176 10^3/uL (150-450); RED BLOOD COUNT 3.24 10^6/uL (4.30-6.10); WHITE BLOOD COUNT 8.8 10^3/uL (4.0-10.0)
[2020-12-22 08:26] LABS: CALCIUM LEVEL 7.9 MG/DL (8.8-10.2); CREATININE FOR GFR 1.49 MG/DL (0.70-1.30); GLOMERULAR FILTRATION RATE 50.1 (>49); POTASSIUM SERUM 4.1 MEQ/L (3.5-5.1)
--- NOTE | 2020-12-22 08:38 | IRHP ---
[facility] IR Pre-Procedure H & P General Date of Service: Dec 22, 2020 Procedure: Same Day Surgery Interval History and Physical I have seen the patient and reviewed last H & P performed within 30 days. There is no significant interval change. History of Present Illness Chief Complaint The patient is a 65-year-old male admitted with a reason for visit of PAD. PRE-PROCEDURE DIAGNOSIS: PAD HEART: normal rate. LUNGS: normal breathing at rest. ASA Classification ASA Classification: III-Severe systemic dis. Mallampati Score: II NPO: Yes Problems with prior sedation: No Obstructive Sleep Apnea: No Plan moderate sedation Allergies Coded Allergies: heparin (Verified Allergy, Severe, thrombocytopenia, 12/17/20) Home Medications Scheduled Amlodipine Besylate (Norvasc), 10 MG PO DAILY, (Reported) Atorvastatin Calcium (Atorvastatin Calcium), 20 MG PO QHS Bimatoprost (Lumigan), 1 DROP OU QPM, (Reported) Carvedilol (Carvedilol), 12.5 MG PO BID Chlorthalidone (Chlorthalidone), 25 MG PO DAILY, (Reported) Clopidogrel Bisulfate (Plavix), 75 MG PO DAILY, (Reported) Lisinopril (Lisinopril), 40 MG PO QHS, (Reported) Metformin HCl (Metformin HCl), 500 MG PO BID, (Reported) Metoprolol Tartrate (Metoprolol Tartrate), 100 MG PO QHS, (Reported) Multivitamin (Daily Ben), 1 TAB PO DAILY, (Reported) Pantoprazole Sodium (Protonix), 40 MG PO DAILY, (Reported) Spironolactone (Spironolactone), 25 MG PO DAILY, (Reported) Timolol Maleate (Timolol Maleate), 1 DROP OU QAM Discontinued Medications Clindamycin Hcl (Cleocin HCl), 300 MG PO Q6H Discontinued Reason: Pt states not taking Doxycycline Monohydrate (Doxycycline), 1 CAP PO BID, (Reported) Discontinued Reason: Pt states not taking Gabapentin (Gabapentin), 200 MG PO ASDIRECTED Discontinued Reason: Pt states not taking Lisinopril (Lisinopril), 20 MG PO DAILY Discontinued Reason: Re-entering as new Potassium Chloride (Klor-Con M20), 20 MEQ FT, (Reported) Discontinued Reason: Pt states not taking Rivaroxaban (Xarelto), 15 MG PO BID@,18 Discontinued Reason: Pt states not taking VS, I&O, 24H, Carol Vital Signs/I&O Vital Signs Date Time Temp Pulse Resp B/P (MAP) Pulse Ox O2 Delivery O2 Flow Rate FiO2 12/22/20 07:25 98.7 66 16 99 Room Air Laboratory Data 24H LABS Laboratory Tests 2 12/22/20 07:45: Nucleated Red Blood Cells % (auto) 0.0, Prothrombin Time 13.5, Prothromb Time International Ratio 1.01, Anion Gap 8, Glomerular Filtration Rate 50.1, Calcium Level 7.9L CBC/BMP Laboratory Tests 12/22/20 07:45 MIGUEL AMIN MD Dec 22, 2020 08:38
[2020-12-22 15:40] VITALS: BP 153/65
--- NOTE | 2020-12-24 12:26 | POST-OPPD ---
Postoperative Procedure Note Date Of Procedure: Dec 22, 2020 Time Of Procedure: 16:00 IR Left leg angiogram IR Left Below-knee runoff arteriogram. IR Ultrasound-guided right common femoral artery access. IR Moderate sedation. Clinical Information:Left lower extremity nonhealing wounds. Physician: Dr. Carvajal. Procedure: The patient was advised of the benefits, risks, and alternatives of the procedure and informed consent was obtained. A time out was performed with verification of the patient's name, MRN, site of procedure, and type of procedure to be performed. The patient was positioned in the supine position on the angiographic table. The site was prepped and draped in the usual sterile fashion. Moderate sedation was performed by the physician including the presence of an independent trained RN, who assisted in monitoring the patient's level of consciousness and physiological status. Following the administration of fen tanyl and Versed, the physician spent 60 minutes of continuous [id number] time with the patient. A microfilm technician radiograph reveals bilateral common iliac stents. Surgical clips in bilateral proximal thighs. Ultrasound of the right groin demonstrates patent right common femoral artery with bypass graft arising off it. Lidocaine was used for local anesthesia. The right common femoral artery was accessed, under ultrasound guidance with a microintroducer set. A short 0.018" [place] wire was inserted and the needle was exchanged for a 4 Fr microintroducer sheath. The guidewire and dilator were removed and a 0.035" Bents[place] wire was placed into the abdominal aorta. A 6 Fr sheath was placed over the wire. An omni flush catheter was advanced over the wire under fluoroscopic guidance and used to catheterize the infrarenal abdominal aorta. A pelvic arteriogram was performed. This demonstrates atherosclerotic infrarenal abdominal aorta. Patent bilateral common iliac arteries with right greater than left iliac atherosclerotic disease. There is IntraStent stenosis in the right common iliac artery but good flow through the left common iliac and external iliac artery. The left internal iliac artery is occluded by the external iliac stent. The catheter in conjunction with the wire was used to gain up and over access into the left external iliac artery. The catheter was exchanged over the wire f or a glide cath. The catheter in conjunction with the wire was used under fluoroscopic guidance to catheterize the left common femoral artery. A left leg angiogram was performed. This demonstrates patent left common femoral artery. Patent bypass graft arising off the left common femoral artery. Patent bypass graft throughout the thigh. Angiography further down the left leg was performed and this demonstrates the bypass graft remains patent throughout the mid and distal thigh to its distal anastomosis at the popliteal artery. Patent popliteal artery. A below knee run off arteriogram was performed on this demonstrates patent anter ior tibial and posterior tibial artery and peroneal artery with 2 vessel runoff into the left foot and a complete arch. No significant stenosis or occlusion. The patient tolerated the procedure well and was returned to the PRU in stable condition. EBL: < 5 mL. Complications:None. Impression: 1. Left leg angiogram demonstrates patent inflow, bypass graft and outflow without significant stenosis or occlusion. 2. Patent anterior and posterior tibial runoff into the left foot with complete pedal arch. Patent peroneal artery. Thank you for this referral. Cc Dr. Trivedi. IMGUEL CARVAJAL MD Dec 24, 2020 12:26
== END ==
LOC: M IRPRO 07:20 → EEVIPCON 08:30
PROVIDERS: ATTEND Radiology Diagnostic Radiology
DX: I70.0 Atherosclerosis of aorta (principal); I73.9 Peripheral vascular disease, unspecified; Z79.899 Other long term (current) drug therapy; Z88.8 Allergy status to other drugs, medicaments and biological substances; Z95.828 Presence of other vascular implants and grafts
CPT/HCPCS: 36246; 75630; 75774; 80048; 85027; 85610; 99152; 99153; C1769; C1887; C1894; J1200; J1644; J2250; J3010; Q9967

== ENCOUNTER → 2021-01-20 | Outpatient (POV) | payer BC ==
[~2021-01-20] MED LIST changes: -ISOVUE-300 61% 50ML VIAL As Ordered ONE; -LIDOCAINE 1% MDV 20ML VIAL As Ordered ONE; -MIDAZOLAM INJ 2MG/2ML VIAL (J2250 PER 1MG) As Ordered ONE; -PROMETHAZINE INJ 25 MG/ML VIAL (J2550) As Ordered ONE; -diphenhydrAMINE 50MG/ML VIAL (J1200) As Ordered ONE; -fentaNYL 100 MCG/2 ML INJECTION (J3010) As Ordered ONE
--- NOTE | 2021-01-23 12:01 | IRPN ---
[facility] IR Progress Note IR Progress Note DATE: Jan 20, 2021 Patient agreed to this telephone follow up. I spent 5 minutes talking to the patient. FOLLOW-UP: Status post left lower extremity angiogram for non healing ulcers. Angiogram demonstrated patent inflow and outflow to the left foot. Patient's reports the groin access site has healed up without bruising, mass or swelling. ON EXAMINATION: No video on patient side. IMPRESSION: Status post negative left lower extremity angiogram, patient doing well. Access site healed. Continue wound care. Thank you for this referral Allergies Coded Allergies: heparin (Verified Allergy, Severe, thrombocytopenia, 12/17/20) MIGUEL AMIN MD Jan 23, 2021 12:00
== END ==
LOC: M TMIRPOV 14:13
PROVIDERS: ATTEND Radiology Diagnostic Radiology
DX: Z09 Encounter for follow-up examination after completed treatment for conditions other than malignant neoplasm (principal); M79.605 Pain in left leg

== ENCOUNTER → 2021-02-26 | Outpatient (CLI) | payer BC ==
[2021-02-26 10:39] LABS: BASO # 0.1 10^3/uL (0.0-0.2); BASO % 0.7 % (0.0-1.0); EOS # 0.1 10^3/uL (0.0-0.5); EOS % 1.7 % (0.0-3.0); HEMATOCRIT 35.4 % (42.0-52.0); HEMOGLOBIN 11.4 g/dl (13.5-17.5); LYMPH # 1.8 10^3/uL (1.5-5.0); MEAN CORPUSCULAR HEMOGLOBIN 31.1 pg (27.0-33.0); MEAN CORPUSCULAR HGB CONC 32.2 g/dl (32.0-36.5); MEAN CORPUSCULAR VOLUME 96.5 fl (80.0-96.0); MONO # 0.8 10^3/uL (0.0-0.8); MONO % 9.9 % (2.0-8.0); NEUTROPHILS # 5.4 10^3/uL (1.5-8.5); NEUTROPHILS % 65.5 % (36.0-66.0); PLATELET COUNT, AUTOMATED 164 10^3/uL (150-450); RED BLOOD COUNT 3.67 10^6/uL (4.30-6.10); WHITE BLOOD COUNT 8.2 10^3/uL (4.0-10.0)
== END ==
LOC: M LAB 10:03
PROVIDERS: ATTEND Family Medicine
DX: D64.9 Anemia, unspecified (principal)

== ENCOUNTER → 2021-05-14 | Outpatient (CLI) | payer BC ==
[2021-05-14 09:23] LABS: BASO % 0.4 % (0.0-1.0); EOS # 0.2 10^3/uL (0.0-0.5); EOS % 1.7 % (0.0-3.0); HEMATOCRIT 33.6 % (42.0-52.0); HEMOGLOBIN 10.9 g/dl (13.5-17.5); LYMPH # 1.9 10^3/uL (1.5-5.0); LYMPH % 20.1 % (24.0-44.0); MEAN CORPUSCULAR HEMOGLOBIN 31.3 pg (27.0-33.0); MEAN CORPUSCULAR HGB CONC 32.4 g/dl (32.0-36.5); MEAN CORPUSCULAR VOLUME 96.6 fl (80.0-96.0); MONO # 0.9 10^3/uL (0.0-0.8); MONO % 9.8 % (2.0-8.0); NEUTROPHILS # 6.2 10^3/uL (1.5-8.5); NEUTROPHILS % 67.7 % (36.0-66.0); PLATELET COUNT, AUTOMATED 200 10^3/uL (150-450); RED BLOOD COUNT 3.48 10^6/uL (4.30-6.10); WHITE BLOOD COUNT 9.2 10^3/uL (4.0-10.0)
[2021-05-14 10:04] LABS: CREATININE, URINE 88.4 MG/DL; MALB URINE SIEMENS 5.4 MG/L; MAU/CREAT RATIO 6.1 MCG/MG (0.0-30.0)
[2021-05-14 10:21] LABS: HEMOGLOBIN A1c 5.9 %
[2021-05-14 10:33] LABS: CALCIUM LEVEL 9.3 MG/DL (8.8-10.2); CHOLESTEROL RISK RATIO 2.941 (<5); CREATININE FOR GFR 1.54 MG/DL (0.70-1.30); GLOMERULAR FILTRATION RATE 48.2 (>49); POTASSIUM SERUM 6.4 MEQ/L (3.5-5.1)
[2021-05-14 13:16] LABS: CALCIUM LEVEL 8.6 MG/DL (8.8-10.2); CREATININE FOR GFR 1.6 MG/DL (0.70-1.30); GLOMERULAR FILTRATION RATE 46.1 (>49); POTASSIUM SERUM 5.9 MEQ/L (3.5-5.1)
== END ==
LOC: M LAB 08:37
PROVIDERS: ATTEND Family Medicine
DX: E11.51 Type 2 diabetes mellitus with diabetic peripheral angiopathy without gangrene (principal); D64.9 Anemia, unspecified; E87.5 Hyperkalemia

== ENCOUNTER → 2021-05-18 | Outpatient (CLI) | payer BC ==
[2021-05-18 09:13] LABS: CREATININE FOR GFR 1.65 MG/DL (0.70-1.30); GLOMERULAR FILTRATION RATE 44.5 (>49); POTASSIUM SERUM 5.7 MEQ/L (3.5-5.1)
== END ==
LOC: M LAB 08:12
PROVIDERS: ATTEND Family Medicine
DX: E87.5 Hyperkalemia (principal)

== ENCOUNTER → 2021-06-05 | Outpatient (REF) | payer BC | LOC: M LAB REF 17:01 | PROVIDERS: ATTEND Internal Medicine Nephrology | DX: E83.42 Hypomagnesemia (principal) ==

== ENCOUNTER → 2021-07-08 | Outpatient (REF) | payer BC ==
[~2021-07-08] MED LIST changes: -KLOR20TA42 FT; +POTA-141 FT
[2021-07-08 14:36] LABS: FERRITIN 375 NG/ML (26-388); FOLATE > 24.0 NG/ML; IRON (FE) 94 UG/DL (65-175); MAGNESIUM LEVEL 1.5 MG/DL (1.8-2.4); PERCENT SATURATION 37.2 % (19.7-50.0); TOTAL IRON BINDING CAPACITY 253 UG/DL (250-450); VITAMIN B12 LEVEL 503 PG/ML
== END ==
LOC: M LAB REF 12:49
PROVIDERS: ATTEND Internal Medicine Nephrology
DX: D64.9 Anemia, unspecified (principal); N18.31 Chronic kidney disease, stage 3a; E11.22 Type 2 diabetes mellitus with diabetic chronic kidney disease; I12.9 Hypertensive chronic kidney disease with stage 1 through stage 4 chronic kidney disease, or unspecified chronic kidney disease

== ENCOUNTER 2021-08-14 13:37 | Outpatient (CLI) | payer BC ==
[~2021-08-14] VITALS: Ht 167.6 cm; Wt 81.1 kg
[~2021-08-14 13:37] MED LIST changes: +ALBUTEROL 90 MCG/ACT 8GM HFA INHALER INH PRN; +ALBUTEROL SULFATE 2.5 MG/0.5 ML INH NEB SOLN INH PRN; -DOXY1CAP60 PO; +DOXY50CA51 PO; +EPINEPHrine INJ 1 MG/ML 1ML AMP IM PRN; +NS 1,000 ML IV SCH; +diphenhydrAMINE 50MG/ML VIAL (J1200) IV PRN; +methylPREDNISolone 125MG 2ML VIAL IV PRN
[2021-08-14 14:18] VITALS: BP 151/67
[2021-08-14] MEDS ORDERED: ACETAMINOPHEN TAB 650MG DOSE (2X325MG) PO ONE (14:30)
[2021-08-14 14:46] VITALS: BP 157/68
[2021-08-14] MEDS ORDERED: BAMLANIVIMAB 700 MG, ETESEVIMAB 1,400 MG in NS 250 ML IV ONE (15:00)
[2021-08-14 15:20] VITALS: BP 156/68
[2021-08-14 16:18] VITALS: BP 140/65
== END 2021-08-14 16:20 | disposition home or self-care (01) ==
LOC: M OPCLI4PR 13:37
PROVIDERS: ATTEND Family Medicine
DX: U07.1 COVID-19 (principal); Z88.8 Allergy status to other drugs, medicaments and biological substances

== ENCOUNTER → 2021-09-08 | Outpatient (REF) | payer BC ==
[~2021-09-08] MED LIST changes: -ALBUTEROL 90 MCG/ACT 8GM HFA INHALER INH PRN; -ALBUTEROL SULFATE 2.5 MG/0.5 ML INH NEB SOLN INH PRN; -EPINEPHrine INJ 1 MG/ML 1ML AMP IM PRN; -NS 1,000 ML IV SCH; -diphenhydrAMINE 50MG/ML VIAL (J1200) IV PRN; -methylPREDNISolone 125MG 2ML VIAL IV PRN
== END ==
LOC: M LAB REF 12:58
PROVIDERS: ATTEND Nurse Practitioner Family
DX: E83.42 Hypomagnesemia (principal)

== ENCOUNTER → 2021-09-21 | Outpatient (CLI) | payer BC | LOC: M RAD 12:20 | PROVIDERS: ATTEND Surgery Vascular Surgery | DX: I65.23 Occlusion and stenosis of bilateral carotid arteries (principal); I70.513 Atherosclerosis of nonautologous biological bypass graft(s) of the extremities with intermittent claudication, bilateral legs; Z95.820 Peripheral vascular angioplasty status with implants and grafts ==

== ENCOUNTER → 2021-10-12 | Outpatient (REF) | payer BC | LOC: M LAB REF 14:12 | PROVIDERS: ATTEND Nurse Practitioner Family | DX: E83.42 Hypomagnesemia (principal) ==

== ENCOUNTER → 2021-10-26 | Outpatient (CLI) | payer BC ==
--- NOTE | 2021-10-26 09:58 | REP ---
INDICATION: HTN COMPARISON: 03/22/2018 TECHNIQUE: Real time minaya scale ultrasound examination using curved array transducer followed by color Doppler evaluation of the renal vasculature. FINDINGS: The bilateral kidneys are normal in appearance and without hydronephrosis or obvious abnormality. Right kidney measures 10.0 x 5.7 x 5.0 cm. Left kidney measures 10.5 x 5.0 x 5.9 cm. Bladder is normal and bilateral ureteral jets are identified. Color Doppler evaluation. Peak aortic velocity: 86 centimeters/second RIGHT KIDNEY Renal arterial velocity: 101 centimeters/second Renal-aortic ratio: 1.2 Intrarenal resistive indices: 0.80-0.83 Intrarenal acceleration times: 0.025-0.042 LEFT KIDNEY Renal arterial velocity: 75 centimeters/second Renal-aortic ratio: 0.88 Intrarenal resistive indices: 0.81-0.85 Intrarenal acceleration times: 0.025 IMPRESSION: 1. Kidneys appear normal. 2. Doppler interegation without sonographic evidence for renal arterial stenosis and essentially stable compared with prior examination. <Electronically signed by Srinivasa Mondragon > 10/26/21 0954
== END ==
LOC: M RAD 08:54
PROVIDERS: ATTEND Nurse Practitioner Family
DX: I12.9 Hypertensive chronic kidney disease with stage 1 through stage 4 chronic kidney disease, or unspecified chronic kidney disease (principal); N18.31 Chronic kidney disease, stage 3a

== ENCOUNTER → 2021-11-27 | Outpatient (CLI) | payer BC ==
[2021-11-27 09:03] LABS: BASO # 0.1 10^3/uL (0.0-0.2); BASO % 0.8 % (0.0-1.0); EOS # 0.1 10^3/uL (0.0-0.5); EOS % 1.6 % (0.0-3.0); HEMOGLOBIN 11.9 g/dl (13.5-17.5); LYMPH # 1.5 10^3/uL (1.5-5.0); LYMPH % 21.2 % (24.0-44.0); MEAN CORPUSCULAR HEMOGLOBIN 31.3 pg (27.0-33.0); MEAN CORPUSCULAR HGB CONC 32.2 g/dl (32.0-36.5); MEAN CORPUSCULAR VOLUME 97.4 fl (80.0-96.0); MONO # 0.8 10^3/uL (0.0-0.8); MONO % 10.7 % (2.0-8.0); NEUTROPHILS # 4.6 10^3/uL (1.5-8.5); NEUTROPHILS % 65.6 % (36.0-66.0); PLATELET COUNT, AUTOMATED 171 10^3/uL (150-450); WHITE BLOOD COUNT 7.1 10^3/uL (4.0-10.0)
[2021-11-27 09:16] LABS: CALCIUM LEVEL 9.5 MG/DL (8.8-10.2); CREATININE FOR GFR 1.73 MG/DL (0.70-1.30); POTASSIUM SERUM 4.9 MEQ/L (3.5-5.1)
[2021-11-27 09:42] LABS: HEMOGLOBIN A1c 5.4 %
== END ==
LOC: M LAB 08:26
PROVIDERS: ATTEND Family Medicine
DX: E11.51 Type 2 diabetes mellitus with diabetic peripheral angiopathy without gangrene (principal); D64.9 Anemia, unspecified

== ENCOUNTER → 2022-02-24 | Outpatient (CLI) | payer BC ==
[2022-02-24 10:38] LABS: CALCIUM LEVEL 9.7 MG/DL (8.8-10.2); CREATININE FOR GFR 2.16 MG/DL (0.70-1.30); GLOMERULAR FILTRATION RATE 32.5 (>49)
[2022-02-24 10:49] LABS: HEMOGLOBIN A1c 5.8 %
== END ==
LOC: M LAB 09:50
PROVIDERS: ATTEND Family Medicine
DX: E11.51 Type 2 diabetes mellitus with diabetic peripheral angiopathy without gangrene (principal)

== ENCOUNTER 2022-05-25 08:41 | Inpatient (IN) | payer BC ==
[~2022-05-25] VITALS: Ht 167.6 cm; Wt 77.4 kg
[2022-05-25] MEDS ORDERED: JARD1TAB PO (08:56)
[2022-05-25] MEDS ORDERED: RA N1TAB PO (08:56)
[2022-05-25] MEDS ORDERED: FERR325T3 PO (08:56)
[2022-05-25] MEDS ORDERED: METO1TAB33 PO (08:56)
[2022-05-25] MEDS ORDERED: TORS20TA2 PO (08:56)
[2022-05-25] MEDS ORDERED: ATOR80TA59 PO (08:56)
[2022-05-25] MEDS ORDERED: FAMO20TA PO (08:56)
[2022-05-25] MEDS ORDERED: HYDR100T PO (08:56)
[2022-05-25 09:57] LABS: BASO % 0.5 % (0.0-1.0); EOS % 0.4 % (0.0-3.0); HEMATOCRIT 36.7 % (42.0-52.0); HEMOGLOBIN 12.2 g/dl (13.5-17.5); LYMPH # 1.1 10^3/uL (1.5-5.0); LYMPH % 14.6 % (24.0-44.0); MEAN CORPUSCULAR HEMOGLOBIN 31.4 pg (27.0-33.0); MEAN CORPUSCULAR HGB CONC 33.2 g/dl (32.0-36.5); MEAN CORPUSCULAR VOLUME 94.6 fl (80.0-96.0); MONO # 1.1 10^3/uL (0.0-0.8); MONO % 13.8 % (2.0-8.0); NEUTROPHILS # 5.4 10^3/uL (1.5-8.5); NEUTROPHILS % 70.3 % (36.0-66.0); PLATELET COUNT, AUTOMATED 144 10^3/uL (150-450); RED BLOOD COUNT 3.88 10^6/uL (4.30-6.10); WHITE BLOOD COUNT 7.7 10^3/uL (4.0-10.0)
[2022-05-25 10:29] LABS: ERYTHROCYTE SEDIMENTATION RATE 59 mm/hr (0-20)
[2022-05-25 10:38] LABS: ALBUMIN 3.7 GM/DL (3.2-5.2); BILIRUBIN,DIRECT 0.4 MG/DL (0.0-0.2); BILIRUBIN,TOTAL 1.1 MG/DL (0.2-1.0); C REACTIVE PROTEIN QUANTITATIV 4.41 MG/DL (0.00-0.30); CALCIUM LEVEL 9.7 MG/DL (8.8-10.2); CREATININE FOR GFR 1.96 MG/DL (0.70-1.30); GLOMERULAR FILTRATION RATE 36.4 (>49); POTASSIUM SERUM 4.7 MEQ/L (3.5-5.1); TOTAL PROTEIN 7.8 GM/DL (6.4-8.2)
[2022-05-25] MEDS ORDERED: VANCOMYCIN HCL 1,500 MG in NS 250 ML IV ONE (13:50)
[2022-05-25] MEDS ORDERED: AMLO1TAB25 PO (14:45)
[2022-05-25] MEDS ORDERED: HOME MED LIST COMPLETE! XX SCH (14:45)
[2022-05-25] MEDS ORDERED: TIMO0.5S29 OU (14:45)
[2022-05-25] MEDS ORDERED: VANCOMYCIN HCL 750 MG, VIAL MATE ADAPTER 1 EACH in D5W 250 ML IV ONE ×2 (15:00→16:00)
[2022-05-25 15:26] LABS: RSV AMPLIFICATION NEGATIVE (NEGATIVE)
[2022-05-25] MEDS ORDERED: GLUCAGON INJ 1MG VIAL SC PRN (16:55)
[2022-05-25] MEDS ORDERED: GLUCOSE 4GM CHEW TABLET PO PRN (16:55)
[2022-05-25] MEDS ORDERED: DEXTROSE 50% 50 ML SYRINGE IV PRN (16:55)
[2022-05-25] MEDS ORDERED: MOM 30ML SUSPENSION UDC PO PRN (18:10)
[2022-05-25] MEDS ORDERED: ACETAMINOPHEN TAB 650MG DOSE (2X325MG) PO PRN (18:10)
[2022-05-25] MEDS ORDERED: MAALOX 30 ML SUSP *UDC PO PRN (18:10)
[2022-05-25] MEDS: INSULIN LISPRO (NovoLOG) PER UNIT SC SCH ×2 (18:47→21:40)
[2022-05-25 20:30] VITALS: BP 149/75
[2022-05-25] MEDS: METOPROLOL SUCC (TopROL XL) 50MG **XL** TAB PO SCH (21:53)
[2022-05-25] MEDS: FAMOTIDINE 20 MG TAB PO SCH (21:53)
[2022-05-25] MEDS: **hydrALAZINE** 50 MG TAB PO SCH (21:53)
[2022-05-25] MEDS: DOCUSATE SODIUM 100MG CAPSULE PO SCH (21:53)
[2022-05-25] MEDS ORDERED: VANCOMYCIN HCL 1,000 MG, VIAL MATE ADAPTER 1 EACH in D5W 250 ML IV SCH (23:00)
[2022-05-25] MEDS ORDERED: VANCOMYCIN HCL 750 MG, VIAL MATE ADAPTER 1 EACH in D5W 250 ML IV SCH (23:00)
[2022-05-25] MEDS: TIMOLOL MALEATE 0.5% OPHTH SOLN 5 ML OU SCH (23:04)
[2022-05-26] MEDS ORDERED: VANCOMYCIN HCL 500 MG in D5W MINI-BAG PLUS 100 ML IV SCH ×2
[2022-05-26 06:00] VITALS: BP 135/62
[2022-05-26] MEDS ORDERED: VANCOMYCIN HCL 750 MG, VIAL MATE ADAPTER 1 EACH in NS 250 ML IV SCH (06:00)
[2022-05-26 06:31] LABS: BASO % 0.6 % (0.0-1.0); EOS # 0.2 10^3/uL (0.0-0.5); EOS % 2.6 % (0.0-3.0); HEMATOCRIT 35.8 % (42.0-52.0); HEMOGLOBIN 11.7 g/dl (13.5-17.5); LYMPH # 1.1 10^3/uL (1.5-5.0); MEAN CORPUSCULAR HEMOGLOBIN 31.6 pg (27.0-33.0); MEAN CORPUSCULAR HGB CONC 32.7 g/dl (32.0-36.5); MEAN CORPUSCULAR VOLUME 96.8 fl (80.0-96.0); MONO # 0.9 10^3/uL (0.0-0.8); MONO % 14.3 % (2.0-8.0); NEUTROPHILS # 4.1 10^3/uL (1.5-8.5); NEUTROPHILS % 65.3 % (36.0-66.0); PLATELET COUNT, AUTOMATED 158 10^3/uL (150-450); WHITE BLOOD COUNT 6.2 10^3/uL (4.0-10.0)
[2022-05-26 07:13] LABS: ALBUMIN 3.1 GM/DL (3.2-5.2); BILIRUBIN,TOTAL 0.7 MG/DL (0.2-1.0); CALCIUM LEVEL 9.1 MG/DL (8.8-10.2); CREATININE FOR GFR 1.52 MG/DL (0.70-1.30); GLOMERULAR FILTRATION RATE 48.8 (>49); POTASSIUM SERUM 4.2 MEQ/L (3.5-5.1); TOTAL PROTEIN 6.9 GM/DL (6.4-8.2)
[2022-05-26] MEDS: INSULIN LISPRO (NovoLOG) PER UNIT SC SCH ×4 (08:40→21:00)
[2022-05-26] MEDS: TORSEMIDE 20 MG TAB PO SCH (08:40)
[2022-05-26] MEDS: DOCUSATE SODIUM 100MG CAPSULE PO SCH ×2 (08:40→21:26)
[2022-05-26] MEDS: CLOPIDOGREL 75 MG TAB PO SCH (08:40)
[2022-05-26] MEDS: MULTIVITAMINS/MINERALS THERAP 1 TAB PO SCH (08:40)
[2022-05-26] MEDS: **hydrALAZINE** 50 MG TAB PO SCH ×2 (08:40→21:00)
[2022-05-26] MEDS: FERROUS SULFATE 325MG TAB PO SCH (08:40)
[2022-05-26] MEDS: ATORVASTATIN 20 MG TAB PO SCH (08:41)
[2022-05-26] MEDS: TIMOLOL MALEATE 0.5% OPHTH SOLN 5 ML OU SCH ×2 (08:41→21:26)
[2022-05-26] MEDS: VANCOMYCIN HCL 500 MG in D5W MINI-BAG PLUS 100 ML IV SCH (11:48)
[2022-05-26] MEDS: AUGMENTIN 875 MG TAB PO SCH ×2 (11:49→21:26)
[2022-05-26 14:00] VITALS: BP 128/57
[2022-05-26] MEDS: FAMOTIDINE 20 MG TAB PO SCH (21:26)
[2022-05-26] MEDS: METOPROLOL SUCC (TopROL XL) 50MG **XL** TAB PO SCH (21:27)
[2022-05-26 22:00] VITALS: BP 117/61
[2022-05-27] MEDS: VANCOMYCIN HCL 500 MG in D5W MINI-BAG PLUS 100 ML IV SCH (00:05)
[2022-05-27 06:00] VITALS: BP 152/67
[2022-05-27 06:56] LABS: BASO # 0.1 10^3/uL (0.0-0.2); BASO % 0.7 % (0.0-1.0); EOS # 0.2 10^3/uL (0.0-0.5); EOS % 3.1 % (0.0-3.0); HEMATOCRIT 34.2 % (42.0-52.0); HEMOGLOBIN 11.4 g/dl (13.5-17.5); LYMPH # 1.3 10^3/uL (1.5-5.0); LYMPH % 19.3 % (24.0-44.0); MEAN CORPUSCULAR HEMOGLOBIN 31.9 pg (27.0-33.0); MEAN CORPUSCULAR HGB CONC 33.3 g/dl (32.0-36.5); MEAN CORPUSCULAR VOLUME 95.8 fl (80.0-96.0); MONO # 0.9 10^3/uL (0.0-0.8); MONO % 13.5 % (2.0-8.0); NEUTROPHILS # 4.3 10^3/uL (1.5-8.5); NEUTROPHILS % 63.1 % (36.0-66.0); PLATELET COUNT, AUTOMATED 151 10^3/uL (150-450); RED BLOOD COUNT 3.57 10^6/uL (4.30-6.10); WHITE BLOOD COUNT 6.7 10^3/uL (4.0-10.0)
[2022-05-27 07:33] LABS: ALBUMIN 2.9 GM/DL (3.2-5.2); BILIRUBIN,TOTAL 0.5 MG/DL (0.2-1.0); CREATININE FOR GFR 1.54 MG/DL (0.70-1.30); GLOMERULAR FILTRATION RATE 48.1 (>49); POTASSIUM SERUM 4.1 MEQ/L (3.5-5.1); TOTAL PROTEIN 6.4 GM/DL (6.4-8.2)
[2022-05-27] MEDS: ATORVASTATIN 20 MG TAB PO SCH (08:10)
[2022-05-27] MEDS: AUGMENTIN 875 MG TAB PO SCH (08:10)
[2022-05-27 08:11] VITALS: BP 148/64
[2022-05-27] MEDS: **hydrALAZINE** 50 MG TAB PO SCH (08:11)
[2022-05-27] MEDS: MULTIVITAMINS/MINERALS THERAP 1 TAB PO SCH (08:11)
[2022-05-27] MEDS: FERROUS SULFATE 325MG TAB PO SCH (08:11)
[2022-05-27] MEDS: DOCUSATE SODIUM 100MG CAPSULE PO SCH (08:11)
[2022-05-27] MEDS: CLOPIDOGREL 75 MG TAB PO SCH (08:11)
[2022-05-27] MEDS: INSULIN LISPRO (NovoLOG) PER UNIT SC SCH ×2 (08:12→12:00)
[2022-05-27] MEDS: TORSEMIDE 20 MG TAB PO SCH (08:53)
[2022-05-27] MEDS: TIMOLOL MALEATE 0.5% OPHTH SOLN 5 ML OU SCH (08:57)
[2022-05-27] MEDS ORDERED: MINO100C4 PO (11:28)
[2022-05-27] MEDS ORDERED: VANCOMYCIN HCL 750 MG, VIAL MATE ADAPTER 1 EACH in D5W 250 ML IV SCH (14:00)
== END 2022-05-27 13:15 | disposition home or self-care (01) | DRG 380 ==
LOC: M ED 08:41 → M ED INP 16:37 → ENRESERV 18:11 → M MSPAV 20:30
PROVIDERS: ADMIT Internal Medicine; ATTEND Internal Medicine
PROC: 0JBR0ZZ Excision of Left Foot Subcutaneous Tissue and Fascia, Open Approach (ICD-10-PCS; principal; 2022-05-26)
DX: E11.621 Type 2 diabetes mellitus with foot ulcer (principal); N17.9 Acute kidney failure, unspecified; E11.22 Type 2 diabetes mellitus with diabetic chronic kidney disease; E11.51 Type 2 diabetes mellitus with diabetic peripheral angiopathy without gangrene; L97.529 Non-pressure chronic ulcer of other part of left foot with unspecified severity; B95.62 Methicillin resistant Staphylococcus aureus infection as the cause of diseases classified elsewhere; E78.00 Pure hypercholesterolemia, unspecified; E78.5 Hyperlipidemia, unspecified; I12.9 Hypertensive chronic kidney disease with stage 1 through stage 4 chronic kidney disease, or unspecified chronic kidney disease; K21.9 Gastro-esophageal reflux disease without esophagitis; L02.612 Cutaneous abscess of left foot; N18.9 Chronic kidney disease, unspecified; D50.9 Iron deficiency anemia, unspecified; H40.9 Unspecified glaucoma; Z88.8 Allergy status to other drugs, medicaments and biological substances; Z79.4 Long term (current) use of insulin; Z87.891 Personal history of nicotine dependence; Z89.421 Acquired absence of other right toe(s)

== ENCOUNTER → 2022-06-07 | Outpatient (CLI) | payer BC ==
[~2022-06-07] MED LIST changes: +AMLO1TAB25 PO; +ATOR80TA59 PO; +FAMO20TA PO; +FERR325T3 PO; +HYDR100T PO; +JARD1TAB PO; +METO1TAB33 PO; +MINO100C4 PO; +RA N1TAB PO; +TORS20TA2 PO
[2022-06-07 11:32] LABS: HEMOGLOBIN A1c 5.9 %
[2022-06-07 12:21] LABS: CALCIUM LEVEL 9.7 MG/DL (8.8-10.2); CREATININE FOR GFR 1.82 MG/DL (0.70-1.30); GLOMERULAR FILTRATION RATE 39.6 (>49); POTASSIUM SERUM 4.6 MEQ/L (3.5-5.1)
== END ==
LOC: M LAB 09:27
PROVIDERS: ATTEND Family Medicine
DX: E11.51 Type 2 diabetes mellitus with diabetic peripheral angiopathy without gangrene (principal)

== ENCOUNTER → 2022-06-23 | Outpatient (REF) | payer BC | LOC: M SFHCDERM 16:17 | PROVIDERS: ATTEND Physician Assistant | DX: C44.622 Squamous cell carcinoma of skin of right upper limb, including shoulder (principal) ==

== ENCOUNTER → 2022-06-29 | Outpatient (POV) | payer BC | LOC: M IRPOV 14:29 | PROVIDERS: ATTEND Radiology Diagnostic Radiology | DX: E11.621 Type 2 diabetes mellitus with foot ulcer (principal); E11.22 Type 2 diabetes mellitus with diabetic chronic kidney disease; L97.429 Non-pressure chronic ulcer of left heel and midfoot with unspecified severity; I12.9 Hypertensive chronic kidney disease with stage 1 through stage 4 chronic kidney disease, or unspecified chronic kidney disease; N18.9 Chronic kidney disease, unspecified; Z87.891 Personal history of nicotine dependence; Z88.8 Allergy status to other drugs, medicaments and biological substances ==

== ENCOUNTER → 2022-08-09 | Outpatient (REF) | payer BC | LOC: M SFHCDERM 13:47 | PROVIDERS: ATTEND Physician Assistant | DX: L90.5 Scar conditions and fibrosis of skin (principal); L57.8 Other skin changes due to chronic exposure to nonionizing radiation ==

== ENCOUNTER → 2022-09-03 | Outpatient (CLI) | payer BC ==
[~2022-09-03] MED LIST changes: +CLOP75TA99 PO; -PLAV1TAB2 PO
== END ==
LOC: M RAD 08:26
PROVIDERS: ATTEND Nurse Practitioner Family
DX: I70.1 Atherosclerosis of renal artery (principal); N18.31 Chronic kidney disease, stage 3a; I12.9 Hypertensive chronic kidney disease with stage 1 through stage 4 chronic kidney disease, or unspecified chronic kidney disease

== ENCOUNTER → 2022-09-07 | Outpatient (CLI) | payer BC | LOC: M RAD 11:10 | PROVIDERS: ATTEND Podiatrist | DX: M14.60 Charcot's joint, unspecified site (principal); M79.672 Pain in left foot; E11.9 Type 2 diabetes mellitus without complications ==

== ENCOUNTER → 2022-11-03 | Outpatient (REF) | payer BC ==
[2022-11-03 18:44] LABS: MAU/CREAT RATIO 53.8 MCG/MG (0.0-30.0)
== END ==
LOC: M LAB REF 17:07
PROVIDERS: ATTEND Nurse Practitioner Family
DX: E11.22 Type 2 diabetes mellitus with diabetic chronic kidney disease (principal)

== ENCOUNTER → 2022-11-08 | Outpatient (CLI) | payer BC | LOC: M RAD 12:27 | PROVIDERS: ATTEND Physician Assistant | DX: Z48.812 Encounter for surgical aftercare following surgery on the circulatory system (principal); I70.293 Other atherosclerosis of native arteries of extremities, bilateral legs ==

== ENCOUNTER → 2022-12-02 | Outpatient (CLI) | payer BC ==
[2022-12-02 12:57] LABS: BASO # 0.1 10^3/uL (0.0-0.2); BASO % 0.7 % (0.0-1.0); EOS # 0.2 10^3/uL (0.0-0.5); HEMOGLOBIN 12.8 g/dl (13.5-17.5); LYMPH # 1.7 10^3/uL (1.5-5.0); LYMPH % 20.3 % (24.0-44.0); MEAN CORPUSCULAR HEMOGLOBIN 30.2 pg (27.0-33.0); MEAN CORPUSCULAR VOLUME 94.3 fl (80.0-96.0); MONO # 1.1 10^3/uL (0.0-0.8); MONO % 13.3 % (2.0-8.0); NEUTROPHILS # 5.4 10^3/uL (1.5-8.5); NEUTROPHILS % 63.3 % (36.0-66.0); PLATELET COUNT, AUTOMATED 185 10^3/uL (150-450); RED BLOOD COUNT 4.24 10^6/uL (4.30-6.10); WHITE BLOOD COUNT 8.5 10^3/uL (4.0-10.0)
[2022-12-02 13:14] LABS: HEMOGLOBIN A1c 6.3 % (4.0-6.0)
[2022-12-02 13:20] LABS: MALB URINE SIEMENS < 3.0 MG/DL; MAU/CREAT RATIO 17.6 MCG/MG (0.0-30.0)
[2022-12-02 13:38] LABS: ALBUMIN 3.5 G/DL (3.2-5.2); BILIRUBIN,TOTAL 0.5 MG/DL (0.3-1.2); CALCIUM LEVEL 9.3 MG/DL (8.3-10.6); CHOLESTEROL RISK RATIO 3.76 (<5); CREATININE FOR GFR 1.64 MG/DL (0.70-1.30); GLOMERULAR FILTRATION RATE 44.6 (>49); HDL CHOLESTEROL 51.3 MG/DL (>40); LDL CHOLESTEROL 109.5 MG/DL (<100); POTASSIUM SERUM 4.6 MMOL/L (3.5-5.1); TOTAL PROTEIN 7.1 G/DL (5.7-8.2)
== END ==
LOC: M LAB 11:49
PROVIDERS: ATTEND Family Medicine
DX: E11.59 Type 2 diabetes mellitus with other circulatory complications (principal); D64.9 Anemia, unspecified

== ENCOUNTER → 2022-12-02 | Outpatient (CLI) | payer BC ==
[2022-12-02 13:18] LABS: ALBUMIN 3.7 G/DL (3.2-5.2); CALCIUM LEVEL 9.6 MG/DL (8.3-10.6); CREATININE FOR GFR 1.67 MG/DL (0.70-1.30); GLOMERULAR FILTRATION RATE 43.6 (>49); PHOSPHORUS LEVEL 3.9 MG/DL (2.4-5.1); POTASSIUM SERUM 4.6 MMOL/L (3.5-5.1)
== END ==
LOC: M LAB 11:51
PROVIDERS: ATTEND Nurse Practitioner Family
DX: N18.31 Chronic kidney disease, stage 3a (principal)

== ENCOUNTER → 2023-01-18 | Outpatient (CLI) | payer BC | LOC: M RAD 10:41 | PROVIDERS: ATTEND Podiatrist | DX: M14.60 Charcot's joint, unspecified site (principal); M79.672 Pain in left foot; E11.9 Type 2 diabetes mellitus without complications ==

== ENCOUNTER → 2023-08-06 | Outpatient (CLI) | payer BC ==
[~2023-08-06] MED LIST changes: +ALLO100T; +EZET10TA21; +TIMO0.5S20 OU; -TIMO0.5S29 OU
[2023-08-06 11:37] LABS: ALBUMIN 3.8 G/DL (3.2-5.2); BILIRUBIN,TOTAL 0.9 MG/DL (0.3-1.2); CALCIUM LEVEL 9.4 MG/DL (8.3-10.6); CHOLESTEROL RISK RATIO 2.66 (<5); CREATININE FOR GFR 1.84 MG/DL (0.70-1.30); HDL CHOLESTEROL 49.2 MG/DL (>40); LDL CHOLESTEROL 42.6 MG/DL (<100); NON-HDL-C 81.8 MG/DL; POTASSIUM SERUM 4.1 MMOL/L (3.5-5.1); TOTAL PROTEIN 7.2 G/DL (5.7-8.2)
== END ==
LOC: M LAB 08:46
PROVIDERS: ATTEND Nurse Practitioner Family
DX: E78.00 Pure hypercholesterolemia, unspecified (principal)

== ENCOUNTER → 2023-08-06 | Outpatient (CLI) | payer BC ==
[2023-08-06 11:22] LABS: HEMOGLOBIN A1c 5.8 % (4.0-6.0)
[2023-08-06 11:37] LABS: CREATININE, URINE 14.9 MG/DL; MAU/CREAT RATIO 33.5 MCG/MG (0.0-30.0)
[2023-08-06 11:38] LABS: ALBUMIN 3.8 G/DL (3.2-5.2); BILIRUBIN,TOTAL 0.8 MG/DL (0.3-1.2); CALCIUM LEVEL 9.4 MG/DL (8.3-10.6); CREATININE FOR GFR 1.87 MG/DL (0.70-1.30); GLOMERULAR FILTRATION RATE 38.3 (>49); POTASSIUM SERUM 4.1 MMOL/L (3.5-5.1); TOTAL PROTEIN 7.3 G/DL (5.7-8.2)
== END ==
LOC: M LAB 08:44
PROVIDERS: ATTEND Family Medicine
DX: E11.59 Type 2 diabetes mellitus with other circulatory complications (principal)

== ENCOUNTER 2023-08-19 09:49 | Day surgery (SDC) | payer BC ==
[~2023-08-19] VITALS: Ht 168.9 cm; Wt 77.8 kg
[~2023-08-19 09:49] MED LIST changes: +NS 1,000 ML IV ONE
[2023-08-19] MEDS ORDERED: GLYCOPYRROLATE INJ 0.2 MG/ML 2 ML VIAL As Ordered ONE (11:30)
[2023-08-19 11:40] VITALS: TEMP 96.4
[2023-08-19] MEDS ORDERED: LIDOCAINE 2% 100MG/5ML SDV (FOR ANES.) As Ordered ONE (11:57)
[2023-08-19] MEDS ORDERED: propofoL 500 MG/50 ML VIAL As Ordered ONE (11:57)
[2023-08-19 12:00] VITALS: BP 111/59; O2SAT 97
== END 2023-08-19 12:07 | disposition home or self-care (01) ==
LOC: M OPP 09:49
PROVIDERS: ATTEND Internal Medicine Gastroenterology
DX: Z12.11 Encounter for screening for malignant neoplasm of colon (principal); Z86.010 Personal history of colon polyps; K57.30 Diverticulosis of large intestine without perforation or abscess without bleeding; K64.8 Other hemorrhoids; Z79.01 Long term (current) use of anticoagulants; Z79.02 Long term (current) use of antithrombotics/antiplatelets; Z79.2 Long term (current) use of antibiotics; Z79.84 Long term (current) use of oral hypoglycemic drugs; Z79.899 Other long term (current) drug therapy; Z88.8 Allergy status to other drugs, medicaments and biological substances; I25.10 Atherosclerotic heart disease of native coronary artery without angina pectoris; E11.9 Type 2 diabetes mellitus without complications; Z87.891 Personal history of nicotine dependence

== ENCOUNTER → 2023-10-21 | Outpatient (CLI) | payer BC, MEDICARE ==
[~2023-10-21] MED LIST changes: -NS 1,000 ML IV ONE
== END ==
LOC: M RAD 13:16
PROVIDERS: ATTEND Surgery Vascular Surgery
DX: I73.9 Peripheral vascular disease, unspecified (principal)

== ENCOUNTER → 2023-11-07 | Outpatient (CLI) | payer BC | LOC: M RAD 12:20 | PROVIDERS: ATTEND Physician Assistant | DX: I65.23 Occlusion and stenosis of bilateral carotid arteries (principal) ==

== ENCOUNTER → 2023-11-11 | Outpatient (REF) | payer BC ==
[2023-11-11 18:51] LABS: PERCENT SATURATION 31.1 % (19.7-50.0)
[2023-11-11 18:53] LABS: FERRITIN 334.4 NG/ML (10.5-307.3)
== END ==
LOC: M LAB REF 17:46
PROVIDERS: ATTEND Nurse Practitioner Family
DX: D50.9 Iron deficiency anemia, unspecified (principal)

== ENCOUNTER → 2024-03-21 | Outpatient (CLI) | payer MEDICARE ==
[~2024-03-21] MED LIST changes: +DOXY50CA35 PO; -DOXY50CA51 PO
[2024-03-21 10:04] LABS: HEMOGLOBIN A1c 6.2 % (4.0-6.0)
[2024-03-21 10:20] LABS: ALBUMIN 3.8 G/DL (3.2-5.2); BILIRUBIN,TOTAL 0.6 MG/DL (0.3-1.2); CALCIUM LEVEL 9.8 MG/DL (8.3-10.6); CREATININE FOR GFR 1.91 MG/DL (0.70-1.30); GLOMERULAR FILTRATION RATE 37.3 (>42); POTASSIUM SERUM 4.4 MMOL/L (3.5-5.1); TOTAL PROTEIN 7.3 G/DL (5.7-8.2)
== END ==
LOC: M LAB 09:18
PROVIDERS: ATTEND Family Medicine
DX: E11.59 Type 2 diabetes mellitus with other circulatory complications (principal)

== ENCOUNTER → 2024-09-05 | Outpatient (CLI) | payer MEDICARE ==
[~2024-09-05] MED LIST changes: -DOXY50CA35 PO; +DOXY50CA50 PO
== END ==
LOC: M LAB 09:11
PROVIDERS: ATTEND Nurse Practitioner Family
DX: E78.5 Hyperlipidemia, unspecified (principal); N18.31 Chronic kidney disease, stage 3a

== ENCOUNTER 2024-09-16 09:33 | Inpatient (IN) | payer MEDICARE ==
[~2024-09-16] VITALS: Ht 167.6 cm; Wt 75.9 kg
[~2024-09-16 09:33] MED LIST changes: -ALLO100T; +ALLO100T PO; -EZET10TA21; +EZET10TA21 PO
[2024-09-16 10:47] LABS: BASO # 0.1 10^3/uL (0.0-0.2); BASO % 0.4 % (0.0-1.0); EOS % 0.2 % (0.0-3.0); HEMATOCRIT 37.2 % (42.0-52.0); HEMOGLOBIN 12.2 g/dl (13.5-17.5); LYMPH # 1.2 10^3/uL (1.5-5.0); LYMPH % 7.2 % (24.0-44.0); MEAN CORPUSCULAR HGB CONC 32.8 g/dl (32.0-36.5); MEAN CORPUSCULAR VOLUME 94.4 fl (80.0-96.0); MONO # 1.2 10^3/uL (0.0-0.8); MONO % 7.5 % (2.0-8.0); NEUTROPHILS # 13.5 10^3/uL (1.5-8.5); NEUTROPHILS % 83.8 % (36.0-66.0); PLATELET COUNT, AUTOMATED 315 10^3/uL (150-450); RED BLOOD COUNT 3.94 10^6/uL (4.30-6.10); WHITE BLOOD COUNT 16.1 10^3/uL (4.0-10.0)
[2024-09-16 10:52] LABS: ERYTHROCYTE SEDIMENTATION RATE > 130 mm/hr (0-20)
[2024-09-16 11:14] LABS: C REACTIVE PROTEIN QUANTITATIV 17.3 MG/DL (<1.0)
[2024-09-16 11:15] LABS: CALCIUM LEVEL 9.2 MG/DL (8.3-10.6); CREATININE FOR GFR 1.82 MG/DL (0.70-1.30); GLOMERULAR FILTRATION RATE 39.4 (>42); POTASSIUM SERUM 5.2 MMOL/L (3.5-5.1)
[2024-09-16] MEDS ORDERED: MAGN400C PO (11:28)
[2024-09-16] MEDS ORDERED: METO1TAB33 PO (11:29)
[2024-09-16] MEDS ORDERED: DULO30CA9 PO (11:30)
[2024-09-16] MEDS ORDERED: FINE20TA PO (11:30)
[2024-09-16] MEDS: VANCOMYCIN/WATER FOR INJ (PEG) 1,500 MG in IV 1 EA IV ONE (11:54)
[2024-09-16] MEDS ORDERED: DEXTROSE 50% 50ML SYRINGE IV PRN (13:50)
[2024-09-16] MEDS ORDERED: GLUCAGON INJ 1MG VIAL SC PRN (13:50)
[2024-09-16] MEDS ORDERED: GLUCOSE 4 GM CHEW PO PRN (13:50)
[2024-09-16] MEDS ORDERED: ACETAMINOPHEN 325 MG TAB PO PRN (13:50)
[2024-09-16 16:05] VITALS: BP 135/61; TEMP 97.7; O2SAT 94
[2024-09-16] MEDS ORDERED: HOME MED LIST COMPLETE! XX SCH (16:05)
[2024-09-16] MEDS: INSULIN LISPRO (NovoLOG) PER UNIT SC SCH ×2 (17:18→21:00)
[2024-09-16] MEDS ORDERED: VANCOMYCIN/WATER FOR INJ 750 MG in IV 1 EA IV SCH (17:45)
[2024-09-16] MEDS: cefTRIAXone SOD 2 GM in DEXTROSE 5% (D5W) ADV/MINI-BAG 50 ML IV SCH (18:45)
[2024-09-16] MEDS ORDERED: HEPARIN SOD (PORCINE) 5000UNITS/ML 1ML VIAL/SYRINGE SC SCH (21:00)
[2024-09-16 21:19] VITALS: BP 116/56; TEMP 97.9; O2SAT 95
[2024-09-16] MEDS: LATANOPROST 0.005% OPHTH SOLN 2.5 ML OU SCH (21:33)
[2024-09-16] MEDS: DOCUSATE SODIUM 100MG CAPSULE PO SCH (21:33)
[2024-09-16] MEDS: VANCOMYCIN HCL 500 MG in DEXTROSE 5% (D5W) MINI-BAG PLU 100 ML IV SCH (21:33)
[2024-09-16] MEDS: FAMOTIDINE 20 MG TAB PO SCH (21:33)
[2024-09-17 04:00] VITALS: BP 115/56; TEMP 97.7; O2SAT 100
[2024-09-17 08:35] LABS: BASO # 0.1 10^3/uL (0.0-0.2); BASO % 0.4 % (0.0-1.0); EOS # 0.1 10^3/uL (0.0-0.5); EOS % 0.6 % (0.0-3.0); HEMATOCRIT 34.8 % (42.0-52.0); HEMOGLOBIN 11.6 g/dl (13.5-17.5); LYMPH # 1.6 10^3/uL (1.5-5.0); LYMPH % 11.6 % (24.0-44.0); MEAN CORPUSCULAR HEMOGLOBIN 31.4 pg (27.0-33.0); MEAN CORPUSCULAR HGB CONC 33.3 g/dl (32.0-36.5); MEAN CORPUSCULAR VOLUME 94.1 fl (80.0-96.0); MONO # 1.2 10^3/uL (0.0-0.8); MONO % 8.6 % (2.0-8.0); NEUTROPHILS # 10.7 10^3/uL (1.5-8.5); NEUTROPHILS % 78.1 % (36.0-66.0); PLATELET COUNT, AUTOMATED 312 10^3/uL (150-450); WHITE BLOOD COUNT 13.7 10^3/uL (4.0-10.0)
[2024-09-17] MEDS: ATORVASTATIN 20 MG TAB PO SCH (08:35)
[2024-09-17] MEDS: METOPROLOL SUCC (TopROL XL) 100MG *XL* TAB PO SCH (08:35)
[2024-09-17] MEDS: MAGNESIUM OXIDE 400MG TAB (MAG-OX) PO SCH (08:35)
[2024-09-17] MEDS: EZETIMIBE 10MG TABLET (ZETIA) PO SCH (08:36)
[2024-09-17] MEDS: DULoxetine 30MG CAPSULE (CYMBALTA) PO SCH (08:36)
[2024-09-17] MEDS: FERROUS SULFATE 325MG TAB PO SCH (08:36)
[2024-09-17] MEDS: allopurinoL 100 MG TAB PO SCH (08:36)
[2024-09-17 09:06] LABS: ALBUMIN 2.3 G/DL (3.2-5.2); BILIRUBIN,DIRECT 0.2 MG/DL (<0.4); BILIRUBIN,TOTAL 0.4 MG/DL (0.3-1.2); TOTAL PROTEIN 6.7 G/DL (5.7-8.2)
[2024-09-17 09:08] LABS: CREATININE FOR GFR 1.68 MG/DL (0.70-1.30); GLOMERULAR FILTRATION RATE 43.2 (>42)
[2024-09-17 10:05] LABS: C REACTIVE PROTEIN QUANTITATIV 20.5 MG/DL (<1.0)
[2024-09-17 10:32] LABS: PROCALCITONIN 0.36 ng/ml
[2024-09-17 12:00] VITALS: BP 125/57; TEMP 97.5; O2SAT 94
[2024-09-17 19:38] VITALS: BP 126/57; TEMP 98.1; O2SAT 99
[2024-09-18] VITALS (10 sets, daily range): BP systolic 108–146; BP diastolic 49–75; TEMP 97.3–97.7; O2SAT 93–100
[2024-09-18 05:58] LABS: BASO % 0.3 % (0.0-1.0); EOS # 0.1 10^3/uL (0.0-0.5); HEMATOCRIT 33.5 % (42.0-52.0); HEMOGLOBIN 10.8 g/dl (13.5-17.5); LYMPH # 1.5 10^3/uL (1.5-5.0); MEAN CORPUSCULAR HEMOGLOBIN 30.2 pg (27.0-33.0); MEAN CORPUSCULAR HGB CONC 32.2 g/dl (32.0-36.5); MEAN CORPUSCULAR VOLUME 93.6 fl (80.0-96.0); MONO # 1.3 10^3/uL (0.0-0.8); NEUTROPHILS # 9.6 10^3/uL (1.5-8.5); NEUTROPHILS % 76.1 % (36.0-66.0); PLATELET COUNT, AUTOMATED 306 10^3/uL (150-450); RED BLOOD COUNT 3.58 10^6/uL (4.30-6.10); WHITE BLOOD COUNT 12.5 10^3/uL (4.0-10.0)
[2024-09-18 06:22] LABS: C REACTIVE PROTEIN QUANTITATIV 15.5 MG/DL (<1.0)
[2024-09-18 06:23] LABS: CREATININE FOR GFR 1.48 MG/DL (0.70-1.30); POTASSIUM SERUM 4.7 MMOL/L (3.5-5.1)
[2024-09-18] MEDS ORDERED: propofoL 200 MG/20 ML VIAL As Ordered ONE (12:32)
[2024-09-18] MEDS ORDERED: LIDOCAINE 2% 100MG/5ML SDV (FOR ANES.) As Ordered ONE (12:32)
[2024-09-18] MEDS ORDERED: dexmedeTOMIDine (4MCG/ML)200MCG/50ML BTL (PRECEDEX) As Ordered ONE (12:32)
[2024-09-18] MEDS ORDERED: fentaNYL 100 MCG/2 ML INJECTION As Ordered ONE (12:32)
[2024-09-18] MEDS ORDERED: METOCLOPRAMIDE INJ 10MG/2ML VIAL As Ordered ONE (12:32)
[2024-09-18] MEDS ORDERED: ONDANSETRON 4MG 2ML VIAL As Ordered ONE (12:32)
[2024-09-18] MEDS ORDERED: MIDAZOLAM INJ 2MG/2ML VIAL As Ordered ONE (12:32)
[2024-09-18] MEDS ORDERED: ACETAMINOPHEN 1000MG/100ML IV BAG As Ordered ONE (12:33)
[2024-09-18] MEDS: ceFAZolin 2 GM/D5W 50 ML IV BAG As Ordered ONE (12:38)
[2024-09-18] MEDS ORDERED: fentaNYL 100 MCG/2 ML INJECTION IV PRN (13:05)
[2024-09-18] MEDS ORDERED: ONDANSETRON 4MG 2ML VIAL IV PRN (13:05)
[2024-09-18] MEDS ORDERED: oxyCODONE 5MG TAB PO PRN (13:05)
[2024-09-18] MEDS ORDERED: HYDROMORPHONE HCL 0.5 MG/ 0.5 ML SYRINGE IV PRN (13:05)
[2024-09-18] MEDS: CLINDAMYCIN 600MG/50ML PREMIX BAG As Ordered ONE (13:07)
[2024-09-18] MEDS: **hydrALAZINE** 50 MG TAB PO SCH (20:58)
[2024-09-18] MEDS: INSULIN LISPRO (NovoLOG) PER UNIT SC ONE (22:02)
[2024-09-19 02:30] VITALS: BP 145/70; TEMP 97.6; O2SAT 97
[2024-09-19 05:57] LABS: BASO % 0.1 % (0.0-1.0); HEMATOCRIT 34.8 % (42.0-52.0); HEMOGLOBIN 11.3 g/dl (13.5-17.5); LYMPH % 7.2 % (24.0-44.0); MEAN CORPUSCULAR HEMOGLOBIN 30.5 pg (27.0-33.0); MEAN CORPUSCULAR HGB CONC 32.5 g/dl (32.0-36.5); MEAN CORPUSCULAR VOLUME 93.8 fl (80.0-96.0); MONO # 0.7 10^3/uL (0.0-0.8); MONO % 5.2 % (2.0-8.0); NEUTROPHILS # 12.2 10^3/uL (1.5-8.5); NEUTROPHILS % 86.6 % (36.0-66.0); PLATELET COUNT, AUTOMATED 333 10^3/uL (150-450); RED BLOOD COUNT 3.71 10^6/uL (4.30-6.10); WHITE BLOOD COUNT 14.1 10^3/uL (4.0-10.0)
[2024-09-19 06:21] LABS: C REACTIVE PROTEIN QUANTITATIV 13.3 MG/DL (<1.0)
[2024-09-19 06:23] LABS: CREATININE FOR GFR 1.32 MG/DL (0.70-1.30); GLOMERULAR FILTRATION RATE 57.1 (>42); POTASSIUM SERUM 4.7 MMOL/L (3.5-5.1)
[2024-09-19 06:30] VITALS: BP 132/58; TEMP 97.7; O2SAT 93
[2024-09-19 10:00] VITALS: BP 120/48; TEMP 97.7; O2SAT 96
[2024-09-19 12:00] VITALS: BP 132/61; TEMP 97.5; O2SAT 96
[2024-09-19 20:44] VITALS: BP 139/62; TEMP 97.9; O2SAT 97
[2024-09-20 04:30] VITALS: BP 134/61; TEMP 97.9; O2SAT 98
[2024-09-20 06:19] LABS: BASO # 0.1 10^3/uL (0.0-0.2); BASO % 0.5 % (0.0-1.0); EOS # 0.2 10^3/uL (0.0-0.5); EOS % 1.9 % (0.0-3.0); HEMATOCRIT 31.9 % (42.0-52.0); HEMOGLOBIN 10.2 g/dl (13.5-17.5); LYMPH # 1.9 10^3/uL (1.5-5.0); LYMPH % 20.6 % (24.0-44.0); MEAN CORPUSCULAR HEMOGLOBIN 30.4 pg (27.0-33.0); MEAN CORPUSCULAR VOLUME 94.9 fl (80.0-96.0); MONO # 0.9 10^3/uL (0.0-0.8); NEUTROPHILS # 6.2 10^3/uL (1.5-8.5); NEUTROPHILS % 66.5 % (36.0-66.0); PLATELET COUNT, AUTOMATED 297 10^3/uL (150-450); RED BLOOD COUNT 3.36 10^6/uL (4.30-6.10); WHITE BLOOD COUNT 9.4 10^3/uL (4.0-10.0)
[2024-09-20 06:42] LABS: BLOOD UREA NITROGEN 38 MG/DL (9-23); CALCIUM LEVEL 8.6 MG/DL (8.3-10.6); CARBON DIOXIDE LEVEL 25 MMOL/L (20-31); CHLORIDE LEVEL 109 MMOL/L (98-107); CREATININE FOR GFR 1.21 MG/DL (0.70-1.30); GLOMERULAR FILTRATION RATE > 60.0 (>42); GLUCOSE, FASTING 166 MG/DL (74-106); POTASSIUM SERUM 4.8 MMOL/L (3.5-5.1); SODIUM LEVEL 139 MMOL/L (136-145)
[2024-09-20] MEDS ORDERED: ENOXAPARIN 40MG/0.4ML SYRINGE (J1650 PER 10MG) SC SCH (09:00)
[2024-09-20] MEDS: TORSEMIDE 20 MG TAB PO SCH (09:50)
[2024-09-20] MEDS: CLOPIDOGREL 75 MG TAB PO SCH (09:50)
[2024-09-20 12:00] VITALS: BP 146/63; TEMP 97.7; O2SAT 97
[2024-09-20 19:52] VITALS: BP 141/65; TEMP 97.9; O2SAT 96
[2024-09-21 04:03] VITALS: BP 113/54; TEMP 98.1; O2SAT 94
[2024-09-21] MEDS ORDERED: ACET32TAB PO (07:18)
[2024-09-21] MEDS ORDERED: COLA100C5 PO (07:18)
[2024-09-21] MEDS ORDERED: AMOX875T2 PO (07:52)
[2024-09-21] MEDS ORDERED: PROB250C PO (07:52)
[2024-09-21 08:01] LABS: BASO # 0.1 10^3/uL (0.0-0.2); BASO % 0.6 % (0.0-1.0); EOS # 0.2 10^3/uL (0.0-0.5); EOS % 2.2 % (0.0-3.0); HEMATOCRIT 34.1 % (42.0-52.0); HEMOGLOBIN 11.3 g/dl (13.5-17.5); LYMPH # 1.8 10^3/uL (1.5-5.0); LYMPH % 19.1 % (24.0-44.0); MEAN CORPUSCULAR HEMOGLOBIN 31.5 pg (27.0-33.0); MEAN CORPUSCULAR HGB CONC 33.1 g/dl (32.0-36.5); NEUTROPHILS # 6.3 10^3/uL (1.5-8.5); NEUTROPHILS % 66.5 % (36.0-66.0); PLATELET COUNT, AUTOMATED 321 10^3/uL (150-450); RED BLOOD COUNT 3.59 10^6/uL (4.30-6.10); WHITE BLOOD COUNT 9.5 10^3/uL (4.0-10.0)
[2024-09-21 08:26] LABS: BLOOD UREA NITROGEN 37 MG/DL (9-23); CALCIUM LEVEL 8.9 MG/DL (8.3-10.6); CARBON DIOXIDE LEVEL 25 MMOL/L (20-31); CHLORIDE LEVEL 111 MMOL/L (98-107); CREATININE FOR GFR 1.17 MG/DL (0.70-1.30); GLOMERULAR FILTRATION RATE > 60.0 (>42); GLUCOSE, FASTING 178 MG/DL (74-106); POTASSIUM SERUM 4.6 MMOL/L (3.5-5.1); SODIUM LEVEL 140 MMOL/L (136-145)
[2024-09-21 08:45] VITALS: BP 125/56
== END 2024-09-21 10:07 | disposition home or self-care (01) | DRG 257 ==
LOC: M ED 09:33 → EEVIPCON 13:49 → M ED INP 13:49 → M MSPAV 16:07
PROVIDERS: ADMIT Internal Medicine Nephrology; ATTEND Internal Medicine
PROC: 0Y6R0Z0 Detachment at Right 2nd Toe, Complete, Open Approach (ICD-10-PCS; principal; 2024-09-18 12:00)
DX: E11.52 Type 2 diabetes mellitus with diabetic peripheral angiopathy with gangrene (principal); E11.628 Type 2 diabetes mellitus with other skin complications; E11.40 Type 2 diabetes mellitus with diabetic neuropathy, unspecified; I12.9 Hypertensive chronic kidney disease with stage 1 through stage 4 chronic kidney disease, or unspecified chronic kidney disease; H40.9 Unspecified glaucoma; E78.5 Hyperlipidemia, unspecified; K21.9 Gastro-esophageal reflux disease without esophagitis; E11.610 Type 2 diabetes mellitus with diabetic neuropathic arthropathy; E11.22 Type 2 diabetes mellitus with diabetic chronic kidney disease; N18.30 Chronic kidney disease, stage 3 unspecified; E11.621 Type 2 diabetes mellitus with foot ulcer; M10.9 Gout, unspecified; Z89.421 Acquired absence of other right toe(s); Z88.8 Allergy status to other drugs, medicaments and biological substances; Z79.899 Other long term (current) drug therapy; I25.10 Atherosclerotic heart disease of native coronary artery without angina pectoris; Z86.718 Personal history of other venous thrombosis and embolism

== ENCOUNTER → 2024-09-26 | Outpatient (CLI) | payer MEDICARE ==
[~2024-09-26] MED LIST changes: +ACET32TAB PO; +AMOX875T2 PO; +COLA100C5 PO; +DULO30CA9 PO; +FINE20TA PO; +MAGN400C PO; +PROB250C PO
== END ==
LOC: M SOG 15:27
PROVIDERS: ATTEND Physician Assistant
DX: M79.672 Pain in left foot (principal); Z89.421 Acquired absence of other right toe(s); M19.071 Primary osteoarthritis, right ankle and foot

== ENCOUNTER → 2024-10-05 | Outpatient (CLI) | payer MEDICARE | LOC: M RAD 11:17 | PROVIDERS: ATTEND Physician Assistant | DX: Z48.812 Encounter for surgical aftercare following surgery on the circulatory system (principal); I65.23 Occlusion and stenosis of bilateral carotid arteries; I71.43 Infrarenal abdominal aortic aneurysm, without rupture ==

== ENCOUNTER → 2024-10-28 | Outpatient (CLI) | payer MEDICARE ==
[2024-10-28 10:01] LABS: ALBUMIN 3.4 G/DL (3.2-5.2); BILIRUBIN,TOTAL 0.5 MG/DL (0.3-1.2); CALCIUM LEVEL 9.4 MG/DL (8.3-10.6); CHOLESTEROL RISK RATIO 5.2 (<5); CREATININE FOR GFR 1.86 MG/DL (0.70-1.30); CREATININE, URINE 35.8 MG/DL; GLOMERULAR FILTRATION RATE 38.4 (>42); HDL CHOLESTEROL 21.9 MG/DL (>40); LDL CHOLESTEROL 49.1 MG/DL (<100); NON-HDL-C 92.1 MG/DL; POTASSIUM SERUM 4.5 MMOL/L (3.5-5.1); TOTAL PROTEIN 7.3 G/DL (5.7-8.2)
[2024-10-28 10:02] LABS: MAU/CREAT RATIO 33.5 MCG/MG (0.0-30.0)
[2024-10-28 10:08] LABS: HEMOGLOBIN A1c 8.9 % (4.0-6.0)
== END ==
LOC: M LAB 08:40
PROVIDERS: ATTEND Family Medicine
DX: E11.51 Type 2 diabetes mellitus with diabetic peripheral angiopathy without gangrene (principal); E78.5 Hyperlipidemia, unspecified

== ENCOUNTER → 2024-11-08 | Outpatient (CLI) | payer MEDICARE ==
[~2024-11-08] MED LIST changes: +ISOVUE-370 76% 100ML VIAL As Ordered ONE
== END ==
LOC: M RAD 17:07
PROVIDERS: ATTEND Physician Assistant
DX: I70.6 Atherosclerosis of nonbiological bypass graft(s) of the extremities (principal)
CPT/HCPCS: 75635; Q9967

== ENCOUNTER 2025-01-10 09:33 | Day surgery (SDC) | payer MEDICARE ==
[~2025-01-10] VITALS: Ht 167.6 cm; Wt 77.2 kg
[~2025-01-10 09:33] MED LIST changes: +GLIP5TAB17 PO; -ISOVUE-370 76% 100ML VIAL As Ordered ONE; +JARD1TAB3 PO; +METO1TAB7 PO
[2025-01-10] MEDS ORDERED: LR 1,000 ML IV SCH (10:25)
[2025-01-10] MEDS ORDERED: LIDOCAINE 2% 100MG/5ML SDV (FOR ANES.) As Ordered ONE (10:56)
[2025-01-10] MEDS ORDERED: propofoL 200 MG/20 ML VIAL As Ordered ONE (10:56)
[2025-01-10] MEDS ORDERED: KETOROLAC 30 MG/ML 1ML VIAL As Ordered ONE (11:01)
[2025-01-10] MEDS ORDERED: MIDAZOLAM INJ 2MG/2ML VIAL As Ordered ONE (11:02)
[2025-01-10] MEDS ORDERED: fentaNYL 100 MCG/2 ML INJECTION As Ordered ONE (11:02)
[2025-01-10] MEDS: ceFAZolin SOD 2 GM IV ONCE IV ONE (11:12)
[2025-01-10] MEDS: BUPivacaine LIPOSOME/PF 266MG 20ML VIAL (13.3MG/ML)(EXPAREL) As Ordered ONE (11:47)
[2025-01-10 12:40] VITALS: BP 150/68; TEMP 97.8; O2SAT 98
== END 2025-01-10 12:50 | disposition home or self-care (01) ==
LOC: M SDC 09:33
PROVIDERS: ATTEND Surgery
DX: C43.62 Malignant melanoma of left upper limb, including shoulder (principal); I25.10 Atherosclerotic heart disease of native coronary artery without angina pectoris; I12.9 Hypertensive chronic kidney disease with stage 1 through stage 4 chronic kidney disease, or unspecified chronic kidney disease; E11.9 Type 2 diabetes mellitus without complications; E78.5 Hyperlipidemia, unspecified; K21.9 Gastro-esophageal reflux disease without esophagitis; M10.9 Gout, unspecified; F41.9 Anxiety disorder, unspecified; N18.30 Chronic kidney disease, stage 3 unspecified; Z79.899 Other long term (current) drug therapy; Z79.84 Long term (current) use of oral hypoglycemic drugs; Z79.01 Long term (current) use of anticoagulants; Z88.8 Allergy status to other drugs, medicaments and biological substances
CPT/HCPCS: 11603; 12032; 88307; J0665; J0666; J0690; J1885; J2250; J3010

== ENCOUNTER → 2025-02-14 | Outpatient (REF) | payer MEDICARE | LOC: M SFHCDERM 14:38 | PROVIDERS: ATTEND Dermatology | DX: C44.92 Squamous cell carcinoma of skin, unspecified (principal) ==

== ENCOUNTER → 2025-02-18 | Outpatient (CLI) | payer MEDICARE ==
[2025-02-18 10:25] LABS: CREATININE FOR GFR 1.69 MG/DL (0.70-1.30); GLOMERULAR FILTRATION RATE 42.9 (>42); POTASSIUM SERUM 4.2 MMOL/L (3.5-5.1)
[2025-02-18 10:32] LABS: HEMOGLOBIN A1c 5.9 % (4.0-6.0)
== END ==
LOC: M LAB 09:16
PROVIDERS: ATTEND Family Medicine
DX: E11.59 Type 2 diabetes mellitus with other circulatory complications (principal)

== ENCOUNTER → 2025-02-21 | Outpatient (REF) | payer MEDICARE | LOC: M LAB REF 15:50 | PROVIDERS: ATTEND Surgery | DX: C44.622 Squamous cell carcinoma of skin of right upper limb, including shoulder (principal); L57.8 Other skin changes due to chronic exposure to nonionizing radiation; L90.5 Scar conditions and fibrosis of skin ==

== ENCOUNTER → 2025-06-13 | Outpatient (REF) | payer MEDICARE ==
[~2025-06-13] MED LIST changes: +LISI40TA10 PO; -LISI40TA4 PO
== END ==
LOC: M LAB REF 16:42
PROVIDERS: ATTEND Surgery
DX: D03.9 Melanoma in situ, unspecified (principal)

== ENCOUNTER → 2025-08-24 | Outpatient (CLI) | payer MEDICARE ==
[~2025-08-24] MED LIST changes: -EZET10TA21 PO; +EZET10TA57 PO
[2025-08-24 11:07] LABS: BASO # 0.1 10^3/uL (0.0-0.2); BASO % 0.7 % (0.0-1.0); EOS # 0.2 10^3/uL (0.0-0.5); EOS % 2.4 % (0.0-3.0); LYMPH # 2.0 10^3/uL (1.5-5.0); LYMPH % 23.9 % (24.0-44.0); MONO # 0.9 10^3/uL (0.0-0.8); MONO % 11.4 % (2.0-8.0); NEUTROPHILS # 5.0 10^3/uL (1.5-8.5); NEUTROPHILS % 61.4 % (36.0-66.0); PLATELET COUNT, AUTOMATED 211 10^3/uL (150-450)
[2025-08-24 11:22] LABS: ESTIMATED AVERAGE GLUCOSE 111.0 MG/DL (60-110)
[2025-08-24 11:30] LABS: ALT/SGPT 29.0 U/L (7.0-40); AST/SGOT 24.0 U/L (<34); CALCIUM LEVEL 9.0 MG/DL (8.3-10.6); CARBON DIOXIDE LEVEL 27.0 MMOL/L (20-31); CHLORIDE LEVEL 105.0 MMOL/L (98-107); CREATININE FOR GFR 2.15 MG/DL (0.70-1.30); GLOMERULAR FILTRATION RATE 32.1 (>42); POTASSIUM SERUM 4.3 MMOL/L (3.5-5.1); SODIUM LEVEL 142.0 MMOL/L (136-145)
== END ==
LOC: M LAB 10:08
PROVIDERS: ATTEND Family Medicine
DX: E11.51 Type 2 diabetes mellitus with diabetic peripheral angiopathy without gangrene (principal); N18.30 Chronic kidney disease, stage 3 unspecified; Z79.899 Other long term (current) drug therapy